=== PATIENT | female | born 1960 | race Caucasian/White ===

== ENCOUNTER 2022-09-21 10:11 | Outpatient (REF) | payer OTHER, SELFPAY ==
--- NOTE | 2022-09-21 10:19 | ECG_ITS ---
Test Reason : cp Blood Pressure : / mmHG Vent. Rate : 066 BPM Atrial Rate : 066 BPM P-R Int : 188 ms QRS Dur : 080 ms QT Int : 388 ms P-R-T Axes : 000 174 127 degrees QTc Int : 406 ms Limb leads reversal Normal sinus rhythm Left posterior fascicular block Abnormal ECG No previous ECGs available Referred By: Larisa Amato Electronically Signed By:Salvatore Martinez
[2022-09-21 10:27] LABS: MANUAL DIFF FLAG NO
[2022-09-21 10:47] LABS: Basophils Absolute Auto 0.1 X10*3/uL (0.0-0.2); Basophils Percent Auto 0.5 % (0-2); Eosinophils Absolute Auto 0.3 X10*3/uL (0.0-0.4); Eosinophils Percent Auto 2.8 % (0-4); Hematocrit 42.6 % (37.0-47.0); Hemoglobin 13.8 g/dl (12.0-16.0); Imm Gran Abs Auto 0.05 X10*3/uL (0.00-0.03); Imm Gran Pct Auto 0.4 % (0.0-0.4); Lymphocytes Absolute Auto 1.5 X10*3/uL (1.2-4.9); Lymphocytes Percent Auto 13.4 % (20-40); Mean Corpuscular HGB Conc 32.4 g/dl (31.0-35.0); Mean Corpuscular Hemoglobin 26.3 pg (27.0-33.0); Mean Corpuscular Volume 81.1 fL (80.0-98.0); Mean Platelet Volume 9.7 fL (9.4-12.3); Monocytes Absolute Auto 0.7 X10*3/uL (0.1-1.2); Monocytes Percent Auto 5.7 % (2-11); Neutrophils Absolute Auto 8.9 x10*3/uL (2.0-8.3); Neutrophils Percent Auto 77.2 % (45-73); Platelet Count 284 X10*3/uL (160-400); Red Blood Count 5.25 X10*6/uL (4.20-5.50); Red Cell Distribution Width 15.6 % (11.0-16.0); White Blood Count 11.5 X10*3/uL (4.8-10.8)
[2022-09-21 10:54] LABS: Estimated Average Glucose 123 mg/dL; Hemoglobin A1c % 5.9 %
[2022-09-21 11:35] LABS: Alanine Aminotransferase 8 U/L (0-31); Albumin Level 4.2 g/dL (3.5-5.0); Alkaline Phosphatase 71 U/L (39-117); Anion Gap 11 (12-20); Aspartate Amino Transferase 12 U/L (5-31); Bilirubin Total 0.3 mg/dL (0.0-1.0); Blood Urea Nitrogen 24 mg/dL (9-16); Carbon Dioxide 25 mmol/L (22-29); Chloride 109 mmol/L (96-108); Cholesterol 178 mg/dL; Estimated Glomerular Filt Rate 32; Glucose Fasting 108 mg/dL (60-99); HDL Cholesterol 31 mg/dL; LDL Cholesterol Calculated 108 mg/dl; Potassium 4.2 mmol/L (3.3-5.1); Sodium 141 mmol/L (135-145); Total Protein 7.4 g/dL (6.5-8.0); Triglycerides 197 mg/dL
[2022-09-21 11:50] LABS: Vitamin B12 696 pg/mL (200-900)
[2022-09-21 11:52] LABS: TSH reflex Free T4 4.36 uIU/mL (0.32-4.0); Vitamin D 25-OH Total 28.5 ng/mL (>30)
[2022-09-21 12:47] LABS: Free T4 (Free Thyroxine) 0.84 ng/dL (0.71-1.85)
[2022-09-28 14:54] LABS: Vitamin B1 8 nmol/L (8-30)
== END 2022-09-21 10:12 | disposition home or self-care (01) ==
LOC: HO.LAB 10:11
PROVIDERS: PCP Internal Medicine; Visit Provider Nurse Practitioner Family
DX: Z13.220 Encounter for screening for lipoid disorders (principal); Z13.29 Encounter for screening for other suspected endocrine disorder; Z13.21 Encounter for screening for nutritional disorder; Z13.0 Encounter for screening for diseases of the blood and blood-forming organs and certain disorders involving the immune mechanism; R07.9 Chest pain, unspecified; G62.9 Polyneuropathy, unspecified; E11.9 Type 2 diabetes mellitus without complications
CPT/HCPCS: 36415; 80053; 80061; 82306; 82607; 82746; 83036; 84425; 84439; 84443; 85025; 93005

== ENCOUNTER → 2022-09-21 10:19 | Outpatient (BNV) | payer OTHER, SELFPAY | PROVIDERS: PCP Internal Medicine; Visit Provider Internal Medicine Cardiovascular Disease | DX: I44.5 Left posterior fascicular block (principal); R94.31 Abnormal electrocardiogram [ECG] [EKG] | CPT/HCPCS: 93010 ==

== ENCOUNTER 2022-10-07 07:31 | Outpatient (AMB) | payer OTHER, SELFPAY ==
[2022-10-07 07:33] VITALS: BP 130/76; PULSE 59; O2SAT 95; BMI 35.9
--- NOTE | 2022-10-07 07:33 | A.OFFPC_ITS ---
Vital Signs 10/07/22 07:33 Height 5 ft 1.5 in Weight 193 lb BMI 35.9 BP 130/76 Blood Pressure Location Lt brachial Position Sitting Pulse 59 Pulse Source Pulse Oximeter Pulse Oximetry (%) 95 Oxygen Delivery Method Room Air Intake Visit Reasons: PE Intake Note: Patient is requesting gabapentin 300 BID. Requesting refill on insulins requesting a 90 day supply. Allergies No Known Allergies Allergy (Verified 10/07/22 07:52) Medication List - Last Reconciled 10/07/22 by VAISHNAVI Beaver aspirin 81 mg PO DAILY atorvastatin 80 mg PO BEDTIME clopidogrel 75 mg PO DAILY famotidine (Pepcid) 20 mg PO DAILY insulin glargine (Basaglar KwikPen U-100 Insulin) 20 units (0.2 mL) subcut QPM insulin lispro 12 units (0.12 mL) subcut TID metoprolol tartrate 25 mg PO BID Tobacco use date assessed: 08/05/22 Dental Screening Dental Screen Date: 10/07/22 Did you have a dental visit in the last 12 months?: Yes Did you have a dental problem in the last 6 months where you did not have access to dental care?: No Was dental information given to patient?: Patient has dentist HPI HPI Comments History of Present Illness Details [age] year female past medical history significant for type 2 diabetes mellitus, hypercholesteremia history of CVA x2, CAD and peripheral neuropathy. Records obtain by Catherine from past admission; echo showed LVEF of 60 present patient recommended to continue on aspirin, statin and metoprolol with LDL goal less than 70 for history of CAD and recommended to follow up with Cardiology outpatient for 30 day monitor. MRI showed a question of a tiny focus showing acute ischemia patient was evaluated by Neurology likely does not explain patient's syncopal episode on admission with left leg numbness per neurology patient recommended start aspirin and Plavix and follow up with Neurology as an outpatient. Patient and daughter report that she was seen by him sure Cardiology and was recommended to start back on her metoprolol 25 mg b.i.d., will request last office note. Complete lab work reviewed with patient revealed elevated BUN and creatinine, 08/03.61. Patient reports a history of CKD not currently followed by Nephrology as she just recently moved from [place]. Referral entered. TSH elevated at 4.36, follow-up lab work ordered. Patient is slightly vitamin-D deficient at 28.5 will start patient on a 1000 units vitamin- D supplements daily and follow-up in 3 months. Mammogram: Patient reports never had mammogram, order entered Eye Exam: Last eye exam completed in [place] last year June 2021, referral entered for diabetic eye exam. Pap: Reports last Pap smear 4 years ago, referral entered to board saw runner. BMD: Order entered Colonscopy: Patient reports never had colonoscopy screening completed, referral entered to gastroenterology. Immunizations: TDAP; 8 years ago Patient also reports previously on gabapentin 300 mg b.i.d. for peripheral neuropathy, however when she moves she ran out her medications and they were not continued. Will start patient on 300 mg gabapentin at bedtime. Patient agreeable to plan of care. [facility] Medical History (Updated 10/07/22 @ 08:16 by VAISHNAVI Beaver) Gout Hypertension Myocardial infarction Surgical History H/O removal of cyst History of heart artery stent Family History Mother No problems noted. Father Alzheimer disease Brother No problems noted. Daughter No problems noted. Son No problems noted. Son No problems noted. Social History Household Members: Other Housing: Apartment Alcohol intake: never Patient Tobacco Use Status: Former Tobacco user Tobacco use type: Cigarette e-Cigarette/Vaping Use: Former Use Second Hand Smoke Exposure: No Current occupational status: unemployed Cognitive needs: No Hearing needs: No Vision needs: Yes Questionnaire PHQ-9 Over the last 2 weeks, how often have you been bothered by any of the following problems? 1. Little interest or pleasure in doing things: not at all 2. Feeling down, depressed, or hopeless: not at all 3. Trouble falling or staying asleep, or sleeping too much: not at all 4. Feeling tired or having little energy: not at all 5. Poor appetite or overeating: not at all 6. Feeling bad about yourself - or that you are a failure or have let yourself or your family down: not at all 7. Trouble concentrating on things, such as reading the newspaper or watching television: not at all 8. Moving or speaking so slowly that other people could have noticed. Or the opposite - being so fidgety or restless that you have been moving around a lot more than usual: not at all 9. Thoughts that you would be better off or of hurting yourself in some way: not at all Total score: 0 Depression Screening Interpretation: Negative 24755 - PHQ-9 Billing: Yes Source: Developed by Drs. Mahesh Calvillo, Shyanne Carrillo, Patrice Lee and colleagues, with an educational efe from [employer]. Thrive Questionnaire Date Thrive assessed: 08/05/22 AUDIT C Alcohol Use Questionnaire (AUDIT-C) 1. How often do you have a drink containing alcohol?: Monthly or less 2. How many drinks containing alcohol do you have on a typical day when you are drinking?: 1 or 2 3. How often do you have six or more drinks on one occasion?: Never Total Score: 1 SKYLAR-7 AMB Questionnaire SKYLAR-7 Date SKYLAR - 7 assessed: 08/05/22 Source: Developed by Drs. Mahesh Calvillo, Shyanne Carrillo, Patrice Lee and colleagues, with an educational efe from [employer]. Review of Systems Const Denies chills, Denies fatigue, Denies fever(s) and Denies poor appetite Eyes Denies no additional complaints ENT Reports Normal hearing present Card Denies chest pain, Denies syncope, Denies rapid heart rate and Denies dyspnea Resp Denies cough and Denies dyspnea GI Denies change in stool character, Denies constipation, Denies diarrhea, Denies nausea and Denies vomiting Denies urinary frequency, Denies dysuria and Denies urinary urgency Neuro Reports Normal hearing present, Denies confusion and Denies syncope Psych Denies confusion Endo Denies fatigue Physical exam (Primary Care) Vital Signs: Last Vital Signs Pulse 59 10/07/22 07:33 BP 130/76 10/07/22 07:33 Pulse Ox 95 10/07/22 07:33 Oxygen Delivery Method Room Air 10/07/22 07:33 BMI result Body Mass Index 35.9 Tobacco/Smoking Status: Tobacco use Status Tobacco use date assessed 08/05/22 10/07/22 07:44 Patient Tobacco Use Status Former Tobacco user 10/07/22 07:44 Tobacco use type Cigarette 10/07/22 07:44 e-Cigarette/Vaping Use Former Use 10/07/22 07:44 PHQ-9: PHQ-9 Score PHQ-9: Total score 0 10/07/22 07:49 Depression Screening Interpretation: Negative Thrive Assessment: Date of Thrive Assessment Date Thrive assessed 08/05/22 10/07/22 07:44 Const General: No confusion Orientation/consciousness: No confusion HENMT Head: Yes normocephalic and Yes atraumatic Ears: external ears normal and TM's normal bilaterally General nose exam: Normal external nose present and Normal nasal mucous membranes and turbinates present Face and sinus: Yes normal facial exam and Yes sinuses nontender Mouth: moist mucous membranes Throat: Yes tonsils normal Eyes Conjunctivae: conjunctivae normal Sclerae: sclerae normal Pupils: Equal, round and reactive pupils present and Pupils normal by confrontation EOM: EOMs intact bilaterally Direct Ophthalmoscopy: normal light reflex Neck Neck: Yes no lymphadenopathy and Yes supple Thyroid: Thyroid normal Chest Chest palpation & inspection: normal inspection of the chest Resp Effort & Inspection: normal respiratory effort Auscultation: clear to auscultation bilaterally, no crackles, no rhonchi and no wheezes Cardio Rate: regular rate Rhythm: regular rhythm Peripheral pulses: radial pulses present and dorsalis pedis present GI Inspection: Yes normal to inspection Palpation (GI): Soft to palpation, nontender and No hepatosplenomegaly present Auscultation: normoactive bowel sounds Skin General skin exam: no rashes or lesions noted Neuro General: No confusion Cranial nerves: Yes Equal, round and reactive pupils present and Yes Normal hearing present Cognition (Neuro): normal cognition Gait exam (Neuro): Normal gait present Motor exam (neuro): 5/5 motor strength present throughout Deep tendon reflexes (DTR's): Right brachioradialis reflex intensity grade: 2+, Left brachioradialis reflex intensity grade: 2+, Right patellar reflex intensity grade: 2+ and Left patellar reflex intensity grade: 2+ Extrem General: No edema Assessment and Plan Assessment & Plan (1) Dyspepsia: Code(s): R10.13 - Epigastric pain Plan: Continue on famotidine. Avoid the foods that cause that, usually spicy foods, tomato products, juices, coffee, soda and foods that you're sensitive to.? After eating do not lie down, allow 3-4 hours before lying down. And keep the head of the bed above 30 degrees to avoid the acid from going up. (2) Hypercholesteremia: Code(s): E78.00 - Pure hypercholesterolemia, unspecified Plan: Continue on atorvastatin 80 mg daily. LDL goal less 70, last LDL the beginning of this month 108. Repeat fasting labs in 3 months. Avoid fried foods, chicken skin, eggs, butter,margarine, pastries and? red meat. (3) Type 2 diabetes mellitus: Comment: dx 2018 Code(s): E11.9 - Type 2 diabetes mellitus without complications Plan: Continue on insulin lispro 10 units t.i.d. and Basaglar 20 units at bedtime. Hemoglobin A1c 5.9%. Patient denies any hypoglycemic events at home. Patient and her requesting refills on insulin as they report they did never received them. Medications sent in July, August and today. Patient daughter advised to follow-up with pharmacy as why the medications are not being filled. (4) Hypertension: Code(s): I10 - Essential (primary) hypertension Plan: Metoprolol 25 mg b.i.d. re-initiated by Cardiology. Blood pressure goal less than 140/90. Follow low-salt diet and exercise. (5) CAD (coronary artery disease): Code(s): I25.10 - Atherosclerotic heart disease of [place] coronary artery without angina pectoris Plan: Continue on aspirin, Plavix and statin. Continue to follow with [facility] Cardiology. (6) CKD (chronic kidney disease): Code(s): N18.9 - Chronic kidney disease, unspecified Plan: Referral entered to establish care with Nephrology for history of CKD. (7) Physical exam, annual: Code(s): Z00.00 - Encounter for general adult medical examination without abnormal find ings Plan: Follow-up in 1 year. (8) Vitamin D deficiency: Code(s): E55.9 - Vitamin D deficiency, unspecified Plan: Patient recommended to take a 1000 units vitamin-D supplements daily and will follow-up on vitamin-D level in 3 months. (9) Peripheral neuropathy: Code(s): G62.9 - Polyneuropathy, unspecified Plan: Will reinitiate gabapentin 300 mg at bedtime for neuropathy. (10) Elevated TSH: Code(s): R79.89 - Other specified abnormal findings of blood chemistry Plan: Follow-up TSH level ordered in 3 months. Plan Follow up in 3 months Orders: Orders MM screening mammo BI Today Z12.31 - Encounter for screening mammogram for malignant neoplasm of breast XR DEXA axial skeleton Today N95.1 - Menopausal and female climacteric states Complete Blood Count Auto Diff 3 Months D72.829 - Elevated white blood cell count, unspecified Comprehensive [place]. Panel Fast 3 Months E11.9 - Type 2 diabetes mellitus without complications Lipid Panel 3 Months E78.00 - Pure hypercholesterolemia, unspecified TSH reflex Free T4 3 Months R79.89 - Other specified abnormal findings of blood chemistry Hemoglobin A1c 3 Months E11.9 - Type 2 diabetes mellitus without complications Vitamin D 25-OH Total 3 Months E55.9 - Vitamin D deficiency, unspecified Referrals Ophthalmology Referral E11.9 - Type 2 diabetes mellitus without complications, Z01.00 - Encounter for examination of eyes and vision without abnormal findings Gastroenterology Referral Z12.11 - Encounter for screening for malignant neoplasm of colon SURVEILLANCE SYSTEMS ANALYST Referral Z12.4 - Encounter for screening for malignant neoplasm of cervix Nephrology Referral N18.9 - Chronic kidney disease, unspecified Medications: New cholecalciferol (vitamin D3) 25 mcg PO DAILY 30 caps 3RF E55.9 - Vitamin D deficiency, unspecified gabapentin 300 mg PO BEDTIME 30 caps 3RF G62.9 - Polyneuropathy, unspecified Refilled insulin lispro 12 units (0.12 mL) subcut TID 15 mL 3RF insulin glargine (Basaglar KwikPen U-100 Insulin) 20 units (0.2 mL) subcut QPM 15 mL 3RF Coding Level of Care Code Est Pt Prev Care 40-64y(66123) Diagnoses Dyspepsia R10.13 Hypercholesteremia E78.00 Type 2 diabetes mellitus E11.9 Hypertension I10 CAD (coronary artery disease) I25.10 CKD (chronic kidney disease) N18.9 Physical exam, annual Z00.00 Vitamin D deficiency E55.9 Peripheral neuropathy G62.9 Elevated TSH R79.89
== END 2022-10-07 08:13 | disposition home or self-care (01) ==
PROVIDERS: PCP Internal Medicine; Visit Provider Nurse Practitioner Family
DX: Z00.00 Encounter for general adult medical examination without abnormal findings (principal); E11.22 Type 2 diabetes mellitus with diabetic chronic kidney disease; I12.9 Hypertensive chronic kidney disease with stage 1 through stage 4 chronic kidney disease, or unspecified chronic kidney disease; N18.9 Chronic kidney disease, unspecified; E78.00 Pure hypercholesterolemia, unspecified; R10.13 Epigastric pain; I25.10 Atherosclerotic heart disease of native coronary artery without angina pectoris; E55.9 Vitamin D deficiency, unspecified; G62.9 Polyneuropathy, unspecified; R79.89 Other specified abnormal findings of blood chemistry
CPT/HCPCS: 99396

== ENCOUNTER 2023-01-09 14:05 | Outpatient (AMB) | payer MEDICAID, SELFPAY ==
--- NOTE | 2023-01-09 14:10 | MHC.OFFVIS ---
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 Pt has hx of CVA x2, CAD with angioplasy with some residual chronic speech deficits. Pt reports she had a syncope episode in May,, but it was most likely related to low blood pressure. She is on aspirin 81mg daily, clopidogrel 75 mg daily and storvastin 80 mg daily. Patient also reports residual problems with her speech and swallowing since her 2nd stroke. She need to use thicker for swallowing, but she does not like it. She keep coughing and chocking when she eats. She has right sciatica pain and unsteady, uses cane. She does not sleep well, having snoring, frequent arousals, restless sleep with daytime sleepiness. 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 Sleep questionnaire: Have you ever been diagnosed with a sleep disorder? No. Have you ever had a sleep study in the past? No. Have you ever been treated for a sleep disorder? No. Do you take medications for a sleep disorder? No. Do you snore? Yes. Do you wake up gasping at night? No. Do you have episodes of apneas? No. If yes, are they witnessed? No. Do you have episodes of nocturnal chest pain or dyspnea? Yes. Do you have difficulty initiating sleep? Yes. Do you have difficulty maintaining sleep? Yes. Do you wake up tired? Yes. Do you have headaches upon awakening? No. Do you wake up with dry mouth or throat? Yes. Do you have GERD? Yes, used to. Do you have nocturia? Yes. Do you have nocturnal leg cramps? Yes. Do you have symptoms of restless legs? No. Do you act out your dreams? No. Sleep hygiene questionnaire: What is your usual sleep routine? Usual bedtime is at 3-4 am; Usual wake up time is at 10 -12 pm.. Do you take naps? No. Is your sleep environment cool, dark, and quiet? Yes. Do you exercise? No. Do you take caffeine or other stimulants? No. Do you use electronics in bed? Yes, watches TV until she gets tired What is your work schedule? N/A Hypersomnolence questionnaire: Do you have daytime tiredness or fatigue? Yes. Do you easily fall asleep when inactive? No. Have you ever had episodes of sudden weakness? No. Have you ever had episodes of sudden weakness associated with strong emotions? No. PFSH Medical History Gout Hypertension Myocardial infarction Surgical History H/O removal of cyst History of heart artery stent Family History Mother No problems noted. Father Alzheimer disease Brother No problems noted. Daughter No problems noted. Son No problems noted. Son No problems noted. Social History Household Members: Other Housing: Apartment Alcohol intake: never Patient Tobacco Use Status: Former Tobacco user Tobacco use type: Cigarette e-Cigarette/Vaping Use: Former Use Second Hand Smoke Exposure: No Current occupational status: unemployed Cognitive needs: No Hearing needs: No Vision needs: Yes Review of Systems Const All systems reviewed & are unremarkable except as noted in HPI and below ENT Reports Normal hearing present Neuro Reports Normal hearing present Physical Exam Vital Signs: Last Vital Signs Pulse 60 01/09/23 14:12 BP 128/72 01/09/23 14:12 Pulse Ox 98 01/09/23 14:12 Oxygen Delivery Method Room Air 01/09/23 14:12 BMI result Body Mass Index 33.9 Const General: cooperative Nutritional Appearance: obese Orientation/consciousness: patient oriented x3 Limitations: ambulation with cane Neck Neck: Yes full ROM and Yes supple Resp Effort & Inspection: normal respiratory effort and able to speak in complete sentences Neuro Other: left shoulder weakeness. Left side weakness. left foot dragging. General: patient oriented x3, tone normal and moves all extremities Cranial nerves: Yes Bilaterally intact EOM present, Yes Normal facial strength present, Yes Midline tongue present, Yes Normal hearing present and Yes Ability to bilaterally rotate head present Cognition (Neuro): normal cognition Gait exam (Neuro): Antalgic gait present and Staggering gait present Motor exam (neuro): 5/5 motor strength present throughout (left upper and lower extremities weakness 4/5), Pronator motor function not present and no tremor noted Deep tendon reflexes (DTR's): Right brachioradialis reflex intensity grade: 2+, Left brachioradialis reflex intensity grade: 3+, Right patellar reflex intensity grade: 2+ and Left patellar reflex intensity grade: 3+ Psych Appearance: grossly normal Mental Status: mental status grossly normal Assessment & Plan Assessment & Plan (1) Snoring: Code(s): R06.83 - Snoring (2) Daytime sleepiness: Code(s): R40.0 - Somnolence (3) History of stroke: Comment: Sep 2017,cerebral Oct 2019 Code(s): Z86.73 - Personal history of transient ischemic attack (TIA), and cerebral infarction without residual deficits (4) Difficulty swallowing: Code(s): R13.10 - Dysphagia, unspecified Plan Advised patient to undergo in lab sleep study to assess sleep apnea. Sleep hygiene education provided, having routine sleep schedule, and trying to go to bed earlier than 3am. Advised patient to limit electronic use before bedtime. Refer patient to speech therapy for swallowing evaluation. Orders: Orders RT PSG in-lab sleep study 01/09/23 E11.9 - Type 2 diabetes mellitus without complications, I25.10 - Atherosclerotic heart disease of [place] coronary artery without angina pectoris, I61.9 - Nontraumatic intracerebral hemorrhage, unspecified, N18.9 - Chronic kidney disease, unspecified, R06.83 - Snoring, R07.9 - Chest pain, unspecified, R40.0 - Somnolence, Z86.73 - Personal history of transient ischemic attack (TIA), and cerebral infarction without residual deficits Referrals Speech and Hearing Referral R13.10 - Dysphagia, unspecified, Z86.73 - Personal history of transient ischemic attack (TIA), and cerebral infarction without residual deficits Coding Level of Care Code New Pt Level 4 (79010) Diagnoses Snoring R06.83 Daytime sleepiness R40.0 History of stroke Z86.73 Difficulty swallowing R13.10
[2023-01-09 14:12] VITALS: BP 128/72; PULSE 60; O2SAT 98; BMI 33.9
== END 2023-01-09 14:47 | disposition home or self-care (01) ==
PROVIDERS: PCP Internal Medicine; Visit Provider Nurse Practitioner Family
DX: R06.83 Snoring (principal); R40.0 Somnolence; Z86.73 Personal history of transient ischemic attack (TIA), and cerebral infarction without residual deficits; R13.10 Dysphagia, unspecified
CPT/HCPCS: 99204

== ENCOUNTER → 2023-01-09 14:05 | Outpatient (BNVA) | payer MEDICAID, SELFPAY | PROVIDERS: PCP Internal Medicine; Visit Provider Nurse Practitioner Family | DX: R06.83 Snoring (principal); R40.0 Somnolence; R13.10 Dysphagia, unspecified; Z86.73 Personal history of transient ischemic attack (TIA), and cerebral infarction without residual deficits; Z95.5 Presence of coronary angioplasty implant and graft | CPT/HCPCS: 99202 ==

== ENCOUNTER 2023-01-12 13:51 | Outpatient (AMB) | payer OTHER, SELFPAY ==
[2023-01-12 14:10] VITALS: BP 98/62; PULSE 57; O2SAT 97; BMI 33.4
--- NOTE | 2023-01-12 14:10 | MHC.PC.OV ---
Vital Signs 01/12/23 14:10 Height 5 ft 3 in Weight 188 lb 6 oz BMI 33.4 BP 98/62 Blood Pressure Location Lt brachial Position Sitting Pulse 57 Pulse Source Pulse Oximeter Pulse Oximetry (%) 97 Oxygen Delivery Method Room Air Intake Visit Reasons: DM, CAD, HTN Intake Note: Pt is here for an ongoing right hip pain down the leg. shes also been experiencing right thigh pain for 2 months. 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: No Wire Wheeler: Present Accompanied by: Daughter Allergies No Known Allergies Allergy (Verified 01/12/23 14:20) Tobacco use date assessed: 08/05/22 Fall risk assessment: No Falls in past year Last assessed Fall Risk: 01/12/23 Dental Screening Dental Screen Date: 01/12/23 Did you have a dental visit in the last 12 months?: No Did you have a dental problem in the last 6 months where you did not have access to dental care?: No Was dental information given to patient?: Patient has dentist HPI HPI Comments History of Present Illness Details [age] year female past medical history significant for type 2 diabetes mellitus, hypercholesteremia history of CVA x2, CAD and peripheral neuropathy. Patient reminded to get previously ordered blood work obtained. Patient requesting prescription for glucometer strips however patient does not know the name of her glucometer patient advised to call office to provide us with what strips she needs. Patient reports having left-sided sciatica pain currently on gabapentin 300 mg at bedtime for her neuropathy pain. Patient advised to take Tylenol as needed for pain. Patient reports she is currently taking ibuprofen as needed for pain, patient reminded be previously discussed she not should not be taking NSAID medications as she is on a blood thinner to prevent complications such as GI bleeding. Patient reports that Tylenol does not work. Recommended physical therapy however patient declines. Will send Lidoderm patches for pain. [facility] Medical History Gout Hypertension Myocardial infarction Surgical History H/O removal of cyst History of heart artery stent Family History Mother No problems noted. Father Alzheimer disease Brother No problems noted. Daughter No problems noted. Son No problems noted. Son No problems noted. Social History Household Members: Other Housing: Apartment Alcohol intake: never Patient Tobacco Use Status: Former Tobacco user Tobacco use type: Cigarette e-Cigarette/Vaping Use: Former Use Second Hand Smoke Exposure: No Current occupational status: unemployed Cognitive needs: No Hearing needs: No Vision needs: Yes Questionnaire Thrive Questionnaire Date Thrive assessed: 08/05/22 SKYLAR-7 AMB Questionnaire SKYLAR-7 Date SKYLAR - 7 assessed: 08/05/22 Source: Developed by Drs. Mahesh Calvillo, Shyanne Carrillo, Patrice Lee and colleagues, with an educational efe from [employer]. Review of Systems Const Denies chills, Denies fatigue, Denies fever(s) and Denies poor appetite Eyes Denies no additional complaints ENT Reports Normal hearing present Card Denies chest pain, Denies syncope, Denies rapid heart rate and Denies dyspnea Resp Denies cough and Denies dyspnea GI Denies change in stool character, Denies constipation, Denies diarrhea, Denies nausea and Denies vomiting Denies urinary frequency, Denies dysuria and Denies urinary urgency Neuro Reports Normal hearing present, Denies confusion and Denies syncope Psych Denies confusion Endo Denies fatigue Physical exam (Primary Care) Vital Signs: Last Vital Signs Pulse 57 01/12/23 14:10 BP 98/62 01/12/23 14:10 Pulse Ox 97 01/12/23 14:10 Oxygen Delivery Method Room Air 01/12/23 14:10 BMI result Body Mass Index 33.4 Tobacco/Smoking Status: Tobacco use Status Tobacco use date assessed 08/05/22 01/12/23 14:12 Patient Tobacco Use Status Former Tobacco user 01/12/23 14:12 Tobacco use type Cigarette 01/12/23 14:12 e-Cigarette/Vaping Use Former Use 01/12/23 14:12 Thrive Assessment: Date of Thrive Assessment Date Thrive assessed 08/05/22 01/12/23 14:12 Const General: No confusion Orientation/consciousness: No confusion HENMT Head: Yes normocephalic and Yes atraumatic Eyes Conjunctivae: conjunctivae normal Chest Chest palpation & inspection: normal inspection of the chest Resp Effort & Inspection: normal respiratory effort Auscultation: clear to auscultation bilaterally, no crackles, no rhonchi and no wheezes Cardio Rate: regular rate Rhythm: regular rhythm Heart sounds: S1 normal heart sound present and S2 normal heart sound present Peripheral pulses: dorsalis pedis present GI Inspection: Yes normal to inspection General: Yes no CVA tenderness Back/Spine/Pelvis Back: no CVA tenderness Neuro General: No confusion Cranial nerves: Yes Normal hearing present Extrem General: No edema Assessment and Plan Assessment & Plan (1) Left sided sciatica: Code(s): M54.32 - Sciatica, left side Plan: Lidoderm patches sent to patient's pharmacy. Patient advise can take [id number] Tylenol as needed for pain. Patient recommended to proceed with physical therapy however she is adamant that she did cannot complete physical therapy due to the pain. (2) Hypertension: Code(s): I10 - Essential (primary) hypertension Plan: Continue on current medications. Blood pressure low in office today 98/62. Patient reports she is following up with her on site nurse today prescribes her metoprolol, patient advised to follow up if they would recommend decreasing her medications as at time she does experience low blood pressures and occasional dizziness. Patient agreeable to plan of care. (3) Type 2 diabetes mellitus: Comment: dx 2018 Code(s): E11.9 - Type 2 diabetes mellitus without complications Plan: Patient reminded to get previously ordered blood work completed to follow-up on hemoglobin A1c. Continue on insulin lispro 12 units t.i.d. and Basaglar. Patient educated to decrease the amount of carbohydrate intake such as pasta, bread, rice and potatoes are all sugar in addition to the sweet stuff. Remember that fruits are good but they also have sugar (4) Hypercholesteremia: Code(s): E78.00 - Pure hypercholesterolemia, unspecified Plan: Continue on a atorvastatin 80 mg at bedtime. Avoid fried foods, chicken skin, eggs, butter,margarine, pastries and?? red meat. (5) CKD (chronic kidney disease): Code(s): N18.9 - Chronic kidney disease, unspecified Plan: Continue to establish care with commercial finance manager. Plan Follow-up in 3 months Medications: New lidocaine 5% (Lidoderm) leave on most painful area for up to 12 hrs 1 patch topical DAILY 15 ea 0RF M54.32 - Sciatica, left side Refilled famotidine (Pepcid) 20 mg PO DAILY 30 tabs 3RF R10.13 - Epigastric pain Coding Level of Care Code Est Pt Level 4 (92467) Diagnoses Left sided sciatica M54.32 Hypertension I10 Type 2 diabetes mellitus E11.9 Hypercholesteremia E78.00 CKD (chronic kidney disease) N18.9
== END 2023-01-12 14:47 | disposition home or self-care (01) ==
PROVIDERS: PCP Internal Medicine; Visit Provider Nurse Practitioner Family
DX: I12.9 Hypertensive chronic kidney disease with stage 1 through stage 4 chronic kidney disease, or unspecified chronic kidney disease (principal); E11.22 Type 2 diabetes mellitus with diabetic chronic kidney disease; E78.00 Pure hypercholesterolemia, unspecified; N18.9 Chronic kidney disease, unspecified; M54.32 Sciatica, left side
CPT/HCPCS: 99214

== ENCOUNTER 2023-01-12 15:00 | Outpatient (REF) | payer MEDICAID, SELFPAY ==
[2023-01-12 15:18] LABS: MANUAL DIFF FLAG NO
[2023-01-12 15:32] LABS: Basophils Absolute Auto 0.1 X10*3/uL (0.0-0.2); Basophils Percent Auto 0.6 % (0-2); Eosinophils Absolute Auto 0.3 X10*3/uL (0.0-0.4); Eosinophils Percent Auto 2.8 % (0-4); Hematocrit 41.3 % (37.0-47.0); Hemoglobin 13.4 g/dl (12.0-16.0); Imm Gran Abs Auto 0.07 X10*3/uL (0.00-0.03); Imm Gran Pct Auto 0.6 % (0.0-0.4); Lymphocytes Absolute Auto 1.8 X10*3/uL (1.2-4.9); Lymphocytes Percent Auto 14.8 % (20-40); Mean Corpuscular HGB Conc 32.4 g/dl (31.0-35.0); Mean Corpuscular Hemoglobin 27.1 pg (27.0-33.0); Mean Corpuscular Volume 83.6 fL (80.0-98.0); Mean Platelet Volume 9.7 fL (9.4-12.3); Monocytes Absolute Auto 0.6 X10*3/uL (0.1-1.2); Monocytes Percent Auto 4.7 % (2-11); Neutrophils Absolute Auto 9.1 x10*3/uL (2.0-8.3); Neutrophils Percent Auto 76.5 % (45-73); Platelet Count 309 X10*3/uL (160-400); Red Blood Count 4.94 X10*6/uL (4.20-5.50); Red Cell Distribution Width 13.8 % (11.0-16.0); White Blood Count 11.9 X10*3/uL (4.8-10.8)
[2023-01-12 15:45] LABS: Estimated Average Glucose 111 mg/dL; Hemoglobin A1c % 5.5 % (<6.0)
[2023-01-12 16:32] LABS: Alanine Aminotransferase 8 U/L (0-31); Albumin Level 4.2 g/dL (3.5-5.0); Alkaline Phosphatase 77 U/L (39-117); Anion Gap 12 (12-20); Aspartate Amino Transferase 13 U/L (5-31); Bilirubin Total 0.5 mg/dL (0.0-1.0); Blood Urea Nitrogen 31 mg/dL (9-16); Calcium 9.8 mg/dL (8.4-10.2); Carbon Dioxide 30 mmol/L (22-29); Chloride 104 mmol/L (96-108); Cholesterol 150 mg/dL (<200); Estimated Glomerular Filt Rate 31; Glucose Fasting 109 mg/dL (60-99); HDL Cholesterol 28 mg/dL (>40); LDL Cholesterol Calculated 87 mg/dL (<100); Potassium 4.4 mmol/L (3.3-5.1); Sodium 142 mmol/L (135-145); Total Protein 7.4 g/dL (6.5-8.0); Triglycerides 176 mg/dL (<150)
[2023-01-12 16:38] LABS: TSH reflex Free T4 4.31 uIU/mL (0.32-4.0); Vitamin D 25-OH Total 33.5 ng/mL (>30)
[2023-01-12 19:02] LABS: Free T4 (Free Thyroxine) 1.06 ng/dL (0.71-1.85)
== END 2023-01-12 15:01 | disposition home or self-care (01) ==
LOC: HO.LAB 15:00
PROVIDERS: PCP Internal Medicine; Visit Provider Nurse Practitioner Family
DX: E11.9 Type 2 diabetes mellitus without complications (principal); E78.00 Pure hypercholesterolemia, unspecified; D72.829 Elevated white blood cell count, unspecified; E55.9 Vitamin D deficiency, unspecified; R79.89 Other specified abnormal findings of blood chemistry
CPT/HCPCS: 36415; 80053; 80061; 82306; 83036; 84439; 84443; 85025

== ENCOUNTER 2023-11-13 16:33 | Outpatient (AMB) | payer OTHER, SELFPAY ==
[2023-11-13 16:35] VITALS: BP 120/76; PULSE 68; O2SAT 95; BMI 33.5
--- NOTE | 2023-11-13 16:35 | A.OFFPC_ITS ---
Vital Signs 11/13/23 16:35 Height 5 ft 3 in Weight 189 lb 4 oz BMI 33.5 BP 120/76 Blood Pressure Location Lt brachial Position Sitting Pulse 68 Pulse Source Pulse Oximeter Pulse Oximetry (%) 95 Oxygen Delivery Method Room Air Intake Visit Reasons: Follow Up Transport Analyst Required: No Accompanied by: Self / Same As Patient Allergies No Known Allergies Allergy (Verified 11/13/23 17:02) Medication List - Last Reconciled 11/13/23 by Nicholas Dunlap MD aspirin 81 mg PO DAILY atorvastatin 80 mg PO BEDTIME cholecalciferol (vitamin D3) (Vitamin D3) 25 mcg PO DAILY clopidogrel 75 mg PO DAILY famotidine (Pepcid) 20 mg PO DAILY gabapentin 300 mg PO BEDTIME insulin glargine (Lantus Solostar U-100 Insulin) 20 units (0.2 mL) subcut QPM 90 days insulin lispro 12 units (0.12 mL) subcut TID lidocaine 5% (Lidoderm) 1 patch topical DAILY PRN metoprolol tartrate 12.5 mg PO BID Tobacco use date assessed: 11/13/23 Fall risk assessment: No Falls in past year Last assessed Fall Risk: 11/13/23 Dental Screening Dental Screen Date: 11/13/23 Did you have a dental visit in the last 12 months?: No Did you have a dental problem in the last 6 months where you did not have access to dental care?: No Was dental information given to patient?: No HPI Follow Up HPI Details Patient comes in today for her follow up visit - she used to see Larisa Vargas, who is no longer with the practice Patient states that she has been experiencing recurrent left hip pain that radiates down into her left leg for the past 2 months now Recalls that she started out with right-sided sciatica pain over her right lower back about 2 months ago Notes that the sciatica on her right lower back has decreased a lot in severity lately but she now notes (+) pain in her left hip She also reported noticing on and off pain and swelling near the base of her left big toe over the past couple of weeks - thinks that she may have gout (?) Adds that she was started on weekly Ozempic injections by her skiver sock linings in [place] previously to help her lose weight and she was down to around 177 pounds at one point She was on Ozempic for about 3 months but could not get it refilled again recently as her skiver sock linings told her she now has to get it from her PCP instead She denies any headaches or dizziness Denies any chest pains, no SOB No nausea/vomiting, no abdominal pain No change in bowel habits noted She needs a couple of her Rx refilled She has no recent labs done - her most recent labs were from back in December 2022 [facility] Medical History (Updated 11/14/23 @ 06:09 by Nicholas Dunlap MD) Chronic kidney disease, stage III (moderate) Obesity (BMI 30-39.9) GERD without esophagitis Peripheral neuropathy Vitamin D deficiency Mixed hyperlipidemia Essential hypertension Diabetes mellitus Coronary artery disease Gout Myocardial infarction Surgical History (Updated 11/14/23 @ 05:36 by Nicholas Dunlap MD) History of coronary angioplasty with insertion of stent H/O removal of cyst Family History Mother No problems noted. Father Alzheimer disease Brother No problems noted. Daughter No problems noted. Son No problems noted. Son No problems noted. Social History Household Members: Other Housing: Apartment Alcohol intake: never Patient Tobacco Use Status: Former Tobacco user Tobacco use type: Cigarette e-Cigarette/Vaping Use: Former Use Second Hand Smoke Exposure: No Current occupational status: unemployed Cognitive needs: No Hearing needs: No Vision needs: Yes Questionnaire PHQ-9 Over the last 2 weeks, how often have you been bothered by any of the following problems? 1. Little interest or pleasure in doing things: not at all 2. Feeling down, depressed, or hopeless: not at all 3. Trouble falling or staying asleep, or sleeping too much: not at all 4. Feeling tired or having little energy: not at all 5. Poor appetite or overeating: not at all 6. Feeling bad about yourself - or that you are a failure or have let yourself or your family down: not at all 7. Trouble concentrating on things, such as reading the newspaper or watching television: not at all 8. Moving or speaking so slowly that other people could have noticed. Or the opposite - being so fidgety or restless that you have been moving around a lot more than usual: not at all 9. Thoughts that you would be better off or of hurting yourself in some way: not at all Total score: 0 Depression Screening Interpretation: Negative Depression Screening Done: Yes 59594 - PHQ-9 Billing: Yes Source: Developed by Drs. Mahesh Calvillo, Shyanne Carrillo, Patrice Lee and colleagues, with an educational efe from [employer]. Thrive Questionnaire Date Thrive assessed: 11/13/23 I am a: Patient What is your living situation today?: I have a steady place to live Within the past 12 months, did the food you bought not last and you didn't have the money to get more?: Never true Within the past 12 months, did you worry whether your food would run out before you got money to buy more?: Never true Do you have trouble paying for medicines?: No Do you have trouble getting transportation to medical appointments?: No Do you have trouble paying your heating and electricity bill?: No Do you have trouble taking care of your child, family member or friend?: No Do you have trouble with day-to-day activities such as bathing, preparing meals, shopping, managing finances, etc.?: No Are you currently unemployed and looking for a job?: No Are you interested in more education?: No Please select the resources that you would like help with: None Currently or been in a relationship where the following occur: No concerns reported THRIVE Score: 0 AUDIT C Alcohol Use Questionnaire (AUDIT-C) 1. How often do you have a drink containing alcohol?: Monthly or less 2. How many drinks containing alcohol do you have on a typical day when you are drinking?: 1 or 2 3. How often do you have six or more drinks on one occasion?: Never Total Score: 1 Score Reviewed/Action Taken: Yes SKYLAR-7 AMB Questionnaire SKYLAR-7 Date SKYLAR - 7 assessed: 11/13/23 Feeling nervous, anxious, or on edge: 0 = Not at all Not being able to stop or control worryin = Not at all Worrying too much about different things: 0 = Not at all Trouble relaxin = Not at all Being so restless that it is hard to sit still: 0 = Not at all Becoming easily annoyed or irritable: 0 = Not at all Feeling afraid as if something awful might happen: 0 = Not at all Total SKYLAR-7 score (0-4 normal; 5-9 mild; 10-14 moderate; 15-21 severe): 0 Source: Developed by Drs. Mahesh Calvillo, Shyanne Carrillo, Patrice Lee and colleagues, with an educational efe from [employer]. Review of Systems Const Denies chills, Denies fatigue, Denies fever(s) and Denies headache(s) ENT Denies dysphagia, Denies dizziness, Denies otalgia, Denies headache(s), Denies neck pain, Denies odynophagia and Denies sore throat Card Denies chest pain, Denies palpitations and Denies dyspnea Resp Denies chest congestion, Denies cough and Denies dyspnea GI Denies abdominal pain, Denies constipation, Denies dysphagia, Denies heartburn, Denies diarrhea, Denies nausea, Denies odynophagia and Denies vomiting Denies difficulty voiding, Denies nocturia, Denies dysuria and Denies urinary urgency Musc Reports back pain (over the right lower back), Reports arthralgias (in the left hip ), Denies neck pain and Reports radiating pain into limb (down the left leg) Skin/Breast Denies rash Neuro Denies dizziness and Denies headache(s) Endo Denies fatigue and Denies palpitations Physical exam (Primary Care) Vital Signs: Last Vital Signs Pulse 68 11/13/23 16:35 BP 120/76 11/13/23 16:35 Pulse Ox 95 11/13/23 16:35 Oxygen Delivery Method Room Air 11/13/23 16:35 BMI result Body Mass Index 33.5 Tobacco/Smoking Status: Tobacco use Status Tobacco use date assessed 11/13/23 11/13/23 16:42 Patient Tobacco Use Status Former Tobacco user 11/13/23 16:42 Tobacco use type Cigarette 11/13/23 16:42 e-Cigarette/Vaping Use Former Use 11/13/23 16:42 PHQ-9: PHQ-9 Score PHQ-9: Total score 0 11/13/23 17:03 Depression Screening Interpretation: Negative Thrive Assessment: Date of Thrive Assessment Date Thrive assessed 11/13/23 11/13/23 16:42 Currently or been in a relationship where the following occur: No concerns reported Const General: no acute distress and alert HENMT Ears: TM's normal bilaterally and EAC's normal Throat: Yes posterior oropharynx normal and Yes tonsils normal (no TP congestion) Neck Neck: Yes no lymphadenopathy and Yes supple Thyroid: Thyroid normal Resp Auscultation: clear to auscultation bilaterally, no rales and no wheezes Cardio Rate: regular rate Rhythm: regular rhythm Heart sounds: no murmurs GI Palpation (GI): Soft to palpation and nontender Auscultation: normal bowel sounds General: Yes no CVA tenderness Back/Spine/Pelvis Back: no CVA tenderness Thoracic/Lumbar Spine: straight leg raise negative bilaterally and paraspinal muscle tenderness on the right in the mid lumbar and in the lower lumbar Skin Rashes: no rashes Extrem General: Yes no clubbing, cyanosis or edema Left lower extremity: hip/thigh Details: tenderness Location: of the hip Assessment and Plan Assessment & Plan (1) Coronary artery disease: Comment: S/P ID; had PCI to RCA and LAD in [place] in 2019 Code(s): I25.10 - Atherosclerotic heart disease of [place] coronary artery without angina pectoris Qualifiers: Coronary Disease-Associated Artery/Lesion type: [place] artery [place] vs. transplanted heart: [place] heart Associated angina: without angina Qualified Code(s): I25.10 - Atherosclerotic heart disease of [place] coronary artery without angina pectoris Plan: Patient currently has no acute cardiac symptoms Continue Aspirin 81 mg QD and Clopidogrel 75 mg QD - she needs to be on lifelong antiplatelet Tx due to her Hx of PCI Continue Metoprolol tartrate 12.5 mg BID Follow up with cardiology (in [place]) as scheduled (2) Mixed hyperlipidemia: Code(s): E78.2 - Mixed hyperlipidemia Plan: Reinforced low cholesterol diet As she has not had any follow up labs done in almost a year now, will have get go and get her labs done NICHOLE Continue Atorvastatin 80 mg QD Will have patient recheck her labs again in 4 months for follow up - she is advised to try getting these done just BEFORE she comes in for her follow up appointment next time (3) Diabetes mellitus: Code(s): E11.9 - Type 2 diabetes mellitus without complications Qualifiers: Diabetes mellitus type: type 2 Diabetes mellitus terminal system operator insulin use: with terminal system operator use Diabetes mellitus complication status: with neurologic complications Diabetes mellitus complication detail: with unspecified neuropathy Qualified Code(s): E11.40 - Type 2 diabetes mellitus with diabetic neuropathy, unspecified; Z79.4 - intermediate card tender (current) use of insulin Plan: Her HgbA1c was at 5.5% when it was last checked in December 2022; will have her get some follow up labs done and have this updated NICHOLE Reinforced diabetic diet Continue Lantus 20 units Q HS and Insulin Lispro 12 units SQ TID with meals She was also on Ozempic injections for about 3 months (previously prescribed by her skiver sock linings) but she could not get it refilled recently as she was reportedly advised that she now has to get it from her PCP Have advised her that we will at least wait and see how her labs are first before deciding on whether to start her back on Ozempic or not (4) Essential hypertension: Code(s): I10 - Essential (primary) hypertension Plan: Reinforced low sodium diet - goal is systolic BP of at least 120 to 130 mm or less Continue Metoprolol tartrate 12.5 mg BID (5) Chronic kidney disease, stage III (moderate): Code(s): N18.30 - Chronic kidney disease, stage 3 unspecified Qualifiers: Chronic kidney disease stage 3 subtype: stage 3b (GFR 30-44) Qualified Code(s): N18.32 - Chronic kidney disease, stage 3b Plan: Patient's GFR was around 32 when her labs were last done back in December 2022 Will have her recheck her labs and renal function NICHOLE for follow up Have reminded patient that the best way to keep her renal function stable is with tight control of her diabetes and blood pressure She is currently not on VILMA inhibitors or ARB for renoprotection - will consider this once we have her recent lab results for review Should also consider referring her to nephrology for follow up and further management in the near future (6) Peripheral neuropathy: Code(s): G62.9 - Polyneuropathy, unspecified Qualifiers: Peripheral neuropathy type: polyneuropathy, unspecified Qualified Code(s): G62.9 - Polyneuropathy, unspecified Plan: Continue Gabapentin 300 mg Q HS and Lidocaine 5% patches QD PRN (7) GERD without esophagitis: Code(s): K21.9 - Gastro-esophageal reflux disease without esophagitis Plan: Reinforced dietary restrictions in GERD Continue Famotidine 20 mg QD (8) Vitamin D deficiency: Code(s): E55.9 - Vitamin D deficiency, unspecified Plan: Continue Vitamin D3 1000 units QD (9) Pain in toe of right foot: Code(s): M79.674 - Pain in right toe(s) Plan: This is primarily on her left big toe, and patient is suspecting that she may have gout Will check her serum uric acid level for further evaluation when she goes for her labs (10) Right-sided low back pain with sciatica: Code(s): M54.41 - Lumbago with sciatica, right side Qualifiers: Chronicity: unspecified Sciatica laterality: sciatica of right side Qualified Code(s): M54.41 - Lumbago with sciatica, right side Plan: Will send patient for lumbar spine x-rays for further evaluation (11) Left hip pain: Code(s): M25.552 - Pain in left hip Plan: Will also send her for x-rays of the left hip for further evaluation (12) Obesity (BMI 30-39.9): Code(s): E66.9 - Obesity, unspecified Plan: Reinforced diet/exercise as tolerated/lose weight Plan Follow up in 4 months Orders: Orders Complete Blood Count Auto Diff 11/13/23 D64.9 - Anemia, unspecified Comprehensive [place]. Panel Fast 11/13/23 E78.00 - Pure hypercholesterolemia, unspecified Lipid Panel 11/13/23 E78.00 - Pure hypercholesterolemia, unspecified UA CC w/rflx Micro + Cult 11/13/23 R30.0 - Dysuria Vitamin D 25-OH Total 11/13/23 E55.9 - Vitamin D deficiency, unspecified XR lumbar spine 2-3V 11/13/23 M54.41 - Lumbago with sciatica, right side, M54.50 - Low back pain, unspecified Vitamin B12 and Folate 11/13/23 E53.8 - Deficiency of other specified B group vitamins, G62.9 - Polyneuropathy, unspecified TSH reflex Free T4 11/13/23 E78.00 - Pure hypercholesterolemia, unspecified Microalbumin, Random (w Creat) 11/13/23 E11.9 - Type 2 diabetes mellitus without complications Uric Acid 11/13/23 M10.9 - Gout, unspecified Hemoglobin A1c 11/13/23 E11.9 - Type 2 diabetes mellitus without complications Complete Blood Count Auto Diff 4 Months D64.9 - Anemia, unspecified Comprehensive [place]. Panel Fast 4 Months E78.00 - Pure hypercholesterolemia, unspecified Lipid Panel 4 Months E78.00 - Pure hypercholesterolemia, unspecified Hemoglobin A1c 4 Months E11.9 - Type 2 diabetes mellitus without complications XR hip LT min 2V 11/13/23 M25.552 - Pain in left hip C Reactive Protein 11/13/23 M25.552 - Pain in left hip, M79.674 - Pain in right toe(s) Erythrocyte Sedimentation Rate 11/13/23 M25.552 - Pain in left hip, M79.674 - Pain in right toe(s) Medications: Changed From lidocaine 5% (Lidoderm) leave on most painful area for up to 12 hrs 1 patch topical DAILY 15 ea 0RF M54.32 - Sciatica, left side To lidocaine 5% (Lidoderm) leave on most painful area for up to 12 hrs 1 patch topical DAILY PRN 90 ea 1RF pain M54.32 - Sciatica, left side From metoprolol tartrate 25 mg PO BID 60 tabs 1RF To metoprolol tartrate 12.5 mg PO BID Coding Level of Care Code Est Pt Level 4 (43756) Complex EM visit Add On G2211 Diagnoses Coronary artery disease involving [place] coronary artery of [place] heart without angina pectoris I25.10 Coronary Disease-Associated Artery/Lesion type: [place] artery [place] vs. transplanted heart: [place] heart Associated angina: without angina Mixed hyperlipidemia E78.2 Type 2 diabetes mellitus with diabetic neuropathy, with long-term current use of insulin E11.40; Z79.4 Diabetes mellitus type: type 2 Diabetes mellitus terminal system operator insulin use: with senior care use Diabetes mellitus complication status: with neurologic complications Diabetes mellitus complication detail: with unspecified neuropathy Essential hypertension I10 Stage 3b chronic kidney disease N18.32 Chronic kidney disease stage 3 subtype: stage 3b (GFR 30-44) Peripheral polyneuropathy G62.9 Peripheral neuropathy type: polyneuropathy, unspecified GERD without esophagitis K21.9 Vitamin D deficiency E55.9 Pain in toe of right foot M79.674 Right-sided low back pain with right-sided sciatica, unspecified chronicity M54.41 Chronicity: unspecified Sciatica laterality: sciatica of right side Left hip pain M25.552 Obesity (BMI 30-39.9) E66.9
== END 2023-11-13 17:17 | disposition home or self-care (01) ==
PROVIDERS: PCP Internal Medicine; Visit Provider Internal Medicine
DX: I12.9 Hypertensive chronic kidney disease with stage 1 through stage 4 chronic kidney disease, or unspecified chronic kidney disease (principal); E11.40 Type 2 diabetes mellitus with diabetic neuropathy, unspecified; Z79.4 Long term (current) use of insulin; N18.32 Chronic kidney disease, stage 3b; I25.10 Atherosclerotic heart disease of native coronary artery without angina pectoris; E78.2 Mixed hyperlipidemia; G62.9 Polyneuropathy, unspecified; K21.9 Gastro-esophageal reflux disease without esophagitis; E55.9 Vitamin D deficiency, unspecified; M79.674 Pain in right toe(s); M54.41 Lumbago with sciatica, right side; M25.552 Pain in left hip

== ENCOUNTER → 2023-11-13 16:33 | Outpatient (BNVA) | payer OTHER, SELFPAY | PROVIDERS: PCP Internal Medicine; Visit Provider Internal Medicine | DX: I25.10 Atherosclerotic heart disease of native coronary artery without angina pectoris (principal); E78.2 Mixed hyperlipidemia; E11.40 Type 2 diabetes mellitus with diabetic neuropathy, unspecified; I12.9 Hypertensive chronic kidney disease with stage 1 through stage 4 chronic kidney disease, or unspecified chronic kidney disease; E11.22 Type 2 diabetes mellitus with diabetic chronic kidney disease; N18.32 Chronic kidney disease, stage 3b; G62.9 Polyneuropathy, unspecified; K21.9 Gastro-esophageal reflux disease without esophagitis; E55.9 Vitamin D deficiency, unspecified; M79.674 Pain in right toe(s); M54.41 Lumbago with sciatica, right side; M25.552 Pain in left hip; E66.9 Obesity, unspecified; Z79.4 Long term (current) use of insulin | CPT/HCPCS: 96127; 99212 ==

== ENCOUNTER 2024-03-05 12:32 | Outpatient (REF) | payer MEDICAID, SELFPAY ==
--- NOTE | ~2024-03-05 | XR_ITS ---
CLINICAL HISTORY: M25.552 - Pain in left hip 2 view, left hip Comparison: None Findings: No acute fracture or dislocation. Mild arthritic change. The soft tissues are unremarkable. IMPRESSION: No acute findings. This document has been electronically signed by: Angely Quiñones MD on 03/06/2024 14:18:33
--- NOTE | ~2024-03-05 | XR_ITS ---
CLINICAL HISTORY: M54.50 - Low back pain, unspecified 3 views lumbar spine Comparison: None Findings: Normal alignment. No acute fractures or dislocation. No significant loss of intervertebral disc height. Facet osteoarthritis is present at L4-L5 and L5-S1. IMPRESSION: No acute findings. This document has been electronically signed by: Angely Quiñones MD on 03/06/2024 14:19:14
[2024-03-05 13:01] LABS: MANUAL DIFF FLAG NO
[2024-03-05 13:16] LABS: Basophils Absolute Auto 0.1 X10*3/uL (0.0-0.2); Basophils Percent Auto 0.7 % (0-2); Eosinophils Absolute Auto 0.4 X10*3/uL (0.0-0.4); Eosinophils Percent Auto 3.8 % (0-4); Hematocrit 40.1 % (37.0-47.0); Imm Gran Abs Auto 0.05 X10*3/uL (0.00-0.03); Imm Gran Pct Auto 0.5 % (0.0-0.4); Lymphocytes Absolute Auto 1.5 X10*3/uL (1.2-4.9); Lymphocytes Percent Auto 14.8 % (20-40); Mean Corpuscular HGB Conc 32.4 g/dl (31.0-35.0); Mean Corpuscular Hemoglobin 27.3 pg (27.0-33.0); Mean Corpuscular Volume 84.2 fL (80.0-98.0); Mean Platelet Volume 10.1 fL (9.4-12.3); Monocytes Absolute Auto 0.8 X10*3/uL (0.1-1.2); Monocytes Percent Auto 7.3 % (2-11); Neutrophils Absolute Auto 7.6 x10*3/uL (2.0-8.3); Neutrophils Percent Auto 72.9 % (45-73); Platelet Count 263 X10*3/uL (160-400); Red Blood Count 4.76 X10*6/uL (4.20-5.50); Red Cell Distribution Width 14.4 % (11.0-16.0); White Blood Count 10.4 X10*3/uL (4.8-10.8)
[2024-03-05 13:25] LABS: Estimated Average Glucose 160 mg/dL; Hemoglobin A1C 187.1256 umol/L; Hemoglobin A1c % 7.2 % (<6.0); Total Hemoglobin (HGBA1C) 3368.8007 umol/L
[2024-03-05 13:57] LABS: Erythrocyte Sedimentation Rate 23 MM/HR (0-20)
[2024-03-05 14:17] LABS: Alanine Aminotransferase 14 U/L (0-31); Albumin Level 4.4 g/dL (3.5-5.0); Alkaline Phosphatase 106 U/L (39-117); Anion Gap 13 (12-20); Aspartate Amino Transferase 17 U/L (5-31); Bilirubin Total 0.6 mg/dL (0.0-1.0); Blood Urea Nitrogen 32 mg/dL (9-16); C Reactive Protein 3.38 mg/dL (< or = 0.50); Calcium 9.1 mg/dL (8.4-10.2); Carbon Dioxide 26 mmol/L (22-29); Chloride 108 mmol/L (96-108); Cholesterol 198 mg/dL (<200); Estimated Glomerular Filt Rate 34; Glucose Fasting 138 mg/dL (60-99); HDL Cholesterol 39 mg/dL (>40); LDL Cholesterol Calculated 128 mg/dL (<100); Potassium 4.7 mmol/L (3.3-5.1); Sodium 142 mmol/L (135-145); Triglycerides 157 mg/dL (<150); Uric Acid 9.1 mg/dL (2.4-5.7)
[2024-03-05 14:17] LABS: Appearance Urine Clear; Color Urine Yellow; Glucose Urine UA Negative (Negative); Leukocyte Esterase Urine Moderate (2+) (Negative); Nitrite Urine Negative (Negative); PH 5.5 (5.0-9.0); Specific Gravity - Urine 1.015 (1.005-1.025); UMIC TRIGGER UACC YES; Urine Blood Negative (Negative); Urine Ketones Negative (Negative); Urine Protein 30 (1+) mg/dL (Neg-Trace)
[2024-03-05 14:21] LABS: Vitamin D 25-OH Total 28.2 ng/mL (>30)
[2024-03-05 14:26] LABS: Folate 9.9 ng/mL (> or = 4.0); Vitamin B12 706 pg/mL (200-900)
[2024-03-05 14:41] LABS: Bacteria Urine 3+ (None Seen); Hyaline Casts Urine 0-2 /LPF (0-2); RBC Urine 0-2 /HPF (0-2); UACC Culture Trigger YES; WBC Urine 21-50 /HPF (0-5)
[2024-03-05 15:06] LABS: Creatinine Urine 96.52 mg/dL
[2024-03-05 15:11] LABS: Free T4 (Free Thyroxine) 1.13 ng/dL (0.71-1.85)
== END 2024-03-05 12:33 | disposition home or self-care (01) ==
LOC: HO.XRAY 12:32
PROVIDERS: PCP Internal Medicine; Visit Provider Internal Medicine
DX: M25.552 Pain in left hip (principal)
CPT/HCPCS: 36415; 72100; 73502; 80053; 80061; 81001; 82043; 82306; 82570; 82607; 82746; 83036; 84439; 84443; 84550; 85025; 85652; 86140; 87086

== ENCOUNTER → 2024-03-05 12:56 | Outpatient (BNV) | payer MEDICAID, SELFPAY | PROVIDERS: PCP Internal Medicine; Visit Provider Radiology Diagnostic Radiology | DX: M25.552 Pain in left hip (principal); M54.50 Low back pain, unspecified | CPT/HCPCS: 72100; 73502 ==

== ENCOUNTER 2024-03-13 16:26 | Outpatient (AMB) | payer MEDICARE, MEDICAID, SELFPAY ==
[2024-03-13 16:28] VITALS: BP 106/70; PULSE 63; O2SAT 96; BMI 37.2
--- NOTE | 2024-03-13 16:28 | MHC.PC.OV ---
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 Required: No Accompanied by: Self / Same As Patient Allergies No Known Allergies Allergy (Verified 03/13/24 17:09) Medication List - Last Reconciled 03/13/24 by Nicholas Dunlap MD aspirin 81 mg PO DAILY atorvastatin 80 mg PO BEDTIME cholecalciferol (vitamin D3) (Vitamin D3) 25 mcg PO DAILY clopidogrel 75 mg PO DAILY famotidine (Pepcid) 20 mg PO DAILY gabapentin 300 mg PO BEDTIME insulin glargine (Lantus Solostar U-100 Insulin) 20 units (0.2 mL) subcut QPM 90 days insulin lispro 12 units (0.12 mL) subcut TID lidocaine 5% (Lidoderm) 1 patch topical DAILY PRN metoprolol tartrate 12.5 mg PO BID Tobacco use date assessed: 03/13/24 Fall risk assessment: No Falls in past year Last assessed Fall Risk: 03/13/24 Dental Screening Dental Screen Date: 03/13/24 Did you have a dental visit in the last 12 months?: No Did you have a dental problem in the last 6 months where you did not have access to dental care?: No Was dental information given to patient?: No HPI 4 MONTH HPI Details Patient comes in today for her follow-up visit States that she feels okay She denies any headaches or dizziness Denies any chest pains, no shortness of breath No nausea/vomiting, no abdominal pain No change in bowel habits noted States that she is experiencing recurrent pain in her right big toe and over her right ankle Notes that her right big toe sometimes feel swollen as well when it gets very painful States that she also needs a prescription for a new glucometer as her old unit that she has had for 6 years recently broke down She had her follow-up labs done last week - to discuss her results [facility] Medical History (Updated 03/14/24 @ 05:05 by Nicholas Dunlap MD) Primary osteoarthritis of left hip Chronic kidney disease, stage III (moderate) Obesity (BMI 30-39.9) GERD without esophagitis Peripheral neuropathy Vitamin D deficiency Mixed hyperlipidemia Essential hypertension Diabetes mellitus Coronary artery disease Gout Myocardial infarction Surgical History History of coronary angioplasty with insertion of stent H/O removal of cyst Family History Mother No problems noted. Father Alzheimer disease Brother No problems noted. Daughter No problems noted. Son No problems noted. Son No problems noted. Social History Household Members: Other Housing: Apartment Alcohol intake: never Patient Tobacco Use Status: Former Tobacco user Tobacco use type: Cigarette e-Cigarette/Vaping Use: Former Use Second Hand Smoke Exposure: No Current occupational status: unemployed Cognitive needs: No Hearing needs: No Vision needs: Yes Questionnaire PHQ-9 Over the last 2 weeks, how often have you been bothered by any of the following problems? 1. Little interest or pleasure in doing things: not at all 2. Feeling down, depressed, or hopeless: not at all 3. Trouble falling or staying asleep, or sleeping too much: not at all 4. Feeling tired or having little energy: not at all 5. Poor appetite or overeating: not at all 6. Feeling bad about yourself - or that you are a failure or have let yourself or your family down: not at all 7. Trouble concentrating on things, such as reading the newspaper or watching television: not at all 8. Moving or speaking so slowly that other people could have noticed. Or the opposite - being so fidgety or restless that you have been moving around a lot more than usual: not at all 9. Thoughts that you would be better off or of hurting yourself in some way: not at all Total score: 0 Depression Screening Interpretation: Negative Depression Screening Done: Yes 43101 - PHQ-9 Billing: Yes Source: Developed by Drs. Mahesh Calvillo, Shyanne Carrillo, Patrice Lee and colleagues, with an educational efe from [employer]. Thrive Questionnaire Date Thrive assessed: 03/13/24 I am a: Patient What is your living situation today?: I have a steady place to live Within the past 12 months, did the food you bought not last and you didn't have the money to get more?: Never true Within the past 12 months, did you worry whether your food would run out before you got money to buy more?: Never true Do you have trouble paying for medicines?: No Do you have trouble getting transportation to medical appointments?: No Do you have trouble paying your heating and electricity bill?: No Do you have trouble taking care of your child, family member or friend?: No Do you have trouble with day-to-day activities such as bathing, preparing meals, shopping, managing finances, etc.?: No Are you currently unemployed and looking for a job?: No Are you interested in more education?: No Please select the resources that you would like help with: None Currently or been in a relationship where the following occur: No concerns reported THRIVE Score: 0 AUDIT C Alcohol Use Questionnaire (AUDIT-C) 1. How often do you have a drink containing alcohol?: Monthly or less 2. How many drinks containing alcohol do you have on a typical day when you are drinking?: 1 or 2 3. How often do you have six or more drinks on one occasion?: Never Total Score: 1 Score Reviewed/Action Taken: Yes SKYLAR-7 AMB Questionnaire SKYLAR-7 Date SKYLAR - 7 assessed: 03/13/24 Feeling nervous, anxious, or on edge: 0 = Not at all Not being able to stop or control worryin = Not at all Worrying too much about different things: 0 = Not at all Trouble relaxin = Not at all Being so restless that it is hard to sit still: 0 = Not at all Becoming easily annoyed or irritable: 0 = Not at all Feeling afraid as if something awful might happen: 0 = Not at all Total SKYLAR-7 score (0-4 normal; 5-9 mild; 10-14 moderate; 15-21 severe): 0 Source: Developed by Drs. Mahesh Calvillo, Shyanne Carrillo, Patrice Lee and colleagues, with an educational efe from [employer]. Review of Systems Const Denies chills, Denies fatigue, Denies fever(s), Denies headache(s) and Reports weight gain ENT Denies dysphagia, Denies dizziness, Denies otalgia, Denies headache(s), Denies neck pain, Denies odynophagia and Denies sore throat Card Denies chest pain, Denies palpitations and Denies dyspnea Resp Denies chest congestion, Denies cough and Denies dyspnea GI Denies abdominal pain, Denies constipation, Denies dysphagia, Denies heartburn, Denies diarrhea, Denies nausea, Denies odynophagia and Denies vomiting Denies difficulty voiding, Denies nocturia, Denies dysuria and Denies urinary urgency Musc Reports back pain (over the right lower back), Reports arthralgias (in the left hip; increased pain in R big toe and R ankle lately), Denies neck pain and Reports radiating pain into limb (down the left leg) Skin/Breast Denies rash Neuro Denies dizziness and Denies headache(s) Endo Denies fatigue and Denies palpitations Physical exam (Primary Care) Vital Signs: Last Vital Signs Pulse 63 03/13/24 16:28 BP 106/70 03/13/24 16:28 Pulse Ox 96 03/13/24 16:28 Oxygen Delivery Method Room Air 03/13/24 16:28 BMI result Body Mass Index 37.2 Tobacco/Smoking Status: Tobacco use Status Tobacco use date assessed 03/13/24 03/13/24 16:35 Patient Tobacco Use Status Former Tobacco user 03/13/24 16:35 Tobacco use type Cigarette 03/13/24 16:35 e-Cigarette/Vaping Use Former Use 03/13/24 16:35 PHQ-9: PHQ-9 Score PHQ-9: Total score 0 03/13/24 17:25 Depression Screening Interpretation: Negative Thrive Assessment: Date of Thrive Assessment Date Thrive assessed 03/13/24 03/13/24 16:35 Currently or been in a relationship where the following occur: No concerns reported Const General: no acute distress and alert HENMT Ears: TM's normal bilaterally and EAC's normal Throat: Yes posterior oropharynx normal and Yes tonsils normal (no TP congestion) Neck Neck: Yes supple and No lymphadenopathy Thyroid: Thyroid normal Resp Auscultation: clear to auscultation bilaterally, no rales and no wheezes Cardio Rate: regular rate Rhythm: regular rhythm Heart sounds: no murmurs GI Palpation (GI): Soft to palpation and nontender Auscultation: normal bowel sounds General: Yes no CVA tenderness Back/Spine/Pelvis Back: no CVA tenderness Thoracic/Lumbar Spine: straight leg raise negative bilaterally and paraspinal muscle tenderness on the right in the mid lumbar and in the lower lumbar Skin Rashes: no rashes Extrem General: Yes no clubbing, cyanosis or edema Right lower extremity: ankle Details: tenderness; no swelling and foot Details: tenderness Location: of the great toe Location: along the entire digit and no edema Left lower extremity: hip/thigh Details: tenderness Location: of the hip Results Reviewed Results Reviewed: Laboratory Tests 03/05/24 03/05/24 12:59 13:20 WBC 10.4 Hgb 13.0 Hct 40.1 Plt Count 263 ESR 23 H Sodium 142 Potassium 4.7 Creatinine 1.55 H Estimated GFR 34 Fasting Glucose 138 H Hemoglobin A1c % 7.2 H Uric Acid 9.1 H Calcium 9.1 D AST 17 ALT 14 C-Reactive Protein 3.38 H Triglycerides 157 H Cholesterol 198 LDL Cholesterol, Calc 128 H HDL Cholesterol 39 L Vitamin B12 706 25-OH Vitamin D Total 28.2 L TSH 4.80 H Free T4 1.13 Ur Specific [place] 1.015 Urine Protein 30 (1+) H Urine Glucose (UA) Negative Urine Blood Negative Urine Nitrite Negative Ur Leukocyte Esterase Moderate (2+) H Microalb/Creat Ratio 202.0 H Coding Level of Care Code Est Pt Level 4 (31622) Complex EM visit Add On G2211 Diagnoses Coronary artery disease involving [place] coronary artery of [place] heart without angina pectoris I25.10 Coronary Disease-Associated Artery/Lesion type: [place] artery [place] vs. transplanted heart: [place] heart Associated angina: without angina Mixed hyperlipidemia E78.2 Type 2 diabetes mellitus with diabetic neuropathy, with long-term current use of insulin E11.40; Z79.4 Diabetes mellitus type: type 2 Diabetes mellitus senior living insulin use: with senior living use Diabetes mellitus complication status: with neurologic complications Diabetes mellitus complication detail: with unspecified neuropathy Essential hypertension I10 Stage 3b chronic kidney disease N18.32 Chronic kidney disease stage 3 subtype: stage 3b (GFR 30-44) Peripheral polyneuropathy G62.9 Peripheral neuropathy type: polyneuropathy, unspecified Chronic gout without tophus, unspecified cause, unspecified site [id number] Gout site: unspecified site Gout etiology: unspecified cause 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 GERD without esophagitis K21.9 Vitamin D deficiency E55.9 Right-sided low back pain with right-sided sciatica, unspecified chronicity M54.41 Chronicity: unspecified Sciatica laterality: sciatica of right side Primary osteoarthritis of left hip M16.12 Obesity (BMI 30-39.9) E66.9 Additional Codes PHQ-9 - 00789 - PHQ-9 Billing: Yes ([id number]) Assessment & Plan Assessment & Plan (1) Coronary artery disease: Comment: S/P [place]; had PCI to RCA and LAD in [place] in 2019 Code(s): I25.10 - Atherosclerotic heart disease of [place] coronary artery without angina pectoris Category: Medical Qualifiers: Coronary Disease-Associated Artery/Lesion type: [place] artery [place] vs. transplanted heart: [place] heart Associated angina: without angina Qualified Code(s): I25.10 - Atherosclerotic heart disease of [place] coronary artery without angina pectoris Plan: Patient again currently has no acute cardiac symptoms Continue Aspirin 81 mg QD and Clopidogrel 75 mg QD - she needs to be on lifelong antiplatelet Tx due to her Hx of PCI Continue Metoprolol tartrate 12.5 mg BID Follow up with cardiology (in [place]) as scheduled (2) Mixed hyperlipidemia: Code(s): E78.2 - Mixed hyperlipidemia Category: Medical Plan: Results of her labs done last week reviewed and discussed with patient - she is advised and cautioned that her cholesterol levels have increased significantly from her previous number in 2022 She did not get her labs done 3 months ago as instructed so she has had no follow-up labs done between December of 2022 and last week Reinforced low-cholesterol diet - patient admits to poor compliance with her diet and eating habits over the past few months, including the holidays Will continue her on Atorvastatin 80 mg QD for now Will have her recheck her labs and fasting lipids in 3 months for follow-up (3) Diabetes mellitus: Code(s): E11.9 - Type 2 diabetes mellitus without complications Category: Medical Qualifiers: Diabetes mellitus type: type 2 Diabetes mellitus senior living insulin use: with lobsterman use Diabetes mellitus complication status: with neurologic complications Diabetes mellitus complication detail: with unspecified neuropathy Qualified Code(s): E11.40 - Type 2 diabetes mellitus with diabetic neuropathy, unspecified; Z79.4 - roasterman (current) use of insulin Plan: Her HgbA1c was at 7.2% on her recent labs (she was at 5.5% when her HgbA1c was previously checked in December 2022 as she did not go and get her labs done about 3 months ago as instructed) - goal is at least <7.0% but ideally <6.5% Reinforced diabetic diet - patient admits to poor compliance with her diet and eating habits over the past several months Will continue her on Lantus 20 units Q HS She was also on Humalog 12 units TID with meals but as she is going to be started on Ozempic, will have her LOWER her Humalog slightly to 10 units TID to lessen her risks for hypoglycemia Will start her as well again on Ozempic 0.25 mg SQ once a week - she was on Ozempic injections for about 3 months last year (previously prescribed by her industrial tech instructor) but she could not get it refilled a few months ago as she was reportedly advised by her industrial tech instructor that she now has to get it from her PCP Rx for a new glucometer unit and test strips were sent into her pharmacy as well, per request (4) Essential hypertension: Code(s): I10 - Essential (primary) hypertension Category: Medical Plan: Reinforced low sodium diet - goal is systolic BP of at least 120 to 130 mm or less Continue Metoprolol tartrate 12.5 mg BID (5) Chronic kidney disease, stage III (moderate): Code(s): N18.30 - Chronic kidney disease, stage 3 unspecified Category: Medical Qualifiers: Chronic kidney disease stage 3 subtype: stage 3b (GFR 30-44) Qualified Code(s): N18.32 - Chronic kidney disease, stage 3b Plan: Patient's GFR was around 32 when her labs were last done back in December 2022 She was supposed to have this rechecked last October 2023 but she did not do so Her current renal function appear to be stable and is mostly unchanged from previous Have reminded patient again that the best way to keep her renal function stable is with tight control of her diabetes and blood pressure She is currently not on an VILMA inhibitor or ARB for renoprotection - will consider this at her next appointment We are also considering referring her to nephrology for follow up and further management of her CKD in the near future (6) Peripheral neuropathy: Code(s): G62.9 - Polyneuropathy, unspecified Category: Medical Qualifiers: Peripheral neuropathy type: polyneuropathy, unspecified Qualified Code(s): G62.9 - Polyneuropathy, unspecified Plan: Continue Gabapentin 300 mg Q HS and Lidocaine 5% patches QD PRN (7) Gout: Code(s): M10.9 - Gout, unspecified Category: Medical Qualifiers: Gout site: unspecified site Gout etiology: unspecified cause 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 Qualified Code(s): M1A.9XX0 - Chronic gout, unspecified, without tophus (tophi) Plan: Patient is advised that her serum uric acid level is elevated at 9.1 mg/dl Her CRP and sed rate were also both elevated and have advised patient that her recent recurrent right big toe pain and ankle pain are likely due to gout Discussed low purine diet Will start patient on Allopurinol 100 mg QD Will recheck her serum uric acid level in a few months for follow up (8) GERD without esophagitis: Code(s): K21.9 - Gastro-esophageal reflux disease without esophagitis Category: Medical Plan: Reinforced dietary restrictions in GERD Continue Famotidine 20 mg QD (9) Vitamin D deficiency: Code(s): E55.9 - Vitamin D deficiency, unspecified Category: Medical Plan: Continue Vitamin D3 1000 units QD (10) Right-sided low back pain with sciatica: Code(s): M54.41 - Lumbago with sciatica, right side Category: Medical Qualifiers: Chronicity: unspecified Sciatica laterality: sciatica of right side Qualified Code(s): M54.41 - Lumbago with sciatica, right side Plan: X-rays of the lumbar spine done last week revealed (+) facet osteoarthritis at L4-L5 and L5-S1 Reinforced activity and weight-lifting restrictions Have advised patient that we can refer her to physical therapy if her low back pain continues to bother her a lot - patient states that she will call for referral to PT when needed (11) Primary osteoarthritis of left hip: Code(s): M16.12 - Unilateral primary osteoarthritis, left hip Category: Medical Plan: Left hip x-rays done last week also revealed (+) mild OA changes in the left hip (12) Obesity (BMI 30-39.9): Code(s): E66.9 - Obesity, unspecified Category: Medical Plan: Reinforced diet/exercise as tolerated/lose weight - patient has gained over 20 pounds in the last 3 months She admits to poor compliance with her diet and eating habits since her last visit despite our advice She is hoping to get back on Ozempic as she reportedly lost a lot of weight while on it for about 3 months sometime last year when her industrial tech instructor started her on it but she was unable to get it refilled Will now start her back on Ozempic 0.25 mg SQ once a week - this is started primarily for her diabetes but it can also help her lose weight Plan Follow-up in 3 months Orders: Orders Comprehensive [place]. Panel Fast 3 Months E78.00 - Pure hypercholesterolemia, unspecified Lipid Panel 3 Months E78.00 - Pure hypercholesterolemia, unspecified TSH reflex Free T4 3 Months E78.00 - Pure hypercholesterolemia, unspecified UA CC w/rflx Micro + Cult 3 Months R30.0 - Dysuria Hemoglobin A1c 3 Months E11.9 - Type 2 diabetes mellitus without complications Vitamin D 25-OH Total 3 Months E55.9 - Vitamin D deficiency, unspecified Vitamin B12 and Folate 3 Months E53.8 - Deficiency of other specified B group vitamins Uric Acid 3 Months M10.9 - Gout, unspecified Complete Blood Count Auto Diff 3 Months D64.9 - Anemia, unspecified Microalbumin, Random (w Creat) 3 Months E11.9 - Type 2 diabetes mellitus without complications Medications: New semaglutide (Ozempic) 0.25 mg (0.368 mL) subcut QWEEK 3 mL 2RF E11.40 - Type 2 diabetes mellitus with diabetic neuropathy, unspecified, Z79.4 - roasterman (current) use of insulin blood-glucose meter (Glucocard Expression) As directed 1 ea 0RF E11.40 - Type 2 diabetes mellitus with diabetic neuropathy, unspecified, Z79.4 - roasterman (current) use of insulin blood glucose control, normal (Glucocard Expression solution) As directed 4 times a day - is on insulin 1 ea 12RF E11.40 - Type 2 diabetes mellitus with diabetic neuropathy, unspecified, Z79.4 - halfway (current) use of insulin allopurinol 100 mg PO DAILY 30 days 30 tabs 3RF blood sugar diagnostic (Glucocard Expression strips) As directed 4 times a day - is on insulin injections 100 ea 12RF E11.40 - Type 2 diabetes mellitus with diabetic neuropathy, unspecified, Z79.4 - halfway (current) use of insulin Changed From insulin lispro 12 units (0.12 mL) subcut TID 15 mL 3RF To insulin lispro (Humalog KwikPen (U-100) Insulin) 10 units (0.1 mL) subcut TID 15 mL 3RF
== END 2024-03-13 17:26 | disposition home or self-care (01) ==
PROVIDERS: PCP Internal Medicine; Visit Provider Internal Medicine
DX: E11.40 Type 2 diabetes mellitus with diabetic neuropathy, unspecified (principal); Z79.4 Long term (current) use of insulin; I12.9 Hypertensive chronic kidney disease with stage 1 through stage 4 chronic kidney disease, or unspecified chronic kidney disease; N18.32 Chronic kidney disease, stage 3b; I25.10 Atherosclerotic heart disease of native coronary artery without angina pectoris; E78.2 Mixed hyperlipidemia; G62.9 Polyneuropathy, unspecified; M1A.9XX0 Chronic gout, unspecified, without tophus (tophi); K21.9 Gastro-esophageal reflux disease without esophagitis; E55.9 Vitamin D deficiency, unspecified; M54.41 Lumbago with sciatica, right side; M16.12 Unilateral primary osteoarthritis, left hip

== ENCOUNTER → 2024-03-13 16:26 | Outpatient (BNVA) | payer MEDICARE, MEDICAID, SELFPAY | PROVIDERS: PCP Internal Medicine; Visit Provider Internal Medicine | DX: I25.10 Atherosclerotic heart disease of native coronary artery without angina pectoris (principal); E78.2 Mixed hyperlipidemia; E11.40 Type 2 diabetes mellitus with diabetic neuropathy, unspecified; I12.9 Hypertensive chronic kidney disease with stage 1 through stage 4 chronic kidney disease, or unspecified chronic kidney disease; E11.22 Type 2 diabetes mellitus with diabetic chronic kidney disease; N18.32 Chronic kidney disease, stage 3b; G62.9 Polyneuropathy, unspecified; M1A.9XX0 Chronic gout, unspecified, without tophus (tophi); Z79.4 Long term (current) use of insulin | CPT/HCPCS: 96127; 99212 ==

== ENCOUNTER 2024-06-07 15:03 | Outpatient (REF) | payer MEDICARE, MEDICAID, SELFPAY ==
[2024-06-07 15:23] LABS: MANUAL DIFF FLAG NO
[2024-06-07 15:31] LABS: Basophils Absolute Auto 0.1 X10*3/uL (0.0-0.2); Basophils Percent Auto 0.7 % (0-2); Eosinophils Absolute Auto 0.5 X10*3/uL (0.0-0.4); Eosinophils Percent Auto 4.7 % (0-4); Hematocrit 40.2 % (37.0-47.0); Hemoglobin 12.8 g/dl (12.0-16.0); Imm Gran Abs Auto 0.15 X10*3/uL (0.00-0.03); Imm Gran Pct Auto 1.5 % (0.0-0.4); Lymphocytes Absolute Auto 1.3 X10*3/uL (1.2-4.9); Lymphocytes Percent Auto 13.8 % (20-40); Mean Corpuscular HGB Conc 31.8 g/dl (31.0-35.0); Mean Corpuscular Hemoglobin 26.2 pg (27.0-33.0); Mean Corpuscular Volume 82.2 fL (80.0-98.0); Mean Platelet Volume 9.7 fL (9.4-12.3); Monocytes Absolute Auto 0.6 X10*3/uL (0.1-1.2); Monocytes Percent Auto 6.1 % (2-11); Neutrophils Absolute Auto 7.1 x10*3/uL (2.0-8.3); Neutrophils Percent Auto 73.2 % (45-73); Platelet Count 316 X10*3/uL (160-400); Red Blood Count 4.89 X10*6/uL (4.20-5.50); White Blood Count 9.7 X10*3/uL (4.8-10.8)
[2024-06-07 15:39] LABS: Estimated Average Glucose 151 mg/dL; Hemoglobin A1C 181.6044 umol/L; Hemoglobin A1c % 6.9 % (<6.0); Total Hemoglobin (HGBA1C) 3478.3505 umol/L
--- OUTSIDE RECORDS SUMMARY | 2024-06-07 15:44 | XMS_ITS | Clinical Summary ---
Author Organization [employer] Address [address] [place] [address] Care Team Providers Care Helper Electrical Name Role Phone Unavailable Primary Care Provider Unavailabl e Social History Tobacco Use Types Packs/Day Years Used Date Smoking Tobacco: Never Assessed Comments Unknown Sex and Gender Information Value Date Recorded Sex Assigned at Not on file Legal Sex Female 11:16 AM EDT Gender Identity Not on file Sexual Orientation Not on file Plan of Treatment Health Maintenance Due Date Last Done Comments CT Colonography 1958 Colonoscopy 1958 Colorectal Cancer Screening 1958 Depression Screening 1958 FIT DNA/Cologuard 1958 FIT 1958 FOBT 1958 SDOH Screening 1958 Sigmoidoscopy 1958 Alcohol/Substance Use Screening 1970 Tobacco Screening 1970 Hepatitis C Screening 1976 DTaP/Tdap/Td Vaccines (1 - Tdap) 1977 Pap Smear 11/19/1979 Cervical Cancer Screening 1988 HPV/Cotest 1988 Mammogram 1998 Pneumococcal Vaccine: 50+ Ye ars (1 of 1 - PCV) 2008 Zoster Vaccines (1 of 2) 2008 COVID-19 Vaccine (2023-2 5 season) 2023 Influenza Vaccine (#1) 2023 RSV Patients and Pa tients Aged 60 years or older (1 - 1-dose 75+ series) 2033 HIB Vaccines Aged Out No longer eligi ble based on patient's age to complete this topic HPV Vaccines Aged Out No longer eligi ble based on patient's age to complete this topic Hepatitis A Vaccines Aged Out No long er eligible based on patient's age to complete this topic Hepatitis B Vaccines Aged Out No long er eligible based on patient's age to complete this topic IPV Vaccines Aged Out No longer eligi ble based on patient's age to complete this topic Meningococcal Vaccine Aged Out No ander esperanza eligible based on patient's age to complete this topic RSV under 20 months Aged Out No longe r eligible based on patient's age to complete this topic Rotavirus Vaccines Aged Out No longer eligible based on patient's age to complete this topic Insurance [facility] HS FULL
--- OUTSIDE RECORDS SUMMARY | 2024-06-07 15:44 | XMS_ITS | Encounter Summary ---
Author Organization [facility] Address [address] [place] [address] Care Team Providers Care Videotape Recording Engineer Name Role Phone Unavailable Primary Care Provider Unavailabl e Reason for Visit * Reason Onset Date Comments New Patient 11/01/2022 Encounter Details Date Type Department Care Team (Late st Contact Info) Description 11/01/2022 Telephone [facility] MEDIC[facility] [address] [place], [place] [phone] Lenny Armendariz MD [address] [place], [place] [phone] New Patient Social History Tobacco Use Types Packs/Day Years Used Date Smoking Tobacco: Never Assessed Comments Unknown Sex and Gender Information Value Date Recorded Sex Assigned at Not on file Legal Sex Female 11:16 AM EDT Gender Identity Not on file Sexual Orientation Not on file documented as of this encounter Miscellaneous Notes * Telephone Encounter - [place] - 11/01/2022 1:15 PM EDT Tc to pt, to Offer LABORER DRIVER appt, appears to be invalid. Call does not go through . documented in this encounter Plan of Treatment Not on file documented as of this encounter Visit Diagnoses Not on filedocumented in this encounter
[2024-06-07 16:02] LABS: Alanine Aminotransferase 11 U/L (0-31); Anion Gap 13 (12-20); Aspartate Amino Transferase 16 U/L (5-31); Bilirubin Total 0.6 mg/dL (0.0-1.0); Blood Urea Nitrogen 30 mg/dL (9-16); Calcium 9.5 mg/dL (8.4-10.2); Carbon Dioxide 24 mmol/L (22-29); Chloride 106 mmol/L (96-108); Cholesterol 169 mg/dL (<200); Estimated Glomerular Filt Rate 27; Glucose Fasting 134 mg/dL (60-99); HDL Cholesterol 34 mg/dL (>40); LDL Cholesterol Calculated 93 mg/dL (<100); Potassium 5.2 mmol/L (3.3-5.1); Sodium 138 mmol/L (135-145); Total Protein 7.1 g/dL (6.5-8.0); Triglycerides 214 mg/dL (<150); Uric Acid 8.6 mg/dL (2.4-5.7)
[2024-06-07 16:18] LABS: Alkaline Phosphatase 127 U/L (39-117); Vitamin D 25-OH Total 28.1 ng/mL (>30)
[2024-06-07 16:30] LABS: Folate 9.7 ng/mL (> or = 4.0); Vitamin B12 596 pg/mL (200-900)
== END 2024-06-07 15:04 | disposition home or self-care (01) ==
LOC: HO.LAB 15:03
PROVIDERS: PCP Internal Medicine; Visit Provider Internal Medicine
DX: E78.00 Pure hypercholesterolemia, unspecified (principal); E11.9 Type 2 diabetes mellitus without complications; E55.9 Vitamin D deficiency, unspecified; E53.8 Deficiency of other specified B group vitamins; M10.9 Gout, unspecified; D64.9 Anemia, unspecified
CPT/HCPCS: 36415; 80053; 80061; 82306; 82607; 82746; 83036; 84443; 84550; 85025

== ENCOUNTER 2024-06-11 17:08 | Outpatient (AMB) | payer MEDICARE, MEDICAID, SELFPAY ==
[2024-06-11 17:12] VITALS: BP 130/70; PULSE 66; TEMP 36.1; O2SAT 95; BMI 37.8
--- NOTE | 2024-06-11 17:12 | MHC.PC.OV ---
Vital Signs 06/11/24 17:12 Height 5 ft 3 in Weight 213 lb 6 oz BMI 37.8 BP 130/70 Blood Pressure Location Lt brachial Position Sitting Pulse 66 Pulse Source Pulse Oximeter Temp 96.9 F Temp Source Temporal Artery Scan Pulse Oximetry (%) 95 Oxygen Delivery Method Room Air Intake Visit Reasons: DM, gout, hyperlipidemia Shaker Screen Operator Required: No Accompanied by: Daughter Allergies No Known Allergies Allergy (Verified 06/11/24 17:14) Medication List - Last Reconciled 06/11/24 by Nicholas Dunlap MD allopurinol 100 mg PO DAILY 30 days aspirin 81 mg PO DAILY atorvastatin 80 mg PO BEDTIME blood sugar diagnostic (FreeStyle Test strips) Test 4X per day blood-glucose meter (FreeStyle [place] kit) As directed cholecalciferol (vitamin D3) (Vitamin D3) 25 mcg PO DAILY clopidogrel 75 mg PO DAILY famotidine (Pepcid) 20 mg PO DAILY gabapentin 300 mg PO BEDTIME insulin glargine (Lantus Solostar U-100 Insulin) 20 units (0.2 mL) subcut QPM insulin lispro (Humalog KwikPen (U-100) Insulin) 10 units (0.1 mL) subcut TID lancets (FreeStyle Lancets) As directed- four times a day Lantus Solostar U-100 Insulin (insulin glargine) 20 units (0.2 mL) subcut QAM NS lidocaine 5% (Lidoderm) 1 patch topical DAILY PRN metoprolol tartrate 12.5 mg PO BID semaglutide (Ozempic) 0.25 mg (0.368 mL) subcut QWEEK Tobacco use date assessed: 03/13/24 Fall risk assessment: No Falls in past year Last assessed Fall Risk: 06/11/24 Dental Screening Dental Screen Date: 03/13/24 HPI DM, gout, hyperlipidemia HPI Details Patient comes in today for her follow-up visit for her DM, hyperlipidemia, HTN, CKD, gout States that she feels okay She denies any headaches or dizziness Denies any chest pains, no shortness of breath No nausea/vomiting, no abdominal pain No change in bowel habits noted Needs a couple of her Rx refilled She had her follow-up labs done last week - to discuss her results [facility] Medical History Primary osteoarthritis of left hip Chronic kidney disease, stage III (moderate) Obesity (BMI 30-39.9) GERD without esophagitis Peripheral neuropathy Vitamin D deficiency Mixed hyperlipidemia Essential hypertension Diabetes mellitus Coronary artery disease Gout Myocardial infarction Surgical History History of coronary angioplasty with insertion of stent H/O removal of cyst Family History Mother No problems noted. Father Alzheimer disease Brother No problems noted. Daughter No problems noted. Son No problems noted. Son No problems noted. Social History Household Members: Other Housing: Apartment Alcohol intake: never Patient Tobacco Use Status: Former Tobacco user Tobacco use type: Cigarette e-Cigarette/Vaping Use: Former Use Second Hand Smoke Exposure: No Current occupational status: unemployed Cognitive needs: No Hearing needs: No Vision needs: Yes Questionnaire PHQ-9 Over the last 2 weeks, how often have you been bothered by any of the following problems? 1. Little interest or pleasure in doing things: not at all 2. Feeling down, depressed, or hopeless: not at all 3. Trouble falling or staying asleep, or sleeping too much: more than half the days 4. Feeling tired or having little energy: several days 5. Poor appetite or overeating: not at all 6. Feeling bad about yourself - or that you are a failure or have let yourself or your family down: not at all 7. Trouble concentrating on things, such as reading the newspaper or watching television: not at all 8. Moving or speaking so slowly that other people could have noticed. Or the opposite - being so fidgety or restless that you have been moving around a lot more than usual: not at all 9. Thoughts that you would be better off or of hurting yourself in some way: not at all Total score: 3 Depression Screening Interpretation: Negative Depression Screening Done: Yes 59886 - PHQ-9 Billing: Yes Source: Developed by Drs. Mahesh Calvillo, Shyanne Carrillo, Patrice Lee and colleagues, with an educational eef from [employer]. Thrive Questionnaire Date Thrive assessed: 06/11/24 I am a: Patient What is your living situation today?: I have a steady place to live Within the past 12 months, did the food you bought not last and you didn't have the money to get more?: Never true Within the past 12 months, did you worry whether your food would run out before you got money to buy more?: Never true Do you have trouble paying for medicines?: No Do you have trouble getting transportation to medical appointments?: No Do you have trouble paying your heating and electricity bill?: No Do you have trouble taking care of your child, family member or friend?: No Do you have trouble with day-to-day activities such as bathing, preparing meals, shopping, managing finances, etc.?: No Are you currently unemployed and looking for a job?: No Are you interested in more education?: No Please select the resources that you would like help with: None Currently or been in a relationship where the following occur: No concerns reported THRIVE Score: 0 AUDIT C Alcohol Use Questionnaire (AUDIT-C) 1. How often do you have a drink containing alcohol?: Never 3. How often do you have six or more drinks on one occasion?: Never Total Score: 0 Score Reviewed/Action Taken: Yes SKYLAR-7 AMB Questionnaire SKYLAR-7 Date SKYLAR - 7 assessed: 06/11/24 Feeling nervous, anxious, or on edge: 0 = Not at all Not being able to stop or control worryin = Not at all Worrying too much about different things: 0 = Not at all Trouble relaxin = Not at all Being so restless that it is hard to sit still: 0 = Not at all Becoming easily annoyed or irritable: 0 = Not at all Feeling afraid as if something awful might happen: 0 = Not at all Total SKYLAR-7 score (0-4 normal; 5-9 mild; 10-14 moderate; 15-21 severe): 0 Source: Developed by Drs. Mahesh Calvillo, Shyanne Carrillo, Patrice Lee and colleagues, with an educational efe from [employer]. SKYLAR-7 Assessment Billing SKYLAR-7 Assessment Tool: SKYLAR-7 Assessment 28329 Review of Systems Const Denies chills, Denies fatigue, Denies fever(s) and Denies headache(s) ENT Denies dysphagia, Denies dizziness, Denies otalgia, Denies headache(s), Denies neck pain, Denies odynophagia and Denies sore throat Card Denies chest pain, Denies palpitations and Denies dyspnea Resp Denies chest congestion, Denies cough and Denies dyspnea GI Denies abdominal pain, Denies constipation, Denies dysphagia, Denies heartburn, Denies diarrhea, Denies nausea, Denies odynophagia and Denies vomiting Denies difficulty voiding, Denies nocturia, Denies dysuria and Denies urinary urgency Musc Reports back pain (over the right lower back, on and off), Reports arthralgias (in the left hip) and Denies neck pain Skin/Breast Denies rash Neuro Denies dizziness and Denies headache(s) Endo Denies fatigue and Denies palpitations Physical exam (Primary Care) Vital Signs: Last Vital Signs Temp 96.9 F 06/11/24 17:12 Pulse 66 06/11/24 17:12 BP 130/70 06/11/24 17:12 Pulse Ox 95 06/11/24 17:12 Oxygen Delivery Method Room Air 06/11/24 17:12 BMI result Body Mass Index 37.8 Tobacco/Smoking Status: Tobacco use Status Tobacco use date assessed 03/13/24 06/11/24 17:13 Patient Tobacco Use Status Former Tobacco user 06/11/24 17:13 Tobacco use type Cigarette 06/11/24 17:13 e-Cigarette/Vaping Use Former Use 06/11/24 17:13 PHQ-9: PHQ-9 Score PHQ-9: Total score 3 06/11/24 17:19 Depression Screening Interpretation: Negative Thrive Assessment: Date of Thrive Assessment Date Thrive assessed 06/11/24 06/11/24 17:13 Currently or been in a relationship where the following occur: No concerns reported Const General: no acute distress and alert HENMT Ears: TM's normal bilaterally and EAC's normal Throat: Yes posterior oropharynx normal and Yes tonsils normal (no TP congestion) Neck Neck: Yes supple and No lymphadenopathy Thyroid: Thyroid normal Resp Auscultation: clear to auscultation bilaterally, no rales and no wheezes Cardio Rate: regular rate Rhythm: regular rhythm Heart sounds: no murmurs GI Palpation (GI): Soft to palpation and nontender Auscultation: normal bowel sounds General: Yes no CVA tenderness Back/Spine/Pelvis Back: no CVA tenderness Thoracic/Lumbar Spine: paraspinal muscle tenderness on the right in the mid lumbar and in the lower lumbar Skin Rashes: no rashes Extrem General: Yes no clubbing, cyanosis or edema Right lower extremity: ankle Details: tenderness; no swelling and foot Details: tenderness Location: of the great toe Location: along the entire digit and no edema Left lower extremity: hip/thigh Details: tenderness Location: of the hip Results Reviewed Results Reviewed: Laboratory Tests 06/07/24 15:21 WBC 9.7 Hgb 12.8 Hct 40.2 Plt Count 316 Sodium 138 Potassium 5.2 H Creatinine 1.88 H Estimated GFR 27 Fasting Glucose 134 H Hemoglobin A1c % 6.9 H Uric Acid 8.6 H Calcium 9.5 AST 16 ALT 11 Triglycerides 214 H Cholesterol 169 LDL Cholesterol, Calc 93 HDL Cholesterol 34 L Vitamin B12 596 25-OH Vitamin D Total 28.1 L TSH 3.90 Coding Level of Care Code Est Pt Level 4 (69274) Complex EM visit Add On G2211 Diagnoses Coronary artery disease involving [place] coronary artery of [place] heart without angina pectoris I25.10 Associated angina: without angina Coronary Disease-Associated Artery/Lesion type: [place] artery [place] vs. transplanted heart: [place] heart Mixed hyperlipidemia E78.2 Type 2 diabetes mellitus with diabetic neuropathy, with long-term current use of insulin E11.40; Z79.4 Diabetes mellitus complication detail: with unspecified neuropathy Diabetes mellitus complication status: with neurologic complications Diabetes mellitus intermediate frame tender insulin use: with halfway use Diabetes mellitus type: type 2 Essential hypertension I10 Stage 3b chronic kidney disease N18.32 Chronic kidney disease stage 3 subtype: stage 3b (GFR 30-44) Peripheral polyneuropathy G62.9 Peripheral neuropathy type: polyneuropathy, unspecified Chronic gout without tophus, unspecified cause, unspecified site [id number] Chronicity: chronic Gout etiology: unspecified cause Gout site: unspecified site Presence of tophus: without tophus GERD without esophagitis K21.9 Vitamin D deficiency E55.9 Right-sided low back pain with right-sided sciatica, unspecified chronicity M54.41 Chronicity: unspecified Sciatica laterality: sciatica of right side Primary osteoarthritis of left hip M16.12 Obesity (BMI 30-39.9) E66.9 Additional Codes SKYLAR-7 Assessment Billing - SKYLAR-7 Assessment Tool: SKYLAR-7 Assessment 94703 ([id number]) PHQ-9 - 09194 - PHQ-9 Billing: Yes ([id number]) Assessment & Plan Assessment & Plan (1) Coronary artery disease: Comment: [facility]; had PCI to RCA and LAD in [place] in 2019 Code(s): I25.10 - Atherosclerotic heart disease of [place] coronary artery without angina pectoris Category: Medical Qualifiers: Associated angina: without angina Coronary Disease-Associated Artery/Lesion type: [place] artery [place] vs. transplanted heart: [place] heart Qualified Code(s): I25.10 - Atherosclerotic heart disease of [place] coronary artery without angina pectoris Plan: Patient currently has no acute cardiac symptoms Continue Aspirin 81 mg QD and Clopidogrel 75 mg QD - she needs to be on lifelong antiplatelet Tx due to her Hx of PCI Continue Metoprolol tartrate 12.5 mg BID Follow up with cardiology (in [place]) as scheduled (2) Mixed hyperlipidemia: Code(s): E78.2 - Mixed hyperlipidemia Category: Medical Plan: Results of her labs done a few days ago reviewed and discussed with patient - her cholesterol levels have improved from previous on her recent labs Reinforced low-cholesterol diet Continue Atorvastatin 80 mg QD Will have her recheck her labs and fasting lipids in 3 months for follow-up (3) Diabetes mellitus: Code(s): E11.9 - Type 2 diabetes mellitus without complications Category: Medical Qualifiers: Diabetes mellitus complication detail: with unspecified neuropathy Diabetes mellitus complication status: with neurologic complications Diabetes mellitus intermediate frame tender insulin use: with intermediate frame tender use Diabetes mellitus type: type 2 Qualified Code(s): E11.40 - Type 2 diabetes mellitus with diabetic neuropathy, unspecified; Z79.4 - shelter (current) use of insulin Plan: Her HgbA1c was at 6.9% on her labs done a few days ago (was previously at 7.2% a few months ago) - goal is at least <7.0% but ideally <6.5% Reinforced diabetic diet Continue Lantus 20 units Q HS, Humalog 10 units TID with meals and Ozempic 0.25 mg SQ once a week Will recheck her HgbA1c and FBS in a few months for follow up (4) Essential hypertension: Code(s): I10 - Essential (primary) hypertension Category: Medical Plan: Reinforced low sodium diet - goal is systolic BP of at least 120 to 130 mm or less Continue Metoprolol tartrate 12.5 mg BID (5) Chronic kidney disease, stage III (moderate): Code(s): N18.30 - Chronic kidney disease, stage 3 unspecified Category: Medical Qualifiers: Chronic kidney disease stage 3 subtype: stage 3b (GFR 30-44) Qualified Code(s): N18.32 - Chronic kidney disease, stage 3b Plan: Patient's GFR and serum creatinine appears to have declined slightly on her recent labs and she is now categorically into early stage 4 CKD Have encouraged patient to make sure to stay hydrated (by increasing her oral fluid intake) and she is reminded again that the best way to keep her renal function stable is with tight control of her diabetes and blood pressure She is currently not on an VILMA inhibitor or ARB for renoprotection - will hold off on starting her on one of these for now and see how her renal function is over the next few months We will also go ahead and refer her to nephrology for follow up and further management of her CKD Will have patient recheck her labs in 3 months for follow up (6) Peripheral neuropathy: Code(s): G62.9 - Polyneuropathy, unspecified Category: Medical Qualifiers: Peripheral neuropathy type: polyneuropathy, unspecified Qualified Code(s): G62.9 - Polyneuropathy, unspecified Plan: Continue Gabapentin 300 mg Q HS and Lidocaine 5% patches QD PRN (7) Gout: Code(s): M10.9 - Gout, unspecified Category: Medical Qualifiers: Chronicity: chronic Gout etiology: unspecified cause Gout site: unspecified site Presence of tophus: without tophus Qualified Code(s): M1A.9XX0 - Chronic gout, unspecified, without tophus (tophi) Plan: Her serum uric acid level is still elevated at 8.6 mg/dl (was at 9.1 mg/dl a few months ago) Reinforced low purine diet Continue Allopurinol 100 mg QD for now - prefer not to raise dose especially if her renal function continues to decline May need to switch her to Febuxostat later on if her renal function continues to get worse Will recheck her serum uric acid level in a few months for follow up (8) GERD without esophagitis: Code(s): K21.9 - Gastro-esophageal reflux disease without esophagitis Category: Medical Plan: Reinforced dietary restrictions in GERD Continue Famotidine 20 mg QD (9) Vitamin D deficiency: Code(s): E55.9 - Vitamin D deficiency, unspecified Category: Medical Plan: Continue Vitamin D3 1000 units QD (10) Right-sided low back pain with sciatica: Code(s): M54.41 - Lumbago with sciatica, right side Category: Medical Qualifiers: Chronicity: unspecified Sciatica laterality: sciatica of right side Qualified Code(s): M54.41 - Lumbago with sciatica, right side Plan: X-rays of the lumbar spine done a few months ago revealed (+) facet osteoarthritis at L4-L5 and L5-S1 Reinforced activity and weight-lifting restrictions Have advised patient that we can refer her to physical therapy if her low back pain continues to bother her a lot - patient states that she will call for referral to PT when needed (11) Primary osteoarthritis of left hip: Code(s): M16.12 - Unilateral primary osteoarthritis, left hip Category: Medical Plan: Left hip x-rays done a few months ago also revealed (+) mild OA changes in the left hip We can consider referring her to orthopedics if her hip pain gets worse (12) Obesity (BMI 30-39.9): Code(s): E66.9 - Obesity, unspecified Category: Medical Plan: Reinforced diet/exercise as tolerated/lose weight We started her back on Ozempic 0.25 mg SQ once a week at her last visit but it does not look like it has helped with her weight at all Plan Follow-up in 3 months Orders: Orders Comprehensive [place]. Panel Fast 3 Months E78.00 - Pure hypercholesterolemia, unspecified Microalbumin, Random (w Creat) 3 Months E11.9 - Type 2 diabetes mellitus without complications TSH reflex Free T4 3 Months E78.00 - Pure hypercholesterolemia, unspecified UA CC w/rflx Micro + Cult 3 Months R30.0 - Dysuria Vitamin D 25-OH Total 3 Months E55.9 - Vitamin D deficiency, unspecified Complete Blood Count Auto Diff 3 Months D64.9 - Anemia, unspecified Lipid Panel 3 Months E78.00 - Pure hypercholesterolemia, unspecified Hemoglobin A1c 3 Months E11.9 - Type 2 diabetes mellitus without complications Referrals Nephrology Referral N18.32 - Chronic kidney disease, stage 3b Medications: Refilled blood sugar diagnostic (FreeStyle Test strips) Test 4X per day 100 ea 2RF E11.40 - Type 2 diabetes mellitus with diabetic neuropathy, unspecified, Z79.4 - shelter (current) use of insulin semaglutide (Ozempic) 0.25 mg (0.368 mL) subcut QWEEK 3 mL 2RF E11.40 - Type 2 diabetes mellitus with diabetic neuropathy, unspecified, Z79.4 - shelter (current) use of insulin
--- OUTSIDE RECORDS SUMMARY | 2024-06-11 18:41 | XMS_ITS | Encounter Summary ---
Author Organization [employer] Address [address] [place] [address] Care Team Providers Care Power And Recovery Shift Engineer Name Role Phone Unavailable Primary Care Provider Unavailabl e Reason for Visit * Reason Onset Date Comments New Patient 11/01/2022 Encounter Details Date Type Department Care Team (Late st Contact Info) Description 11/01/2022 Telephone [facility] MEDICINE [address], [place] [phone] Lenny Armendariz MD [address] [place], [place] [phone] New Patient Social History Tobacco Use Types [...] PM EDT Tc to pt, to Offer DOOR CLOSER appt, appears to be invalid. Call does not go through . documented in this encounter Plan of Treatment Not on file documented as of this encounter Visit Diagnoses Not on filedocumented in this encounter
--- OUTSIDE RECORDS SUMMARY | 2024-06-11 18:41 | XMS_ITS | Clinical Summary ---
Author Organization [email or web address] Address [address] [place] [address] Care Team Providers Care Customer Service Representative Name Role Phone Unavailable Primary Care Provider [...] patient's age to complete this topic Insurance [facility] HS FULL
== END 2024-06-11 17:29 | disposition home or self-care (01) ==
PROVIDERS: PCP Internal Medicine; Visit Provider Internal Medicine
DX: E11.40 Type 2 diabetes mellitus with diabetic neuropathy, unspecified (principal); Z79.4 Long term (current) use of insulin; N18.32 Chronic kidney disease, stage 3b; I25.10 Atherosclerotic heart disease of native coronary artery without angina pectoris; E78.2 Mixed hyperlipidemia; I10 Essential (primary) hypertension; G62.9 Polyneuropathy, unspecified; M1A.9XX0 Chronic gout, unspecified, without tophus (tophi); K21.9 Gastro-esophageal reflux disease without esophagitis; E55.9 Vitamin D deficiency, unspecified; M54.41 Lumbago with sciatica, right side; M16.12 Unilateral primary osteoarthritis, left hip

== ENCOUNTER → 2024-06-11 17:08 | Outpatient (BNVA) | payer MEDICARE, MEDICAID, SELFPAY | PROVIDERS: PCP Internal Medicine; Visit Provider Internal Medicine | DX: I25.10 Atherosclerotic heart disease of native coronary artery without angina pectoris (principal); E78.2 Mixed hyperlipidemia; E11.40 Type 2 diabetes mellitus with diabetic neuropathy, unspecified; I12.9 Hypertensive chronic kidney disease with stage 1 through stage 4 chronic kidney disease, or unspecified chronic kidney disease; E11.22 Type 2 diabetes mellitus with diabetic chronic kidney disease; N18.32 Chronic kidney disease, stage 3b; G62.9 Polyneuropathy, unspecified; M1A.9XX0 Chronic gout, unspecified, without tophus (tophi); K21.9 Gastro-esophageal reflux disease without esophagitis; E55.9 Vitamin D deficiency, unspecified; M54.41 Lumbago with sciatica, right side; Z79.4 Long term (current) use of insulin | CPT/HCPCS: 96127; 99212 ==

== ENCOUNTER 2024-07-04 14:12 | Outpatient (AMB) | payer MEDICARE, MEDICAID, SELFPAY ==
--- NOTE | 2024-07-04 14:13 | HO.NEPHOV_ITS ---
Vital Signs 07/04/24 14:14 Height 5 ft 3 in Weight 213 lb 2 oz BMI 37.7 BP 120/70 Blood Pressure Location Lt brachial Position Sitting Pulse 70 Pulse Source Pulse Oximeter Pulse Oximetry (%) 92 Oxygen Delivery Method Room Air Intake Visit Reasons: INP: CKD-Conf w/daughter Drafter [employer] Required: No Accompanied by: Self / Same As Patient Allergies No Known Allergies Allergy (Verified 07/04/24 14:18) Do you need a note to return to daycare/school/sports/work: No HPI Comments Details: 63-year-old lady with past medical history of CKD stage 3, hypertension, diabetes, hyperlipidemia, CAD, gout is here to establish care. DM- since 5 years, A1c 6.9; insulin lantus 20U, 10 U prior to each meal occasionally misses HTN- since 5 years, has BP machine at home. CAD: /sp PCI 4 years ago, on aspirin and atorvastatin gout- on allopurinol; stopped ibuprofen 2 weeks PFSH Medical History Primary osteoarthritis of left hip Chronic kidney disease, stage III (moderate) Obesity (BMI 30-39.9) GERD without esophagitis Peripheral neuropathy Vitamin D deficiency Mixed hyperlipidemia Essential hypertension Diabetes mellitus Coronary artery disease Gout Myocardial infarction Surgical History History of coronary angioplasty with insertion of stent H/O removal of cyst Family History Mother No problems noted. Father Alzheimer disease Brother No problems noted. Daughter No problems noted. Son No problems noted. Son No problems noted. Social History Household Members: Other Housing: Apartment Alcohol intake: never Patient Tobacco Use Status: Former Tobacco user Tobacco use type: Cigarette e-Cigarette/Vaping Use: Former Use Second Hand Smoke Exposure: No Current occupational status: unemployed Cognitive needs: No Hearing needs: No Vision needs: Yes Review of Systems Const Details: Const Denies body aches, Denies chills, Denies excessive sweating and Denies fatigue Eyes Denies blurry vision and Denies change in vision ENT Denies bleeding gums and Denies change in voice Card Denies chest pain and Denies leg ulcers Resp Denies cough and Denies excessive phlegm production GI Denies abdominal pain and Denies bloating Denies hematuria, Denies urinary frequency and Denies difficulty voiding Musc Denies abnormal gait Neuro Denies Neuro-related abnormal movements, Denies abnormal gait and Denies behavioral changes Psych Denies behavioral changes and Denies change in appetite Endo Denies change in body appearance, Denies cold intolerance, Denies excessive sweating and Denies fatigue Physical Exam Vital Signs: BMI result Body Mass Index 37.7 General: Not in any acute distress, comfortable, sitting on the chair Nutritional Appearance: well nourished and overweight Eyes: appearance normal, both eyes and all related structures; Alignment and Position: alignment normal and position normal Neck: No lymphadenopathy, no thyromegaly Resp: bilateral air entry equal, no added sounds present Cardio: Regular rate, regular rhythm; Heart sounds: S1 normal heart sound present and S2 normal heart sound present, no edema GI: soft, nontender, no guarding, no hepatosplenomegaly : bladder normal to inspection, bladder normal to palpation, no renal angle tenderness Skin: no rashes or lesions noted and elasticity normal Neuro: oriented to person, oriented to place, oriented to time and moves all extremities Results Reviewed Nephrology Results: Hgb 12.8 g/dl (12.0-16.0) 06/07/24 WBC 9.7 X10*3/uL (4.8-10.8) 06/07/24 Plt Count 316 X10*3/uL (160-400) 06/07/24 Sodium 138 mmol/L (135-145) 06/07/24 Potassium 5.2 mmol/L (3.3-5.1) H 06/07/24 Chloride 106 mmol/L (96-108) 06/07/24 Carbon Dioxide 24 mmol/L (22-29) 06/07/24 BUN 30 mg/dL (9-16) H 06/07/24 Creatinine 1.88 mg/dL (0.5-1.4) H 06/07/24 Calcium 9.5 mg/dL (8.4-10.2) 06/07/24 Urine Protein 30 (1+) mg/dL (Neg-Trace) H 03/05/24 Urine Creatinine 96.52 mg/dL 03/05/24 Assessment & Plan Assessment & Plan (1) CKD (chronic kidney disease): Code(s): N18.9 - Chronic kidney disease, unspecified Category: Medical (2) Chronic kidney disease, stage III (moderate): Code(s): N18.30 - Chronic kidney disease, stage 3 unspecified Category: Medical Qualifiers: Chronic kidney disease stage 3 subtype: stage 3b (GFR 30-44) Qualified Code(s): N18.32 - Chronic kidney disease, stage 3b Plan Chronic kidney disease stage III/IV: - creatinine 1.83, 1.61 in 2022, 1.55 in 2024; GFR 27; possibly due to diabetic kidney disease and partly contributed due to NSAID that she took for over a year. - urine protein creatinine ratio: 202 mcg/mg in Feb 2024- will repeat - Urinalysis shows 0-2 RBC in 02/2024 possibly had a UTI then; - we will repeat - we will get ultrasound of the kidneys to look for the kidney sizes - avoid nephrotoxic medications not limited to NSAIDs, contrast etc. - Manjauro ordered by PCP started this Monday - importance of diet, weight loss, adequate blood pressure control, diet we will explained to patient - will start on Jardiance given her history of DM for renal protection; additionally loosing weight might help Electrolyte disorder: - we will get BMP Hypertension: - blood pressures are well controlled - target blood pressures less than 130 systolic - continue metorpolol; will hold off on VILMA/ARB due to hyperkalemia Anemia of chronic kidney disease: - we will get iron, TIBC, ferritin levels Mineral bone disease: - we will get calcium, phos, vitamin-D and PTH levels Orders: Orders Basic Metabolic Panel Today E55.9 - Vitamin D deficiency, unspecified, N18.9 - Chronic kidney disease, unspecified IRON PROFILE Today E55.9 - Vitamin D deficiency, unspecified, N18.9 - Chronic kidney disease, unspecified Phosphorus Today N18.32 - Chronic kidney disease, stage 3b, N18.9 - Chronic kidney disease, unspecified Total Protein Urine Random Today N18.32 - Chronic kidney disease, stage 3b, N18.9 - Chronic kidney disease, unspecified Creatinine Urine Today N18.32 - Chronic kidney disease, stage 3b, N18.9 - Chronic kidney disease, unspecified Microalbumin, Random (w Creat) Today N18.32 - Chronic kidney disease, stage 3b, N18.9 - Chronic kidney disease, unspecified US abdomen limited Today N18.32 - Chronic kidney disease, stage 3b, N18.9 - Chronic kidney disease, unspecified Vitamin D 25-OH Total Today E55.9 - Vitamin D deficiency, unspecified, N18.9 - Chronic kidney disease, unspecified Parathyroid Hormone Intact Today E55.9 - Vitamin D deficiency, unspecified, N18.9 - Chronic kidney disease, unspecified Calcium Today N18.32 - Chronic kidney disease, stage 3b, N18.9 - Chronic kidney disease, unspecified Hepatitis B,C Profile Today N18.9 - Chronic kidney disease, unspecified Medications: New empagliflozin 25 mg PO DAILY 30 tabs 2RF Coding Level of Care Code New Pt Level 4 (12700) Diagnoses CKD (chronic kidney disease) N18.9 Stage 3b chronic kidney disease N18.32 Chronic kidney disease stage 3 subtype: stage 3b (GFR 30-44)
[2024-07-04 14:14] VITALS: BP 120/70; PULSE 70; O2SAT 92; BMI 37.7
--- OUTSIDE RECORDS SUMMARY | 2024-07-04 14:20 | XMS_ITS | Clinical Summary ---
Author Organization [employer] Address [address] [place] [address] Care Team Providers Care Superintendent House Name Role Phone Unavailable Primary Care Provider [...] patient's age to complete this topic Meningococcal B Vaccine Aged Out No l onger eligible based on patient's age to complete this topic Meningococcal Vaccine Aged Out No ander esperanza eligible based on patient's age to complete this topic RSV under 20 months Aged Out No longe r eligible based on patient's age to complete this topic Rotavirus Vaccines Aged Out No longer eligible based on patient's age to complete this topic Insurance [facility] F[facility]
== END 2024-07-04 14:59 | disposition home or self-care (01) ==
LOC: HO.HKA 14:14
PROVIDERS: PCP Internal Medicine; Visit Provider Internal Medicine Critical Care Medicine
DX: N18.9 Chronic kidney disease, unspecified (principal); N18.32 Chronic kidney disease, stage 3b
CPT/HCPCS: 99204

== ENCOUNTER → 2024-07-04 14:12 | Outpatient (BNVA) | payer MEDICARE, MEDICAID, SELFPAY | PROVIDERS: PCP Internal Medicine; Visit Provider Internal Medicine Critical Care Medicine | DX: E11.22 Type 2 diabetes mellitus with diabetic chronic kidney disease (principal); N18.32 Chronic kidney disease, stage 3b; Z79.85 Long-term (current) use of injectable non-insulin antidiabetic drugs | CPT/HCPCS: 99202 ==

== ENCOUNTER 2024-08-21 13:45 | Outpatient (REF) | payer MEDICARE, MEDICAID, SELFPAY ==
--- NOTE | ~2024-08-21 | US_ITS ---
EXAMINATION: US KIDNEY BILATERAL HISTORY: N18.9 - Chronic kidney disease, unspecified TECHNIQUE: Real-time grayscale ultrasound imaging of the kidneys was performed and images were reviewed. COMPARISON: There are no prior studies available for comparison. FINDINGS: Right kidney: The right kidney measures 10.2 x 3.6 x 4.9 cm. Renal parenchymal echotexture and thickness are normal. There are no masses. There is no hydronephrosis or renal calculi. Left Kidney: The left kidney measures 9.4 x 3.6 x 4.9 cm. Renal parenchymal echotexture and thickness are normal. There are no masses. There is no hydronephrosis or renal calculi. US/US renal BI IMPRESSION: Unremarkable renal ultrasound. Electronically signed by: Mahesh Jiang MD 08/21/2024 02:34 PM EDT
--- OUTSIDE RECORDS SUMMARY | 2024-08-21 14:34 | XMS_ITS | Clinical Summary ---
Author Organization [employer] Address [address] [place] [address] Care Team Providers Care General Car Supervisor Yard Name Role Phone Unavailable Primary Care Provider [...] Vaccines (1 of 2) 2008 COVID-19 Vaccine ( - 2023-2 5 season) 2023 Influenza Vaccine (#1) 2024 RSV Patients and Pa tients Aged 60 [...] to complete this topic Insurance [facility] F[facility]
[2024-08-21 14:46] LABS: Parathyroid Hormone Intact 146.8 pg/mL (8.7-77.1)
[2024-08-21 14:51] LABS: Anion Gap 13 (12-20); Blood Urea Nitrogen 25 mg/dL (9-16); Calcium 9.5 mg/dL (8.4-10.2); Carbon Dioxide 23 mmol/L (22-29); Chloride 110 mmol/L (96-108); Estimated Glomerular Filt Rate 24; Iron 45 mcg/dL (30-160); Percent Iron Saturation 17 % (15-50); Potassium 4.2 mmol/L (3.3-5.1); Sodium 142 mmol/L (135-145); Total Iron Binding Capacity 269 mcg/dL (228-428); Unsaturated Iron Binding 224 ug/dL
[2024-08-21 15:29] LABS: Calcium 9.7 mg/dL (8.4-10.2)
[2024-08-21 17:35] LABS: Microalbum/Creatinine Ratio Ur 74.4 ug/mg cr (<30); Total Protein Urine Random 20 mg/dL (<12)
[2024-08-22 06:56] LABS: HBS Num1 0.36 mIU/mL (0-7.99); HBc Num1 0.04 S/CO (0.00-0.79); HBsAGNum1 0.34 S/CO (0.00-0.99); Hepatitis B Surface Antigen Negative (Negative); ~HepC Num1 0.12 S/CO (0.00-0.79); ~Hepatitis B Surface Antibody NONREACTIVE (Nonreactive); ~Hepatitis C Antibody Nonreactive (Nonreactive)
== END 2024-08-21 13:46 | disposition home or self-care (01) ==
LOC: HO.US 13:45
PROVIDERS: PCP Internal Medicine; Visit Provider Internal Medicine Critical Care Medicine
DX: N18.32 Chronic kidney disease, stage 3b (principal); E55.9 Vitamin D deficiency, unspecified; Z11.59 Encounter for screening for other viral diseases; Z72.89 Other problems related to lifestyle
CPT/HCPCS: 36415; 76775; 80048; 82043; 82306; 82310; 82570; 83540; 83970; 84100; 84156; 86704; 86706; 86803; 87340

== ENCOUNTER → 2024-08-21 14:07 | Outpatient (BNV) | payer MEDICARE, MEDICAID, SELFPAY | PROVIDERS: PCP Internal Medicine; Visit Provider Radiology Diagnostic Radiology | DX: N18.9 Chronic kidney disease, unspecified (principal) | CPT/HCPCS: 76775 ==

== ENCOUNTER 2024-09-16 08:47 | Outpatient (AMB) | payer MEDICARE, MEDICAID, SELFPAY ==
--- OUTSIDE RECORDS SUMMARY | 2024-09-16 09:06 | XMS_ITS | Clinical Summary ---
Author Organization [facility] Address [address] [place] [address] Phone Care Team Providers Care Safety Teacher Name Role Phone Nicholas Dunlap MD Primary Care Provider [phone] Allergies No known active allergies Medications aspirin 81 MG EC tablet Take 81 mg by mouth daily. Active insulin glargine (LANTUS) 100 unit/mL injection vial Inject 20 Units under the skin nightly at bedtime. Active insulin lispro (ADMELOG, HUMALOG) 100 unit/mL injection vial Inject 0-11 Units under the skin 3 (three) times a day before meals. Active acetaminophen (TYLENOL) 325 mg tablet Take 2 tablets (650 mg total) by mouth every 6 (six) hours as needed. 0 05/28/19 23 Active atorvastatin (LIPITOR) 80 MG tablet Take 1 tablet (80 mg total) by mouth nightly at bedtime. 90 tablet 05/28/19 23 Active clopidogrel (PLAVIX) 75 mg tablet Take 1 tablet (75 mg total) by mouth daily. 90 tablet 05/29/19 23 Active insulin aspart U-100 (NOVOLOG FLEXPEN U-100 INSULIN) 100 unit/mL (3 mL) injection pen INJECT 12 UNITS UNDER THE SKIN 3 TIMES A DAY BEFORE MEALS. 02/21/19 23 Active nitroglycerin (NITROSTAT) 0.4 MG SL tabletIndication s:Coronary artery disease involving [place] coronary artery of [place] heart without angina pectoris Place 1 tablet (0.4 mg total) under the tongue every 5 (five) minutes as needed for chest pain. 25 tablet 3 10/28/19 23 Active VITAMIN D3 25 mcg (1,000 unit) capsule Take by mouth daily. 10/08/19 23 Active famotidine (PEPCID) 20 MG tablet 01/13/20 23 Active gabapentin (NEURONTIN) 300 MG capsule take 1 capsule by mouth daily at bedtime 12/16/19 23 Active lidocaine (LIDODERM) 5 % 01/13/20 23 Active metoprolol tartrate (LOPRESSOR) 25 MG tabletIndication s:Hypertensive disorder TAKE 1 TABLET BY MOUTH TWICE A DAY 180 tablet 3 04/30/19 25 Active ranolazine (RANEXA) 500 MG 12 hr tablet Take 1 tablet (500 mg total) by mouth 2 (two) times a day. 180 tablet 3 05/22/19 25 026 Active MOUNJARO 2.5 mg/0.5 mL PnIj subcutaneous pen INJECT 2.5 MG (0.5 ML) SUBCUTANEOUSLY WEEKLY FOR 4 WEEKS 06/29/19 Active JARDIANCE 25 mg tablet Take 1 tablet by mouth every morning. 07/05/19 25 Active Active Problems Problem Noted Date Diagnosed Date Coronary artery disease invo lving emmonak coronary artery of [place] heart without angina pectoris 12/01/2022 Syncope 05/26/2022 Assessment & Plan (07/19/2024 1:22 PM EDT): Denies any further syncopal episodes. Assessment & Plan (05/26/2022 7:01 PM EDT): Will be monitored with cardiac telemetry. I will request a cardiac consult with her history of CAD and multiple prior stents. No ectopy reported by the ED. EKG shows a sinus bradycardia 58 bpm, nonspecific T wave inversion/flattening in the anterior leads, no other acute ST-T changes. Troponin elevated but flat . -Echocardiogram requested -Cardiology consult requested -Continue EKG monitoring -Orthostatic vital signs -Needs to be established with a local [employer] and PCP to resume her medications Cerebrovascular accident (CVA) 05/26/2022 Coronary artery disease 05/26/2022 Assessment & Plan (07/19/2024 1:21 PM EDT): She has a PCI to her LAD and RCA that was performed in 2019. She continues to be asymptomatic from a cardiovascular standpoint and is doing well. Will continue to optimize her cardiac risk factors. She is on aspirin 81 mg daily, clopidogrel 75 mg daily, Ranexa 500 mg twice daily, metoprolol 25 mg twice daily,Atorvastatin 80 mg daily. She will continue these without change. Her hemoglobin A1c has worsened a little bit from 6.1 now up to 7. She was recently started on Jardiance 10 mg daily. She does continue on her insulin and has started Mounjaro with some weight loss. She is encouraged follow heart healthy diet, low-sodium and to continue exercising and work on weight loss. Repeat lipid panel has been put in for next visit. LDL goal less than 55 mg/dL. SBP goal less than 130/80. Assessment & Plan (01/22/2024 3:05 PM EST): She had a PCI to LAD and RCA in 2019. She continued to have chest discomfort and underwent a stress test. After this she underwent another cardiac catheterization which showed minimal left main disease, stent was patent to the LAD otherwise mild disease. RCA with mild diffuse disease in the patent stent to the RCA. Circumflex artery was occluded, mid vessel in the AV groove after a large OM1. There were right to left collaterals and left to left collaterals filling the distal circumflex artery. She has been on Ranexa 500 mg twice daily and her metoprolol is now 25 mg twice daily. She has had to use nitroglycerin 1 time the week of since her last visit. Lipid panel has been ordered. SBP goal less than 130/80. LDL goal less than 70 mg/dL. She continues to have additional chest discomfort I will speak with Dr. Liu about how we should move forward with possible treating her chest discomfort. Her hemoglobin A1c appears to be elevated with her glucoses ranging 300 mg/dL. She is on insulin and has been taking her insulin right before she eats. Have asked her to move this insulin injection 15 minutes prior to her eating her first bite of food. Additionally she does report that she is not checking her blood pressures at home and they are quite elevated here in office and she has been consuming potato chips. She has also gained 20 pounds. She is strongly encouraged follow heart healthy diet including low-sodium and to start exercising. It is very important for her to start to lose weight. Assessment & Plan (05/29/2023 2:37 PM EDT): She has a history of PCI to LAD and RCA in 2019. She continued to have chest pain where she underwent a stress test. She then underwent another cardiac catheterization due to her abnormal stress test which showed minimal left main disease, patent stent to LAD otherwise mild disease, RCA with mild diffuse disease in the patient stent to the RCA. Circumflex artery was occluded mid vessel in the AV groove after a large OM1. There were right to left collaterals and left to left collaterals filling the distal circumflex artery. He was recommended to continue medical therapy with isosorbide however she was unable to tolerate this. Her medications was then changed to Ranexa 500 mg twice daily, isosorbide was discontinued and metoprolol was cut in half to 12.5 mg twice daily. Blood pressure is well-controlled today at 118/82. She reports she has had very few episodes of chest discomfort since starting her She has been doing well from a cardiovascular standpoint. Will continue to optimize her cardiac risk factors. She is on aspirin 81 mg daily, clopidogrel 75 mg daily, metoprolol 25 mg grams twice daily, Ranexa 500 mg twice daily Assessment & Plan (10/27/2022 12:24 PM EDT): She has a history of PCI to LAD and RCA in 2019. Prior to this, she was experiencing a lot of heartburn. She's been feeling this, but more mild, lately. Because of these symptoms, I ordered a nuclear stress test which showed There is a small in size but moderate intensity reversible defect at the inferolateral basal and mid segment. This may be consistent with ischemia in an obtuse marginal branch . Reviewed with Dr Liu. Will schedule for diagnostic cath at [facility]. I sent a prescription for nitroglycerin to be used PRN for her symptoms in the meantime. She knows to seek emergent medical attention should her symptoms acutely worsen before her cath. Assessment & Plan (09/27/2022 4:05 PM EDT): She has a history of PCI to LAD and RCA in 2019. Prior to this, she was experiencing a lot of heartburn. She's been feeling this, but more mild, lately. Will order a pharmacological nuclear stress test (she cannot walk on the treadmill) and see her in follow up thereafter. She will continue her medications at current doses otherwise. She had a normal echocardiogram during her hospitalization in May. She also had an unremarkable event monitor after the admission. Assessment & Plan (05/26/2022 7:04 PM EDT): As above, prior NV x2, last 4 years ago at which time she had multiple stents placed. Prior [employer] in [place]. No recent episodes of chest pain or exertional symptoms. Diabetes mellitus 05/26/2022 Assessment & Plan (01/22/2024 3:05 PM EST): I have asked her to follow-up with her PCP for further management of her diabetes. I did order hemoglobin A1c for monitoring. Assessment & Plan (05/26/2022 7:05 PM EDT): Chronic insulin use. At home uses Lantus 20 units at bedtime, Humalog 11 units with meals if sugars are high prior to meals. -Dosed conservatively here with Lantus 10 units nightly -Insulin sliding scale with meals and nightly with [id number] glucose monitoring 4 times daily -Constant carbohydrate diet Gout 05/26/2022 Assessment & Plan (05/26/2022 7:05 PM EDT): Tylenol available for mild pain. No NSAIDs with additional antiplatelet agents. Hyperlipidemia 05/26/2022 Assessment & Plan (07/19/2024 1:22 PM EDT): Continue atorvastatin 80 mg daily. Assessment & Plan (05/29/2023 2:38 PM EDT): Continue atorvastatin 80 mg daily. Lipid panels been ordered prior to her next visit. Most recent lipid panel that was drawn On 05/26/2023 shows triglycerides 179, LDL 75, HDL 37, cholesterol 148. Assessment & Plan (05/26/2022 7:05 PM EDT): Atorvastatin restarted. Lipid panel pending for the morning. Hypertensive disorder 05/26/2022 Assessment & Plan (07/19/2024 1:20 PM EDT): Blood pressure is well-controlled today 110/64. She is on metoprolol 25 mg twice daily which she will continue without change. Assessment & Plan (01/22/2024 3:05 PM EST): Father has a very elevated today at 160/80. I have asked her to cut out the salt in her diet and continue monitoring blood pressures at home with an SBP goal less than 130/80. If blood pressures continue to be elevated have asked her to reach out to the portal or to call us and let us know that blood pressures continue to be elevated we will adjust her medications as necessary. Assessment & Plan (05/29/2023 2:37 PM EDT): Blood pressure is well-controlled today 118/82 she will continue current medication regimen without any change. Assessment & Plan (09/27/2022 4:05 PM EDT): Her BP in office today is 130/76. She will continue metoprolol. Assessment & Plan (05/26/2022 7:06 PM EDT): Permissive hypertension recommended during her stroke evaluation. Metoprolol held tonight. Await further cardiology and neurology recommendations. CVA (cerebral vascular accident) 05/26/2022 Assessment & Plan (05/26/2022 7:03 PM EDT): Of prior CVA x2, last in 10/2020. Chronic speech deficits. She was on aspirin, Plavix and atorvastatin until 2 months ago when she ran out of medications and did not have a PCP to refill them. Presented after syncopal episode with persistent left leg numbness after resuming consciousness. Difficulty walking. Symptoms fully resolved by the time of admission. Cristina haider called in the emergency department. CT/CTA of the head showed her chronic deficits as described below and neurology consult. Case discussed with [facility] acute stroke team. Note reviewed with recommendations as follows: Asked the ED to have the patient walk to ensure the left leg drift giving her NIHSS =1 is not a disabling deficit. The patient was able to walk independently without assistance or issues. Therefore, would not recommend IV TPA for a NIHSS of 1 -No LVO on my review including in the ACAs, f/u final rads read of CTA -CTH shows chronic R cerebellar infarct, chronic R internal capsule infarcts -Orthostatic vitals, BP, basic labs for etiology of syncope -ASA 81 + Plavix 300 mg now, followed by ASA 81 and Plavix 75 daily x 21 days, then drop to ASA 81 daily -Unless you confirm she was supposed to be on anticoagulation (pt was not sure, though says no h/o afib) in which case resuming anticoagulation and no need for antiplatelets -Atorvastatin 80mg, check LDL, ,A1c, CRP, ESR -MRI brain if confirms infarct would do stroke workup -TTE, telemetry, 30 day heart monitor at [place] and neuro follow up Encounters Date Type Department Care Team Description 07/19/2024 3:30 PM EDT Office Visit [facility] [address], [address] [place] [address] Radha Hay DNP Hyperlipidemia, unspecified hyperlipidemia type (Primary Dx) 07/16/2024 3:01 PM EDT - 07/16/2024 11:59 PM EDT Hospital Encounter [facility] [address] [place] [address] Radha Hay DNP Discharge Disposition: Home or Self Care from Last 3 Months Immunizations Immunization Administration Dates Next Due Influenza Quadrivalent Preservative Free IM 05/14 Family History Medical History Relation Comments Heart disease Father Diabetes Mother Relation Status Comments Father Mother Social History Tobacco Use Types Packs/Day Years Used Date Smoking Tobacco: Former Cigarettes Smokeless Tobacco: Current Tobacco Cessation:Ready to Q uit: Not Asked; Counseling Given: Not Answered Comments:Daily vaping Alcohol Use Standard Drinks/Week Comments Not Currently 0 (1 standard drink = 0.6 oz pur e alcohol) Education Answer Date Recorded Are you interested in more education? Not on sj e 06/11/2022 Are you concerned about learning? Not on file 06/11/2022 No 06/11/2022 No 06/11/2022 Digital Access Answer Date Recorded No 07/08/2022 No 07/08/2022 Reliable internet access at home? Not on file 07/08/2022 Device with a working camera? Not on file Intimate Partner Violence Answer Date R ecorded Are you denied basic needs s uch as food, clothing, or medical care? No 12/01/2022 In the past 12 months have y ou been in a relationship with a person who hurts, threatens, or tries to control you? No 12/01/2022 Are you denied basic needs s uch as food, clothing, or medical care? No 12/01/2022 In the past 12 months have y ou been in a relationship with a person who hurts, threatens, or tries to control you? No 12/01/2022 Comments No Sex and Gender Information Value Date Recorded Sex Assigned at Not on file Legal Sex Female 1:39 PM EDT Gender Identity Not on file Sexual Orientation Not on file Occupation Industry Job Start Date Job End Date Used to work in a [employer], now retired Not on file Not on file Not on file Last Filed Vital Signs Vital Sign Reading Time Taken Comments Blood Pressure 110/64 07/19/2024 12:50 PM EDT Pulse 70 07/19/2024 12:50 PM EDT Temperature 36.4 C (97.5 F) 12/01/2022 12:30 PM EDT Respiratory Rate 10 12/01/2022 1:45 PM EDT Oxygen Saturation 97% 07/19/2024 12:50 PM EDT Inhaled Oxygen Concentration - - Weight 94.8 kg (209 lb) 07/19/2024 12:50 PM EDT Height 157.5 cm (5' 2.01 ) 07/19/2024 12:50 PM E DT Body Mass Index 38.22 07/19/2024 12:50 PM EDT Plan of Treatment Upcoming Encounters Date Type Department Care Team (Late st Contact Info) Description 01/17/2025 3:30 PM EST Office Visit [facility] [address], [address] [place] [address] Radha Hay, [facility] [address], [address] [place] [id number] [email or web address] Health Maintenance Due Date Last Done Comments DEPRESSION SCREENING 1970 SMOKING Hx and SMOKELESS TOBACCO SCREENING 11/19/1971 HEPATITIS C SCREENING 1976 HIV ONE-TIME SCREENING (18-65 YEARS) 1976 PNEUMOCOCCAL VACCINES (50+ years) (1 of 2 - PCV) 1977 MAMMOGRAM 1998 COLOGUARD 11/19/2003 COLONOSCOPY 11/19/2003 COLORECTAL CANCER SCREENING 11/19/2003 FIT TEST 11/19/2003 FOBT 11/19/2003 SIGMOIDOSCOPY 11/19/2003 VIRTUAL COLONOSCOPY 11/19/2003 ZOSTER VACCINES (1 of 2) 2008 RSV VACCINE (1 - Risk 60-74 years 1-dose series) 2018 DIABETIC EYE EXAM 05/26/2022 URINE MICROALBUMIN/CREATININE RATIO 05/26/2022 04/14/2021 COVID-19 VACCINE ( - season) 2023 OSTEOPOROSIS SCREENING INITIAL (ONE-TIME) 11/19/2023 HEMOGLOBIN A1C 01/15/2025 07/16/2024, 11, 05/27/2022, Additional history exists BLOOD PRESSURE 01/18/2025 07/19/2024 Adult Td,Tdap Booster 03/11/2031 03/11/2021 HEPATITIS A VACCINES Aged Out No long er eligible based on patient's age to complete this topic HIB VACCINES Aged Out No longer eligi ble based on patient's age to complete this topic MENINGOCOCCAL VACCINES (ACWY) Aged Out No longer eligible based on patient's age to complete this topic MENINGOCOCCAL VACCINES (B) Aged Out N o longer eligible based on patient's age to complete this topic Medical Devices Not on file Procedures Procedure Name Priority Date/Time Associated Diagnosis Comments LIPID PANEL Routine 07/16/2024 3:16 PM EDT Hyperlipidemia, unspecified hyperlipidemia type HEMOGLOBIN A1C Routine 07/16/2024 3:16 PM EDT Type 2 diabetes mellitus with hyperglycemia, with long-term current use of insulin from Last 3 Months Results * (ABNORMAL) Hemoglobin A1c (07/16/2024 3:16 PM EDT) HEMOGLOBIN A1C 7.0(H) 4.3 - 5.8 % [facility] Blood 07/16/2024 3:16 PM EDT 07/16/2024 3:20 PM EDT Radha Hay [facility] BLOOD ORDERABLES Final Result Performing Organization Address [facility]/ZIP Co de Phone Number [address] [address] * (ABNORMAL) Lipid panel (07/16/2024 3:16 PM EDT) HDL 40 mg/dL [facility] Comment: Interpretation <40 mg/dL: Low HDL cholesterol (major risk factor for CHD) Greater than or equal to 60 mg/dL: High HDL cholesterol ( negative risk factor for CHD) HDL - cholesterol is affected by a number of factors, e.g. smoking, excerise, hormones, sex and age. CHOLESTEROL 164 0 - 240 mg/dL [facility] TRIGLYCERIDES 211(H) 30 - 160 mg/dL [facility] LDL 82 50 - 129 mg/dL [facility] Comment: LDL levels in terms of risk for coronary heart disease: <100 mg/dL: Optimal 100-129 mg/dL: Near or above optimal 130-159 mg/dL: Borderline high 160-189 mg/dL: High >190 mg/dL: Very High CARDIAC RISK RATIO 4.1 3.3 - 4.4 C [facility] Blood 07/16/2024 3:16 PM EDT 07/16/2024 3:20 PM EDT Radha Hay [facility] BLOOD ORDERABLES Final Result Performing Organization Address City/[facility]/ZIP Co de Phone Number [address] [phone] from Last 3 Months Insurance [facility] & B [facility] PART A & B B MEDICARE [facility] A & B B MEDICARE [facility] A & B [facility] PART A & B [facility] PART A & B Advance Directives For more information, please contact: [phone] (9AM - 5PM [facility], Monday-Monday) * Full Code (Latest Code Status on File) Date Activated Date Inactivated Comments 05/26/2022 6:57 PM Question Answer Comments Code Status Confirmed With: Patient Care Teams Safety Teacher Relationship Specialty Start Date End Date Nicholas Dunlap MD [address] [place] [address] [place] [address] PCP - General Internal Medicine 11/22/23 Additional Source Comments The information contained in this document represents components of the legal health record. It is not the complete legal health record.[facility]
--- OUTSIDE RECORDS SUMMARY | 2024-09-16 09:06 | XMS_ITS | Clinical Summary ---
Author Organization [employer] Address [address] [place] [address] Care Team Providers Care Plywood Patcher Name Role Phone Unavailable Primary Care Provider [...] to complete this topic Insurance [facility]
--- NOTE | 2024-09-16 09:27 | HO.NEPHOV ---
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 DM- since 5 years, A1c 6.9; insulin lantus 20U, 10 U prior to each meal occasionally misses HTN- since 5 years, has BP machine at home. CAD: /sp PCI 4 years ago, on aspirin and atorvastatin gout- on allopurinol; stopped ibuprofen 2 weeks [facility] Medical History Primary osteoarthritis of left hip Chronic kidney disease, stage III (moderate) Obesity (BMI 30-39.9) GERD without esophagitis Peripheral neuropathy Vitamin D deficiency Mixed hyperlipidemia Essential hypertension Diabetes mellitus Coronary artery disease Gout Myocardial infarction Surgical History History of coronary angioplasty with insertion of stent H/O removal of cyst Family History Mother No problems noted. Father Alzheimer disease Brother No problems noted. Daughter No problems noted. Son No problems noted. Son No problems noted. Social History Household Members: Other Housing: Apartment Alcohol intake: never Patient Tobacco Use Status: Former Tobacco user Tobacco use type: Cigarette e-Cigarette/Vaping Use: Former Use Second Hand Smoke Exposure: No Current occupational status: unemployed Cognitive needs: No Hearing needs: No Vision needs: Yes Physical Exam Vital Signs: Last Vital Signs Pulse 75 09/16/24 09:28 BP 130/80 09/16/24 09:28 Pulse Ox 95 09/16/24 09:28 Oxygen Delivery Method Room Air 09/16/24 09:28 BMI result Body Mass Index 36.4 Results Reviewed Nephrology Results: Hgb, (12.0-16.0) 12.8 g/dl 06/07/24 WBC, (4.8-10.8) 9.7 X10*3/uL 06/07/24 Plt Count, (160-400) 316 X10*3/uL 06/07/24 Sodium, (135-145) 142 mmol/L 08/21/24 Potassium, (3.3-5.1) 4.2 mmol/L 08/21/24 Chloride, (96-108) 110 mmol/L H 08/21/24 Carbon Dioxide, (22-29) 23 mmol/L 08/21/24 BUN, (9-16) 25 mg/dL H 08/21/24 Creatinine, (0.5-1.4) 2.06 mg/dL H 08/21/24 Calcium, (8.4-10.2) 9.7 mg/dL 08/21/24 Phosphorus, (2.7-4.5) 2.8 mg/dL 08/21/24 PTH Intact, (8.7-77.1) 146.8 pg/mL H 08/21/24 Urine Protein, (Neg-Trace) 30 (1+) mg/dL H 03/05/24 Urine Creatinine 143.65 mg/dL 08/21/24 Renal US 08/21/24 Assessment & Plan Assessment & Plan (1) Type 2 diabetes mellitus: Comment: dx 2018 Code(s): E11.9 - Type 2 diabetes mellitus without complications Category: Medical (2) Right-sided low back pain with sciatica: Code(s): M54.41 - Lumbago with sciatica, right side Category: Medical Qualifiers: Chronicity: unspecified Sciatica laterality: sciatica of right side Qualified Code(s): M54.41 - Lumbago with sciatica, right side (3) Chronic kidney disease, stage III (moderate): Code(s): N18.30 - Chronic kidney disease, stage 3 unspecified Category: Medical Qualifiers: Chronic kidney disease stage 3 subtype: stage 3b (GFR 30-44) Qualified Code(s): N18.32 - Chronic kidney disease, stage 3b Plan Chronic kidney disease stage III/IV: - creatinine 1.83, 1.61 in 2022, 1.55 in 2024; GFR 27; creatinine increased to 2.06 GFR 24 in August. - possibly due to diabetic kidney disease and partly contributed due to NSAID that she took for over a year. Since the creatinine increased while proteinuria decreased during the last visit we will repeat labs and do more workup. If the next creatinine further increases will do a renal biopsy. Explained this plan to the patient and she agrees. - urine protein creatinine ratio: 202 mcg/mg in Feb 2024- decreased to 74.4 - Urinalysis shows 0-2 RBC in 02/2024 possibly had a UTI then; - we will repeat - ultrasound of the kidneys showed normal kidneys 10.2 cms right, 9.4 cms left kidney - avoid nephrotoxic medications not limited to NSAIDs, contrast etc. - Manjauro for weight loss - importance of diet, weight loss, adequate blood pressure control, diet we will explained to patient - continue Jardiance given her history of DM for renal protection; additionally loosing weight might help Hypertension: - blood pressures are well controlled - target blood pressures less than 130 systolic - continue metorpolol; will hold off on VILMA/ARB due to hyperkalemia and worsening renal function. Anemia of chronic kidney disease: - normal iron, TIBC, ferritin levels Mineral bone disease: - normal calcium, low vitamin-D and high PTH levels - asked the patient to double vitamin D supplement back pain: - patient has low back pain and numbness, pain in lower extremity with difficulty in walking - will increase dose of gabapentin and refer her to pain management. Orders: Orders HIV Ab/Ag Today E11.9 - Type 2 diabetes mellitus without complications, M54.41 - Lumbago with sciatica, right side, N18.32 - Chronic kidney disease, stage 3b ANCA Vasculitides Today E11.9 - Type 2 diabetes mellitus without complications, M54.41 - Lumbago with sciatica, right side, N18.32 - Chronic kidney disease, stage 3b Complement C4 Today E11.9 - Type 2 diabetes mellitus without complications, M54.41 - Lumbago with sciatica, right side, N18.32 - Chronic kidney disease, stage 3b Complement C3 Today E11.9 - Type 2 diabetes mellitus without complications, M54.41 - Lumbago with sciatica, right side, N18.32 - Chronic kidney disease, stage 3b Protein Electrophoresis, Serum Today E11.9 - Type 2 diabetes mellitus without complications, M54.41 - Lumbago with sciatica, right side, N18.32 - Chronic kidney disease, stage 3b Microalbumin, Random (w Creat) Today E11.9 - Type 2 diabetes mellitus without complications, M54.41 - Lumbago with sciatica, right side, N18.32 - Chronic kidney disease, stage 3b UA and rflx microscopic Today E11.9 - Type 2 diabetes mellitus without complications, M54.41 - Lumbago with sciatica, right side, N18.32 - Chronic kidney disease, stage 3b Uric Acid Today N18.32 - Chronic kidney disease, stage 3b SUKUMAR Reflex Titer and Pattern Today E11.9 - Type 2 diabetes mellitus without complications, M54.41 - Lumbago with sciatica, right side, N18.32 - Chronic kidney disease, stage 3b [employer] Serum Today E11.9 - Type 2 diabetes mellitus without complications, M54.41 - Lumbago with sciatica, right side, N18.32 - Chronic kidney disease, stage 3b Basic Metabolic Panel Today E11.9 - Type 2 diabetes mellitus without complications, M54.41 - Lumbago with sciatica, right side, N18.32 - Chronic kidney disease, stage 3b Total Protein Urine Random Today E11.9 - Type 2 diabetes mellitus without complications, M54.41 - Lumbago with sciatica, right side, N18.32 - Chronic kidney disease, stage 3b Referrals Pain Management Referral M54.9 - Dorsalgia, unspecified Coding Level of Care Code Est Pt Level 4 (38356) Diagnoses Type 2 diabetes mellitus E11.9 Right-sided low back pain with right-sided sciatica, unspecified chronicity M54.41 Chronicity: unspecified Sciatica laterality: sciatica of right side Stage 3b chronic kidney disease N18.32 Chronic kidney disease stage 3 subtype: stage 3b (GFR 30-44)
[2024-09-16 09:28] VITALS: BP 130/80; PULSE 75; O2SAT 95; BMI 36.4
== END 2024-09-16 10:07 | disposition home or self-care (01) ==
LOC: HO.HKAS 08:47
PROVIDERS: PCP Internal Medicine; Visit Provider Internal Medicine Critical Care Medicine
DX: E11.9 Type 2 diabetes mellitus without complications (principal); M54.41 Lumbago with sciatica, right side; N18.32 Chronic kidney disease, stage 3b
CPT/HCPCS: 99214

== ENCOUNTER 2024-09-16 08:47 | Outpatient (REF) | payer MEDICARE, MEDICAID, SELFPAY ==
[2024-09-16 13:02] LABS: Appearance Urine Clear; Glucose Urine UA >=1000 mg/dL (Negative); PH 5.5 (5.0-9.0); Specific Gravity - Urine 1.020 (1.005-1.025); UMIC TRIGGER UA YES
[2024-09-16 13:56] LABS: Anion Gap 15 (12-20); Blood Urea Nitrogen 27 mg/dL (9-16); Calcium 10.2 mg/dL (8.4-10.2); Carbon Dioxide 25 mmol/L (22-29); Chloride 109 mmol/L (96-108); Estimated Glomerular Filt Rate 29; Iron 36 mcg/dL (30-160); Percent Iron Saturation 14 % (15-50); Potassium 4.5 mmol/L (3.3-5.1); Sodium 144 mmol/L (135-145); Total Iron Binding Capacity 252 mcg/dL (228-428); Unsaturated Iron Binding 216 ug/dL; Uric Acid 7.1 mg/dL (2.4-5.7)
[2024-09-16 14:40] LABS: Microalbum/Creatinine Ratio Ur 76.5 ug/mg cr (<30); Total Protein Urine Random 16 mg/dL (<12)
[2024-09-17 08:19] LABS: HIV Num 1 0.07 S/CO (0.00-0.99)
[2024-09-17 21:58] LABS: Prot Elec - Albumin 4.2 g/dL (3.8-4.8); Prot Elec - Alpha1 0.4 g/dL (0.2-0.3); Prot Elec - Alpha2 0.8 g/dL (0.5-0.9); Prot Elec - Beta 1 0.5 g/dL (0.4-0.6); Prot Elec - Beta 2 0.5 g/dL (0.2-0.5); Prot Elec - Gamma 0.9 g/dL (0.8-1.7); Prot Elec - Total Protein 7.3 g/dL (6.1-8.1)
[2024-09-17 23:38] LABS: Proteinase 3 PR3 Antibodies <1.0 AI
[2024-09-20 00:24] LABS: Kappa, Serum 242 mg/dL (176-443); Kappa/Lambda Ratio, Serum 1.85 (1.29-2.55); Lambda, Serum 131 mg/dL (91-240)
[2024-09-23 11:18] LABS: Anti Nuclear Antibody Pattern Nuclear, Homogeneous; Anti Nuclear Antibody Screen POSITIVE (NEGATIVE); Anti Nuclear Antibody Titer 1:320 titer
== END 2024-09-16 08:48 | disposition home or self-care (01) ==
LOC: HO.HKASLDS 08:47
PROVIDERS: PCP Internal Medicine; Visit Provider Internal Medicine Critical Care Medicine
DX: Z11.4 Encounter for screening for human immunodeficiency virus [HIV] (principal); E11.22 Type 2 diabetes mellitus with diabetic chronic kidney disease; N18.32 Chronic kidney disease, stage 3b; D63.1 Anemia in chronic kidney disease; I12.9 Hypertensive chronic kidney disease with stage 1 through stage 4 chronic kidney disease, or unspecified chronic kidney disease; M54.41 Lumbago with sciatica, right side; I25.10 Atherosclerotic heart disease of native coronary artery without angina pectoris; E83.9 Disorder of mineral metabolism, unspecified; M85.9 Disorder of bone density and structure, unspecified; Z79.4 Long term (current) use of insulin; Z79.82 Long term (current) use of aspirin; Z79.899 Other long term (current) drug therapy; Z87.891 Personal history of nicotine dependence; Z95.5 Presence of coronary angioplasty implant and graft; Z01.84 Encounter for antibody response examination
CPT/HCPCS: 36415; 80048; 81001; 81003; 82043; 82306; 82570; 83540; 83883; 84100; 84156; 84165; 84550; 86021; 86038; 86039; 86160; 87389; 99212

== ENCOUNTER 2024-09-30 16:05 | Outpatient (AMB) | payer MEDICARE, MEDICAID, SELFPAY ==
--- NOTE | 2024-09-30 16:07 | AM.OFFVISMDC ---
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 Required: No Accompanied by: Self / Same As Patient Allergies No Known Allergies Allergy (Verified 09/30/24 16:45) Medication List - Last Reconciled 09/30/24 by Nicholas Dunlap MD allopurinol 100 mg PO DAILY 30 days aspirin 81 mg PO DAILY atorvastatin 80 mg PO BEDTIME blood sugar diagnostic (FreeStyle Test strips) Test 3X per day blood-glucose meter (FreeStyle Matthews kit) As directed cholecalciferol (vitamin D3) (Vitamin D3) 25 mcg PO DAILY clopidogrel 75 mg PO DAILY empagliflozin (Jardiance) 25 mg PO DAILY famotidine (Pepcid) 20 mg PO DAILY gabapentin 300 mg PO TID 30 days insulin glargine (Lantus Solostar U-100 Insulin) 20 units (0.2 mL) subcut QPM insulin lispro (Humalog KwikPen (U-100) Insulin) 10 units (0.1 mL) subcut TID lancets (FreeStyle Lancets) As directed- four times a day Lantus Solostar U-100 Insulin (insulin glargine) 20 units (0.2 mL) subcut QAM NS lidocaine 5% (Lidoderm) 1 patch topical DAILY PRN metoprolol tartrate 12.5 mg PO BID pregabalin 150 mg PO BEDTIME tirzepatide (Mounjaro) 2.5 mg (0.5 mL) subcut QWEEK 4 weeks Do you need a note to return to daycare/school/sports/work: No HPI AWV HPI Details Patient comes in today for her annual Medicare wellness exam and follow-up visit States that she currently feels okay She denies any headaches or dizziness Denies any chest pains, no increased shortness of breath No nausea/vomiting, no abdominal pain No change in bowel habits noted She had some follow-up labs done a couple of weeks ago but these for nonfasting so they did not include a fasting lipid profile She is also scheduled for kidney biopsy in a couple of weeks - recent workups done revealed an elevated myeloperoxidase antibody level that raises suspicion for ANCA related vasculitis that is affecting her renal function Patient is also requesting for a referral to see Cardiology here at [facility] for follow-up States that she used to see Cardiology at [facility] but would like to switch over so all of her records can be in one place Patient states that it has been years now since she last had her gynecology exam and Pap smear States that she has never had a mammogram or screening colonoscopy done by choice and also has never had a bone density test done in the past Kashia of care was reviewed and updated today Patient does not have a healthcare proxy on file; they were provided with both an HCP and a MOLST form and instructed to complete these as soon as possible IPPE/AWV: c/o of Annual Wellness Visit, initial visit. Medical / Social History Reviewed Past Medical History Yes . Kashia of Care / Care Team list updated Yes . Surgical/Hospitalization History Yes . Current Medications (including OTC and supplements) Yes . Family History Yes . Tobacco Control form Yes . AUDIT-C (Alcohol use) form Yes . Illicit drug use in Social History Yes . Current diagnosis of depression? No Appropriate PHQ2/PHQ9 completed Yes . Data entered by Nutrition Aides Teacher and reviewed by provider Home Safety Throw rugs? No Grab bars? No Raised toilet seats? No Working smoke detectors? Yes Working carbon monoxide detectors? Yes Data entered by Nutrition Aides Teacher and reviewed by provider Activities of Daily Living (ADLs) Difficulty bathing or showering? Yes Difficulty dressing? No Difficulty using the toilet? No Difficulty getting in and out of bed? No Difficulty walking? No Receives help from another person with any of the above tasks? Yes Instrumental Activities of Daily Living (IADLs) Uses the telephone without help Gets to places out of walking distance with help Goes shopping for groceries with help Prepares own meals with help Does own minor home maintenance with help Does own laundry with help Does own housework with help Manages own money with help Currently takes medications? Yes Takes medication with help End-of-Life Planning Discussed advance directive Yes Advance directive not on file Discussed wishes expressed in advance directive agreed to following patient's wishes Fall Risk: Fall History Have you had any falls with injury in the past year? Yes . Have you had two or more falls in the past year? No . Fall Risk Assessment: 1 fall in the past year . HRA filled out by the patient, reviewed by Provider and scanned. [facility] Medical History Primary osteoarthritis of left hip Chronic kidney disease, stage III (moderate) Obesity (BMI 30-39.9) GERD without esophagitis Peripheral neuropathy Vitamin D deficiency Mixed hyperlipidemia Essential hypertension Diabetes mellitus Coronary artery disease Gout Myocardial infarction Surgical History History of coronary angioplasty with insertion of stent H/O removal of cyst Family History Mother No problems noted. Father Alzheimer disease Brother No problems noted. Daughter No problems noted. Son No problems noted. Son No problems noted. Social History Household Members: Other Housing: Apartment Alcohol intake: never Patient Tobacco Use Status: Former Tobacco user Tobacco use type: Cigarette e-Cigarette/Vaping Use: Former Use Second Hand Smoke Exposure: No Current occupational status: unemployed Cognitive needs: No Hearing needs: No Vision needs: Yes Questionnaire Medicare Wellness Checkup [age] What gender do you identify with?: female During the past 4 weeks, how much have you been bothered by emotional problems such as feeling anxious, depressed, irritable, sad or downhearted, and blue?: not at all During the past 4 weeks, has your physical & emotional health limited your social activities with family, friends, neighbors, or groups?: not at all During the past 4 weeks, how much bodily pain have you generally had?: severe pain During the past 4 weeks, was someone available to help you if you needed & wanted help?: yes, as much as I wanted During the past 4 weeks, what was the hardest physical activity you could do for at least 2 minutes?: light Can you get to places out of walking distance without help? (For eg., can you travel alone on buses, taxis or drive your car?): No Can you go shopping for groceries or clothes without someone's help?: No Can you prepare your own meals?: No Can you do your housework without help?: No Because of any health problems, do you need the help of another person with your personal care needs such as eating, bathing, dressing or getting around the house?: Yes Can you handle your own money without help?: No During the past 4 weeks, how would you rate your health in general?: poor During the past 4 weeks how have things been going for you?: pretty bad Are you having difficulties driving your car?: not applicable, I don't use a car Do you always fasten your seat belt when you are in a car?: yes, usually During past 4 weeks, have you been bothered by the following: never: Sexual problems?, Teeth or denture problems? and Problems using the telephone?, sometimes: Falling or dizzy when standing up and Trouble eating well? and always: Tiredness or fatigue? Have you fallen 2 or more times in the past year?: Yes Are you afraid of falling?: Yes Are you a smoker?: no During the past 4 weeks, how many drinks of wine, beer, or other alcoholic beverages did you have?: no alcohol at all Do you exercise for about 20 minutes 3 or more times a week?: yes, some of the time Have you been given information to help with the following?: yes: Hazards in your house that might hurt you? and yes: Keeping track of your medications? How often do you have trouble taking medicines the way you have been told to take them?: I always take medicine as prescribed How confident are you that you can control & manage most of your health problems?: somewhat confident What is your race?: or origin or descent Mini Mental State Exam (MMSE) Orientation What is the (year) (season) (date) (day) (month)?: year, season, date, day and month Where are we (state) (county) (town or city) (hospital) (floor)?: state, county, town or city, hospital/clinic and floor Score Score: 10 Activity of Daily Living Bathing - sponge bath, tub bath or shower: receives help in bathing only one body part (such as back or leg) Dressing - getting clothes from closets & drawers, including inner/outer garments & fasteners.: gets clothes & gets completely dressed without help Toileting - going to the 'toilet room' for urine/bowel elimination & cleaning self/arranging clothes: goes to toilet room, cleans self, arranges clothes without help Transfer: moves in & out of bed and chair without help (may use support object) Continence: has occasional 'accidents' Feeding: feeds self without help Total Score: 0 Information obtained from: patient Using telephone: independent Traveling: dependent Shopping: dependent Preparing meals: dependent Housework: dependent Taking medicine: needs assistance Managing money: needs assistance PHQ-9 Over the last 2 weeks, how often have you been bothered by any of the following problems? 1. Little interest or pleasure in doing things: not at all 2. Feeling down, depressed, or hopeless: not at all 3. Trouble falling or staying asleep, or sleeping too much: more than half the days 4. Feeling tired or having little energy: several days 5. Poor appetite or overeating: not at all 6. Feeling bad about yourself - or that you are a failure or have let yourself or your family down: not at all 7. Trouble concentrating on things, such as reading the newspaper or watching television: not at all 8. Moving or speaking so slowly that other people could have noticed. Or the opposite - being so fidgety or restless that you have been moving around a lot more than usual: not at all 9. Thoughts that you would be better off or of hurting yourself in some way: not at all Total score: 3 Depression Screening Interpretation: Negative Depression Screening Done: Yes 40123 - PHQ-9 Billing: Yes Source: Developed by Drs. Mahesh Calvillo, Shyanne Carrillo, Patrice Lee and colleagues, with an educational efe from [employer]. Review of Systems Const Denies chills, Reports fatigue, Denies fever(s) and Denies headache(s) ENT Denies dysphagia, Denies dizziness, Denies otalgia, Denies headache(s), Denies neck pain, Denies odynophagia and Denies sore throat Card Denies chest pain, Denies palpitations and Denies dyspnea Resp Denies chest congestion, Denies cough and Denies dyspnea GI Denies abdominal pain, Denies constipation, Denies dysphagia, Denies heartburn, Denies diarrhea, Denies nausea, Denies odynophagia and Denies vomiting Denies difficulty voiding, Denies nocturia, Denies dysuria and Denies urinary urgency Musc Reports back pain (over the right lower back, on and off), Reports arthralgias (in the left hip) and Denies neck pain Skin/Breast Denies rash Neuro Denies dizziness and Denies headache(s) Endo Reports fatigue and Denies palpitations Physical Exam Exam Exam: IPPE/AWV: Balance Romberg Yes . Tandem walk Yes . Walk and Turn Yes . Rise from sit to stand Yes . Vision Corrective lens No Vision screen pass Hearing Whisper test pass . Urinary incont. no. EKG Not clinically necessary. Vital Signs: Last Vital Signs Pulse 68 09/30/24 16:08 BP 118/78 09/30/24 16:08 Pulse Ox 97 09/30/24 16:08 Oxygen Delivery Method Room Air 09/30/24 16:08 BMI result Body Mass Index 35.7 Const General: no acute distress and alert Orientation/consciousness: patient oriented x3 HEENT Ears: TM's normal bilaterally and EAC's normal Throat: Yes posterior oropharynx normal and Yes tonsils normal (no TP congestion) Neck Neck: Yes supple and No lymphadenopathy Thyroid: Thyroid normal Resp Auscultation: clear to auscultation bilaterally, no rales and no wheezes Cardio Rate: regular rate Rhythm: regular rhythm Heart sounds: no murmurs GI Palpation (GI): Soft to palpation and nontender Auscultation: normal bowel sounds General: Yes no CVA tenderness Back/Spine/Pelvis Back: no CVA tenderness Cervical Spine: No Cervical spine tenderness Thoracic/Lumbar Spine: paraspinal muscle tenderness on the right in the mid lumbar and in the lower lumbar and No lumbar spinal tenderness Skin Rashes: no rashes Neuro General: patient oriented x3, moves all extremities and no focal motor deficits Gait exam (Neuro): Normal gait present Extrem General: Yes no clubbing, cyanosis or edema Left lower extremity: hip/thigh Details: tenderness Location: of the hip Psych Thought process: Normal thought process present Results Reviewed Results Reviewed: Laboratory Tests 09/16/24 10:27 Sodium 144 Potassium 4.5 Creatinine 1.78 H Estimated GFR 29 Random Glucose 154 H Uric Acid 7.1 H Calcium 10.2 Phosphorus 3.0 Iron 36 TIBC 252 % Saturation 14 L Total Protein (PEP) 7.3 Albumin (PEP) 4.2 25-OH Vitamin D Total 36.2 Ur Specific [place] 1.020 Urine Protein Trace Urine Glucose (UA) >=1000 H Urine Blood Negative Urine Nitrite Negative Ur Leukocyte Esterase Small (1+) H Assessment & Plan Assessment & Plan (1) Medicare annual wellness visit, initial: Code(s): Z00.00 - Encounter for general adult medical examination without abnormal findings Plan: ARY updated HRA form discussed and completed with patient; will be scanned into patient's chart (2) Coronary artery disease: Comment: S/P NH; had PCI to RCA and LAD in [place] in 2019 Code(s): I25.10 - Atherosclerotic heart disease of [place] coronary artery without angina pectoris Qualifiers: Associated angina: without angina Coronary Disease-Associated Artery/Lesion type: [place] artery [place] vs. transplanted heart: [place] heart Qualified Code(s): I25.10 - Atherosclerotic heart disease of [place] coronary artery without angina pectoris Plan: Patient currently has no acute cardiac or anginal symptoms Continue Aspirin 81 mg QD and Clopidogrel 75 mg QD - she needs to be on lifelong antiplatelet Tx due to her Hx of PCI in 2019 Continue Metoprolol tartrate 12.5 mg BID She used to follow-up with cardiology in [place] but is now requesting to transfer over to [facility] cardiology - referral placed (3) Mixed hyperlipidemia: Code(s): E78.2 - Mixed hyperlipidemia Plan: Results of her labs done a couple of weeks ago reviewed and discussed with patient but these were nonfasting labs and did not include her lipid profile Reinforced low-cholesterol diet Continue Atorvastatin 80 mg QD Will have her recheck her labs and fasting lipids in 3 months for follow-up (4) Diabetes mellitus: Code(s): E11.9 - Type 2 diabetes mellitus without complications Qualifiers: Diabetes mellitus complication detail: with unspecified neuropathy Diabetes mellitus complication status: with neurologic complications Diabetes mellitus prison 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 Diabetes mellitus type: type 2 Qualified Code(s): E11.40 - Type 2 diabetes mellitus with diabetic neuropathy, unspecified; 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 Plan: Her HgbA1c was at 6.9% when it was last checked in May 2024 (was previously at 7.2% earlier this year) - goal is at least <7.0% but ideally <6.5% Reinforced diabetic diet Continue Lantus 20 units Q HS, Humalog 10 units TID with meals and Mounjaro 2.5 mg SQ once a week Will recheck her HgbA1c and FBS in 3 months for follow up (5) Essential hypertension: Code(s): I10 - Essential (primary) hypertension Plan: Reinforced low sodium diet - goal is systolic BP of at least 120 to 130 mm or less Continue Metoprolol tartrate 12.5 mg BID (6) Chronic kidney disease, stage III (moderate): Code(s): N18.30 - Chronic kidney disease, stage 3 unspecified Qualifiers: Chronic kidney disease stage 3 subtype: stage 3b (GFR 30-44) Qualified Code(s): N18.32 - Chronic kidney disease, stage 3b Plan: Patient's GFR and serum creatinine appears to have improved slightly on her recent labs She is currently not on an VILMA inhibitor or ARB for renoprotection - will hold off on starting her on one of these for now and see how her renal function is over the next few months She is now being seen by Nephrology is currently scheduled for a renal biopsy in a couple of weeks as her recent workups/labs 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 Will have patient recheck her labs in 3 months for follow up (7) Peripheral neuropathy: Code(s): G62.9 - Polyneuropathy, unspecified Qualifiers: Peripheral neuropathy type: polyneuropathy, unspecified Qualified Code(s): G62.9 - Polyneuropathy, unspecified Plan: Continue Gabapentin 300 mg Q HS and Lidocaine 5% patches QD PRN (8) Gout: Code(s): M10.9 - Gout, unspecified Qualifiers: Chronicity: chronic Gout etiology: unspecified cause Gout site: unspecified site Presence of tophus: without tophus Qualified Code(s): M1A.9XX0 - Chronic gout, unspecified, without tophus (tophi) Plan: Her serum uric acid level has improved to 7.1 mg/dL on her recent labs done a couple of weeks ago (was previously at 8.6 mg/dl a few months ago) Reinforced low purine diet Continue Allopurinol 100 mg QD for now - prefer not to raise dose due to her renal function May need to switch her to Febuxostat later on if her renal function continues to get worse Will recheck her serum uric acid level in a few months for follow up (9) GERD without esophagitis: Code(s): K21.9 - Gastro-esophageal reflux disease without esophagitis Plan: Reinforced dietary restrictions in GERD Continue Famotidine 20 mg QD (10) Vitamin D deficiency: Code(s): E55.9 - Vitamin D deficiency, unspecified Plan: Continue Vitamin D3 1000 units QD (11) Right-sided low back pain with sciatica: Code(s): M54.41 - Lumbago with sciatica, right side Qualifiers: Chronicity: unspecified Sciatica laterality: sciatica of right side Qualified Code(s): M54.41 - Lumbago with sciatica, right side Plan: X-rays of the lumbar spine done a few months ago revealed (+) facet osteoarthritis at L4-L5 and L5-S1 Reinforced activity and weight-lifting restrictions Have advised patient that we can refer her to physical therapy if her low back pain continues to bother her a lot - patient states that she will call for referral to PT when needed (12) Primary osteoarthritis of left hip: Code(s): M16.12 - Unilateral primary osteoarthritis, left hip Plan: Left hip x-rays done a few months ago also revealed (+) mild OA changes in the left hip We can consider referring her to orthopedics if her hip pain gets worse (13) Obesity (BMI 30-39.9): Code(s): E66.9 - Obesity, unspecified Plan: Reinforced diet/exercise as tolerated/lose weight (14) Breast cancer screening by mammogram: Code(s): Z12.31 - Encounter for screening mammogram for malignant neoplasm of breast Plan: Patient states that she has never had a mammogram done in the past, by choice, but is now agreeable to start getting her annual mammogram - screening mammogram ordered (15) Colon cancer screening: Code(s): Z12.11 - Encounter for screening for malignant neoplasm of colon Plan: Patient states that she has never had a screening colonoscopy done, by choice, and she still does not want to have a colonoscopy but is agreeable to Cologuard testing instead Will order Cologuard and patient is advised to try to get this done as soon as she gets the test kit in the mail (16) Osteoporosis screening: Code(s): Z13.820 - Encounter for screening for osteoporosis Plan: Patient has also never had a bone density scan done in the past Will send her for BMD to start osteoporosis screening (17) Cervical cancer screening declined: Code(s): Z53.20 - Procedure and treatment not carried out because of patient's decision for unspecified reasons Plan: Patient has not had her yearly gynecology exam and Pap smear done in a few years now and states that at her age, she does not wish to keep up with this any longer Plan Follow-up in 3 months Orders: Orders MM tomosynthesis screening BI 09/30/24 Z12.31 - Encounter for screening mammogram for malignant neoplasm of breast XR DEXA axial skeleton 09/30/24 Z78.0 - Asymptomatic menopausal state Complete Blood Count Auto Diff 3 Months D64.9 - Anemia, unspecified Comprehensive [place]. Panel Fast 3 Months E78.00 - Pure hypercholesterolemia, unspecified Lipid Panel 3 Months E78.00 - Pure hypercholesterolemia, unspecified TSH reflex Free T4 3 Months E78.00 - Pure hypercholesterolemia, unspecified UA CC w/rflx Micro + Cult 3 Months R30.0 - Dysuria Referrals Cologuard Test Z12.11 - Encounter for screening for malignant neoplasm of colon Cardiology Referral I25.10 - Atherosclerotic heart disease of [place] coronary artery without angina pectoris Quality Reporting (2019) Depression/Bipolar (159/160/161/177) PHQ-9: Total score: 3 Coding Level of Care Code Medicare First (G0438) Est Pt Level 4 (27757) Diagnoses Medicare annual wellness visit, initial Z00.00 Coronary artery disease involving [place] coronary artery of [place] heart without angina pectoris I25.10 Associated angina: without angina Coronary Disease-Associated Artery/Lesion type: [place] artery [place] vs. 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 Diabetes mellitus type: type 2 Essential hypertension I10 Stage 3b chronic kidney disease N18.32 Chronic kidney disease stage 3 subtype: stage 3b (GFR 30-44) Peripheral polyneuropathy G62.9 Peripheral neuropathy type: polyneuropathy, unspecified Chronic gout without tophus, unspecified cause, unspecified site M1A.9XX0 Chronicity: chronic Gout etiology: unspecified cause Gout site: unspecified site Presence of tophus: without tophus GERD without esophagitis K21.9 Vitamin D deficiency E55.9 Right-sided low back pain with right-sided sciatica, unspecified chronicity M54.41 Chronicity: unspecified Sciatica laterality: sciatica of right side Primary osteoarthritis of left hip M16.12 Obesity (BMI 30-39.9) E66.9 Breast cancer screening by mammogram Z12.31 Colon cancer screening Z12.11 Osteoporosis screening Z13.820 Cervical cancer screening declined Z53.20 CPT Codes Advance Care Planning - Time spent: 1-15 minutes, not on file ([id number]) Additional Codes PHQ-9 - 46336 - PHQ-9 Billing: Yes ([id number]) Advance Care Planning Date of discussion: 09/30/24 Who was present: patient, daughter, PCP Time spent: 1-15 minutes, not on file
[2024-09-30 16:08] VITALS: BP 118/78; PULSE 68; O2SAT 97; BMI 35.7
--- OUTSIDE RECORDS SUMMARY | 2024-09-30 16:18 | XMS_ITS | Clinical Summary ---
Author Organization [employer] Address [address] [place] [address] Care Team Providers Care Manager Supply Chain Name Role Phone Unavailable Primary Care Provider [...] patient's age to complete this topic Insurance [facility] FULL
--- OUTSIDE RECORDS SUMMARY | 2024-09-30 16:18 | XMS_ITS | Clinical Summary ---
Author Organization [facility] Address [address] [place] [address] Phone Care Team Providers Care Pneudraulic Systems Mechanic Name Role Phone Nicholas Dunlap MD Primary Care Provider [phone] Allergies No known active allergies Medications aspirin [...] MG SL tabletIndication s:Coronary artery disease involving [place] coronary artery of resighini heart without angina pectoris Place 1 tablet [...] Diagnosed Date Coronary artery disease invo lving [place] coronary artery of [place] heart without angina pectoris 12/01/2022 Syncope 05/26/2022 [...] -Needs to be established with a local medical doctor nuclear medicine and PCP to resume her medications Cerebrovascular [...] Liu. Will schedule for diagnostic cath at [facility]. I sent a prescription for nitroglycerin to [...] (05/26/2022 7:04 PM EDT): As above, prior [place] x2, last 4 years ago at which time she had multiple stents placed. Prior medical doctor nuclear medicine in [place]. No recent episodes of chest pain or [...] sliding scale with meals and nightly with [id number]-[id number] glucose monitoring 4 times daily -Constant carbohydrate [...] below and neurology consult. Case discussed with [facility] [place] team. Note reviewed with [...] -TTE, telemetry, 30 day heart monitor at [place] and neuro follow up Encounters Date Type Department Care Team Description 07/19/2024 3:30 PM EDT Office Visit [facility] [address], [address] [place] [address] Radha Hay DNP Hyperlipidemia, unspecified hyperlipidemia type (Primary Dx) 07/16/2024 3:01 PM EDT - 07/16/2024 11:59 PM EDT Hospital Encounter [facility] [address] [place] [address] Radha Hay DNP Discharge Disposition: Home or [...] End Date Used to work in a [employer], now retired Not on file Not on [...] Description 01/17/2025 3:30 PM EST Office Visit [facility] [address], [address] [place] [address] Radha Hay, [facility] [address], [address] [place] [address] Health Maintenance Due Date Last Done Comments [...] HEMOGLOBIN A1C 7.0(H) 4.3 - 5.8 % [facility] Blood 07/16/2024 3:16 PM EDT 07/16/2024 3:20 PM EDT Radha Hay [facility] LAB BLOOD ORDERABLES Final Result Performing Organization Address [facility]/ZIP Co de Phone Number [address] [address] * (ABNORMAL) Lipid panel (07/16/2024 3:16 PM EDT) HDL 40 mg/dL [facility] Comment: Interpretation <40 mg/dL: Low HDL cholesterol (major risk factor for CHD) Greater than or equal to 60 mg/dL: High HDL cholesterol ( negative risk factor for CHD) HDL - cholesterol is affected by a number of factors, e.g. smoking, excerise, hormones, sex and age. CHOLESTEROL 164 0 - 240 mg/dL [facility] TRIGLYCERIDES 211(H) 30 - 160 mg/dL [facility] LDL 82 50 - 129 mg/dL [facility] Comment: LDL levels in terms of risk for coronary heart disease: <100 mg/dL: Optimal 100-129 mg/dL: Near or above optimal 130-159 mg/dL: Borderline high 160-189 mg/dL: High >190 mg/dL: Very High CARDIAC RISK RATIO 4.1 3.3 - 4.4 C [facility] Blood 07/16/2024 3:16 PM EDT 07/16/2024 3:20 PM EDT Radha Hay [facility] LAB BLOOD ORDERABLES Final Result Performing Organization Address City/[facility]/ZIP Co de Phone Number [address] [address] from Last 3 Months Insurance [facility] & B [facility] PART [facility] & B B MEDICARE PART A & B B MEDICARE PART A & B [facility] MED[facility] PART A & B [facility] MED[facility] PART A & B Advance Directives For more information, please contact: [phone] (9AM - 5PM [facility], Monday-Monday) * Full Code (Latest Code Status on File) Date Activated Date Inactivated Comments 05/26/2022 6:57 PM Question Answer Comments Code Status Confirmed With: Patient Care Teams Pneudraulic Systems Mechanic Relationship Specialty Start Date End Date Nicholas Dunlap MD [address] [place] [address] [place] [address] PCP - General Internal Medicine 11/22/23 Additional Source Comments The information contained in this document represents components of the legal health record. It is not the complete legal health record.[facility]
== END 2024-09-30 17:19 | disposition home or self-care (01) ==
LOC: HO.HMCH 16:06
PROVIDERS: PCP Internal Medicine; Visit Provider Internal Medicine
DX: Z00.00 Encounter for general adult medical examination without abnormal findings (principal); I12.9 Hypertensive chronic kidney disease with stage 1 through stage 4 chronic kidney disease, or unspecified chronic kidney disease; E11.40 Type 2 diabetes mellitus with diabetic neuropathy, unspecified; Z79.4 Long term (current) use of insulin; N18.32 Chronic kidney disease, stage 3b; I25.10 Atherosclerotic heart disease of native coronary artery without angina pectoris; E78.2 Mixed hyperlipidemia; G62.9 Polyneuropathy, unspecified; M1A.9XX0 Chronic gout, unspecified, without tophus (tophi); K21.9 Gastro-esophageal reflux disease without esophagitis; E55.9 Vitamin D deficiency, unspecified; M54.41 Lumbago with sciatica, right side

== ENCOUNTER → 2024-09-30 16:05 | Outpatient (BNVA) | payer MEDICARE, MEDICAID, SELFPAY | PROVIDERS: PCP Internal Medicine; Visit Provider Internal Medicine | DX: Z00.00 Encounter for general adult medical examination without abnormal findings (principal); E66.9 Obesity, unspecified; Z68.35 Body mass index [BMI] 35.0-35.9, adult; I25.10 Atherosclerotic heart disease of native coronary artery without angina pectoris; E78.2 Mixed hyperlipidemia; E11.40 Type 2 diabetes mellitus with diabetic neuropathy, unspecified; I12.9 Hypertensive chronic kidney disease with stage 1 through stage 4 chronic kidney disease, or unspecified chronic kidney disease; E11.22 Type 2 diabetes mellitus with diabetic chronic kidney disease; N18.32 Chronic kidney disease, stage 3b; M1A.9XX0 Chronic gout, unspecified, without tophus (tophi); K21.9 Gastro-esophageal reflux disease without esophagitis; E55.9 Vitamin D deficiency, unspecified; M54.41 Lumbago with sciatica, right side; M16.12 Unilateral primary osteoarthritis, left hip; Z71.3 Dietary counseling and surveillance | CPT/HCPCS: 96127; 99212 ==

== ENCOUNTER 2024-10-10 08:59 | Day surgery (SDC) | payer MEDICARE, MEDICAID, SELFPAY ==
--- OUTSIDE RECORDS SUMMARY | 2024-09-26 09:51 | XMS_ITS | Clinical Summary ---
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
--- NOTE | 2024-10-02 16:58 | PC.NURSE ---
Holding meds prior to procedure. Spoke to pt about holding meds Asa/Plavix Hold for 5 days LD: sat 10/04, Jardiance hold x 3days LD: 10/06 and noemiunlaurie--Do not take injection on sat 10/05 and insulin 1/2 dose the night before. Pt understand and reback the instructions.
--- NOTE | 2024-10-09 10:15 | PC.NURSE ---
Pre-procedure instructions spoke with pt about arrival time at 900 Am within [facility], pt stated she know where that is. Also went over the holding of her meds, which the pt was called last week about (ASA/Plavix x 5 days, Jardiance x3days, Mounjaro x 7 days and insulin only instructed to take 1/2 of dose at [facility] tonight. Npo after midnight with only sips of water with meds in am and holding the meds that were listed from above. Needs a ride to and from hospital--daughter will be bringing her here. Importances about someone staying with her overnight--pt stated I live with my daughter . No other questions/concerns about instructions. Pt understood instructions.
[2024-10-10] VITALS (15 sets, daily range): BP systolic 117–196; BP diastolic 53–74; PULSE 56–64; RESP 11–16; TEMP 36–36.8; O2SAT 93–100; BMI 35.5
--- NOTE | ~2024-10-10 | CT_ITS ---
PROCEDURE: CT GUIDED BIOPSY, KIDNEY CLINICAL INFORMATION: Neutrophilic cytoplasmic antibody vasculitis. Chronic renal insufficiency/failure COMPARISON: Ultrasound kidney 08/21/2024 TECHNIQUE: Following explaining CT fluoroscopy guided renal biopsy procedure, benefits and risk, a written consent was obtained. Patient was placed prone on fluoroscopy table and preliminary CT imaging was obtained through the abdomen with attention to both kidneys. Lower pole left kidney was selected due to slower position. Repeat imaging was obtained with lead markers through a selected axial plane. And optimal lead marker was selected and marked on the skin. The marked site was cleaned and draped with 2% chlorhexidine solution. 1% lidocaine was injected puncture site. Through a small skin incision an 18-gauge guide needle was advanced from this skin into the lower pole left kidney cortex. 2 coaxial biopsies were performed. Gelfoam was inserted postbiopsy to the guide needle. The guide needle was withdrawn and complete hemostasis achieved at puncture site. Patient tolerated procedure extremely well. Simple Band-Aid applied postprocedure. This CT examination was performed using dose optimization techniques as appropriate, variously including the following: *Automated exposure control *Adjustment of mA and/or kV according to patient size (this includes techniques or standardized protocols for targeted exams where dose is matched to indication/reason for exam; i.e. extremities or head)*Use of iterative reconstruction technique. Conscious sedation was administered during exam and patient monitored by IR nurse and radiologist during exam. DLP: 5 41 mGy/cm. FINDINGS: On preliminary CT imaging visualized liver, spleen, gallbladder, adrenal glands and kidneys unremarkable. Noted from mass or lymphadenopathy seen. CT fluoroscopy guided left renal lower pole core biopsy performed x 2. Postprocedure CT revealed trace perinephric blood. CT/CT biopsy renal LT IMPRESSION: Successful CT fluoroscopy guided left renal lower pole core biopsy performed. Electronically signed by: Duane Matthews MD 10/11/2024 07:57 AM EDT
[2024-10-10 09:37] LABS: Glucose, Whole Blood 141 mg/dL (60-115)
[2024-10-10 09:41] LABS: MANUAL DIFF FLAG NO
[2024-10-10 09:43] LABS: Hematocrit 42.5 % (37.0-47.0); Hemoglobin 13.8 g/dl (12.0-16.0); Imm Gran Abs Auto 0.06 X10*3/uL (0.00-0.03); Imm Gran Pct Auto 0.5 % (0.0-0.4); Lymphocytes Absolute Auto 1.6 X10*3/uL (1.2-4.9); Mean Corpuscular HGB Conc 32.5 g/dl (31.0-35.0); Mean Corpuscular Hemoglobin 27.1 pg (27.0-33.0); Mean Corpuscular Volume 83.5 fL (80.0-98.0); NRBC Abs Auto 0.000 X10*3/uL (0.0-0.012); NRBC Pct Auto 0.0 /100WBC (0.0-0.2); Platelet Count 257 X10*3/uL (160-400); Red Blood Count 5.09 X10*6/uL (4.20-5.50); White Blood Count 11.4 X10*3/uL (4.8-10.8)
[2024-10-10 09:52] LABS: INTERNATIONAL NORM RATIO 1.0 (0.9-1.1); Prothrombin Time 12.0 SEC (10.9-12.4)
[2024-10-10 10:02] LABS: Anion Gap 11 (12-20); Blood Urea Nitrogen 32 mg/dL (9-16); Calcium 9.6 mg/dL (8.4-10.2); Carbon Dioxide 26 mmol/L (22-29); Chloride 109 mmol/L (96-108); Creatinine Clr Calc Pharmacy 34.5; Estimated Glomerular Filt Rate 29; Potassium 4.0 mmol/L (3.3-5.1); Sodium 142 mmol/L (135-145)
== END 2024-10-10 13:30 | disposition home or self-care (01) ==
LOC: HO.SSS 09:00
PROVIDERS: Radiology Diagnostic Radiology; PCP Internal Medicine; Visit Provider Internal Medicine Critical Care Medicine
DX: I77.82 Antineutrophilic cytoplasmic antibody [ANCA] vasculitis (principal); I12.9 Hypertensive chronic kidney disease with stage 1 through stage 4 chronic kidney disease, or unspecified chronic kidney disease; E11.22 Type 2 diabetes mellitus with diabetic chronic kidney disease; N18.32 Chronic kidney disease, stage 3b; E78.5 Hyperlipidemia, unspecified; I25.10 Atherosclerotic heart disease of native coronary artery without angina pectoris; Z95.5 Presence of coronary angioplasty implant and graft; M10.9 Gout, unspecified; M54.41 Lumbago with sciatica, right side; Z79.4 Long term (current) use of insulin; Z79.82 Long term (current) use of aspirin; Z79.899 Other long term (current) drug therapy; Z87.891 Personal history of nicotine dependence
CPT/HCPCS: 36415; 50200; 77012; 80048; 82947; 85025; 85610; 86850; 86900; 86901; 88300; 88305; 88313; 88346; 88348; 88350; 99152; J2003; J2250; J3010

== ENCOUNTER → 2024-10-10 10:58 | Outpatient (BNV) | payer MEDICARE, MEDICAID, SELFPAY | PROVIDERS: PCP Internal Medicine; Visit Provider Radiology Diagnostic Radiology | DX: I77.82 Antineutrophilic cytoplasmic antibody [ANCA] vasculitis (principal); N18.9 Chronic kidney disease, unspecified | CPT/HCPCS: 50200; 77012 ==

== ENCOUNTER 2024-10-15 15:19 | Outpatient (AMB) | payer MEDICARE, MEDICAID, SELFPAY ==
--- NOTE | 2024-10-15 15:30 | A.OFFVIS_ITS ---
Vital Signs 10/15/24 15:37 Height 5 ft 3 in Weight 200 lb BMI 35.4 BP 138/60 Blood Pressure Location Rt brachial Position Sitting Pulse 64 Pulse Source Pulse Oximeter Pulse Oximetry (%) 96 Oxygen Delivery Method Room Air Intake Visit Reasons: Dorsalgia, unspecified Intake Note: Pain today 09/22 Water Resources Project Manager Required: No Accompanied by: Self / Same As Patient Allergies No Known Allergies Allergy (Verified 10/15/24 15:34) HPI Comments Details: The patient is a 63-year-old female presenting with chronic lower back pain radiating to both legs. The pain has been persistent for over five years, significantly affecting her daily activities, including sleeping, self-care, and mobility, necessitating the use of a cane and walker. The pain is described as aching, stabbing, burning, with pins and needles sensation, and is exacerbated by movement and weather changes. Back pain primarily radiates today right lower extremity posteriorly and into the heel is chronic neuropathy in both feet. She also reports occasional radiation of pain into right [place] with intermittent weakness and left knee and lower leg pain with tenderness. Denies recent trauma, injury, or falls. Her x-ray this year revealed facet arthritis primarily at L4-L5 and L5-S1. Despite the chronicity of her symptoms, she has not engaged in physical therapy, citing time constraints and significant pain, although she does ride a stationary bicycle at home. Denies previous spine surgery or injections. The patient has a significant medical history including CVA, CAD s/p cardiac stents x2 on Plavix, chronic kidney disease stage 3, obesity, peripheral neuropathy, diabetes mellitus, gout, myocardial infarction, and a history of smoking. She is currently on gabapentin for neuropathy, which has been ineffective for her back pain, and she avoids NSAIDs due to her kidney condition. Her diabetes is managed with daily blood sugar monitoring, reporting readings of 120-130 mg/dL. - Onset: Chronic pain for over 5 years, worsening for past 2 years - Quality: Aching, stabbing, burning, pins and needles, numbness - Location: Lower back radiating to both legs, worse in the right leg - Exacerbating factors: Movement, weather changes, standing, cooking, washing dishes - Relieving factors: Partial relief with oral medications, heat application - Interference: Affects daily activities, sleep, self-care, requires cane and walker for mobility - Affect: Pain significantly impacts daily activities and quality of life - Analgesia: Current use of gabapentin, ineffective for back pain; pain level 10/10 with movement, 8/10 at rest - Adverse Effects: No specific adverse effects reported from current medications - Activities of Daily Living: Pain interferes with mobility, self-care, and household tasks - Aberrant Drug Related Behaviors: No aberrant behaviors reported [facility] Medical History (Updated 10/16/24 @ 07:47 by VAISHNAVI Linton) Former smoker CVA (cerebral vascular accident) Primary osteoarthritis of left hip Chronic kidney disease, stage III (moderate) Obesity (BMI 30-39.9) GERD without esophagitis Peripheral neuropathy Vitamin D deficiency Mixed hyperlipidemia Essential hypertension Diabetes mellitus Coronary artery disease Gout Myocardial infarction Surgical History Hx of section History of coronary angioplasty with insertion of stent H/O removal of cyst Family History Mother No problems noted. Father Alzheimer disease Brother No problems noted. Daughter No problems noted. Son No problems noted. Son No problems noted. Social History Household Members: Other Housing: Apartment Alcohol intake: never Patient Tobacco Use Status: Former Tobacco user Tobacco use type: Cigarette e-Cigarette/Vaping Use: Former Use Second Hand Smoke Exposure: No Current occupational status: unemployed Cognitive needs: No Hearing needs: No Vision needs: Yes Review of Systems Const Details: - Musculoskeletal: Reports chronic lower back pain radiating to legs, worse in the right leg - Neurological: Reports numbness and tingling in both legs, reports intermittent right leg weakness with pain, denies bladder or bowel dysfunction or saddle anesthesia All systems reviewed & are unremarkable except as noted in HPI and below Physical Exam Vital Signs: Last Vital Signs Pulse 64 10/15/24 15:37 BP 138/60 10/15/24 15:37 Pulse Ox 96 10/15/24 15:37 Oxygen Delivery Method Room Air 10/15/24 15:37 BMI result Body Mass Index 35.4 General: Appears afebrile. Alert and oriented. Mood and affect appropriate. Follows and participates in conversation appropriately. Respiratory effort is unlabored. No cough. Able to transition from sit to stand unassisted. Ambulates with cane. Ambulates with bilaterally normal heel strike and toe off on the left, increased back pain with standing on the toes on the right. General: Yes no CVA tenderness Back/Spine/Pelvis Other: Limited lumbar ROM due to pain. Antalgic gait with mild limping. No midline tenderness in cervical, thoracic or lumbar spine. Lumbar extension reproduces [id number] pain, lumbar flexion and bending forward reproduces [id number] pain. Demonstrates 5/5 left and 4/5 right strength of quadriceps bilaterally as well as flexion/dorsiflexion of bilateral feet against resistance. 2+ pedal pulses bilaterally. Straight leg rise with dorsiflexion positive on the right. +1 patellar and diminished achilles reflexes bilaterally. Facet loading test positive bilaterally. Kimmy sign, Bharat?s, Pelvic compression and Stinchfield tests are positive bilaterally. Mild to moderate groin pain with I/E hip rotations bilaterally. Difficulty lifting left leg due to hip and knee pain. Valsalva maneuver negative. Back: no CVA tenderness Cervical Spine: cervical ROM normal, cervical muscular tenderness, No Cervical spine scars present and No Cervical spine tenderness Thoracic/Lumbar Spine: thoracic and lumbar spine normal to inspection, No Thoracic/lumbar spine scar(s), Lasegue's sign positive on the right, pain with thoraco-lumbar ROM, paraspinal muscle tenderness on the right greater than left, thoraco-lumbar ROM limited, No thoracic spinal tenderness and lumbar spinal tenderness (L4-S1) Pelvis: buttock tenderness on the right Sacroiliac joints: bilaterally tender to palpation Extrem General: Yes capillary refill normal, Yes no clubbing, cyanosis or edema and Yes no calf tenderness Left lower extremity: knee Details: tenderness Location: of the patella, of the distal upper leg and of the proximal tibia, normal ROM and crepitus; no swelling, no abrasions, no lacerations, no ecchymosis, no deformity and no unusual warmth Results Reviewed Results Reviewed: XR lumbar spine 2-3V 03/06/24 CLINICAL HISTORY: M54.50 - Low back pain, unspecified Findings: Normal alignment. No acute fractures or dislocation. No significant loss of intervertebral disc height. Facet osteoarthritis is present at L4-L5 and L5-S1. IMPRESSION: No acute findings. XR hip LT min 2V 03/06/24 CLINICAL HISTORY: M25.552 - Pain in left hip Findings: No acute fracture or dislocation. Mild arthritic change. The soft tissues are unremarkable. IMPRESSION: No acute findings. Assessment & Plan Assessment & Plan (1) Left knee pain: Code(s): M25.562 - Pain in left knee Category: Medical (2) Left leg pain: Code(s): M79.605 - Pain in left leg Category: Medical (3) Left hip pain: Code(s): M25.552 - Pain in left hip Category: Medical (4) Primary osteoarthritis of left hip: Code(s): M16.12 - Unilateral primary osteoarthritis, left hip Category: Medical (5) Chronic low back pain with sciatica: Code(s): M54.40 - Lumbago with sciatica, unspecified side; G89.29 - Other chronic pain Category: Medical (6) Lumbosacral spondylosis: Code(s): M47.817 - Spondylosis without myelopathy or radiculopathy, lumbosacral region Category: Medical Plan The plan includes scheduling bilateral diagnostic L3-L4-DR L5 medial branch blocks with local and fluoroscopy to confirm predominantly axial low back pain and determine the efficacy of potential nerve ablation or peripheral nerve stimulation therapies. Expectations, risks and benefits were reviewed. Patient is aware she will be contacted to schedule this procedure. Patient on anticoagulation (Plavix) and instructions given on when to pause with prescribing physician permission. An x-ray of the left knee and lower leg will be ordered to evaluate the cause of the patient's knee pain. The patient will continue using gabapentin, and NSAIDs will be avoided due to chronic kidney disease. The patient is advised to maintain activity levels at home, including using a stationary bicycle, and to monitor pain levels post-injections to assess treatment efficacy. All questions and concerns have been answered and patient agreed with the treatment plan. Follow up after injections and sooner as needed. Orders: Orders XR knee LT 3V 10/15/24 M25.562 - Pain in left knee XR tibia fibula LT 2V 10/15/24 M25.562 - Pain in left knee, M79.605 - Pain in left leg Patient Instructions: - Schedule and attend the diagnostic injections appointment. - Stop taking Plavix as instructed before the procedure, pending prescribing physician clearance. - Continue using gabapentin as prescribed. Avoid NSAIDs due to chronic kidney disease. - Maintain activity levels at home, including using a stationary bicycle. - Document pain levels after the injection to assess treatment effectiveness. - Follow up for results of the knee x-ray and further management discussions. Patient was informed and verbally consented to the use of an ambient scribe for clinic note documentation during this visit. Coding Level of Care Code New Pt Level 4 (66577) Diagnoses Left knee pain M25.562 Left leg pain M79.605 Left hip pain M25.552 Primary osteoarthritis of left hip M16.12 Chronic low back pain with sciatica M54.40; G89.29 Lumbosacral spondylosis M47.817
[2024-10-15 15:37] VITALS: BP 138/60; PULSE 64; O2SAT 96; BMI 35.4
--- OUTSIDE RECORDS SUMMARY | 2024-10-15 16:26 | XMS_ITS | Clinical Summary ---
Author Organization [facility] Address [address] [place] [address] Phone Care Team Providers Care Crushing Mill Operator Name Role Phone Nicholas Dunlap MD Primary Care Provider [phone] [phone] Allergies No known active allergies Medications aspirin [...] MG SL tabletIndication s:Coronary artery disease involving [place] coronary artery of [place] heart without angina pectoris Place 1 tablet [...] Diagnosed Date Coronary artery disease invo lving [place] coronary artery of [place] heart without angina pectoris 12/01/2022 Syncope 05/26/2022 [...] -Needs to be established with a local hob grinder and PCP to resume her medications Cerebrovascular [...] Liu. Will schedule for diagnostic cath at [facility]. I sent a prescription for nitroglycerin [...] (05/26/2022 7:04 PM EDT): As above, prior [place] x2, last 4 years ago at which time she had multiple stents placed. Prior hob grinder in [place]. No recent episodes of chest pain or [...] sliding scale with meals and nightly with gfwps-oj-aunh glucose monitoring 4 times daily -Constant carbohydrate [...] below and neurology consult. Case discussed with [facility] neurology acute stroke team. Note reviewed with [...] -TTE, telemetry, 30 day heart monitor at [place] and neuro follow up Encounters Date Type Department Care Team Description 07/19/2024 3:30 PM EDT Office Visit [facility] [address], [address] [place] [address] Radha Hay DNP Hyperlipidemia, unspecified hyperlipidemia type (Primary Dx) 07/16/2024 3:01 PM EDT - 07/16/2024 11:59 PM EDT Hospital Encounter [facility] [address] [place] [address] Radha Hay DNP Discharge Disposition: Home or [...] End Date Used to work in a [employer], now retired Not on file Not on [...] Description 01/17/2025 3:30 PM EST Office Visit [facility] [address], [address] [place] [address] Radha Hay, [facility] [address], [address] [place] [address] Health Maintenance Due Date Last Done Comments [...] HEMOGLOBIN A1C 7.0(H) 4.3 - 5.8 % [facility] Blood 07/16/2024 3:16 PM EDT 07/16/2024 3:20 PM EDT Radha Hay [facility] LAB BLOOD ORDERABLES Final Result Performing Organization Address [facility]/ZIP Co de Phone Number [address] [address] * (ABNORMAL) Lipid panel (07/16/2024 3:16 PM EDT) HDL 40 mg/dL [facility] Comment: Interpretation <40 mg/dL: Low HDL cholesterol (major risk factor for CHD) Greater than or equal to 60 mg/dL: High HDL cholesterol ( negative risk factor for CHD) HDL - cholesterol is affected by a number of factors, e.g. smoking, excerise, hormones, sex and age. CHOLESTEROL 164 0 - 240 mg/dL [facility] TRIGLYCERIDES 211(H) 30 - 160 mg/dL [facility] LDL 82 50 - 129 mg/dL [facility] Comment: LDL levels in terms of risk for coronary heart disease: <100 mg/dL: Optimal 100-129 mg/dL: Near or above optimal 130-159 mg/dL: Borderline high 160-189 mg/dL: High >190 mg/dL: Very High CARDIAC RISK RATIO 4.1 3.3 - 4.4 C [facility] Blood 07/16/2024 3:16 PM EDT 07/16/2024 3:20 PM EDT Radha Hay [facility] LAB BLOOD ORDERABLES Final Result Performing Organization Address City/[facility]/ZIP Co de Phone Number [address] [address] from Last 3 Months Insurance [facility] & [facility] & B B MEDICARE PART A & B B MEDICARE PART A & B [facility] & B [facility] PART A & B Advance Directives For more information, please contact: [phone] (9AM - 5PM [facility], Monday-Monday) * Full Code (Latest Code Status on File) Date Activated Date Inactivated Comments 05/26/2022 6:57 PM Question Answer Comments Code Status Confirmed With: Patient Care Teams Crushing Mill Operator Relationship Specialty Start Date End Date Nicholas Dunlap MD [address] [place] [address] [place] [address] PCP - General Internal Medicine 11/22/23 Additional Source Comments The information contained in this document represents components of the legal health record. It is not the complete legal health record.[facility]
--- OUTSIDE RECORDS SUMMARY | 2024-10-15 16:26 | XMS_ITS | Encounter Summary ---
Author Organization [facility] Address [address] [place] [address] Phone Care Team Providers Care Associate Professor Of Chemistry Name Role Phone Pcp, Unknown Primary Care Provider Larisa Guidry ASSISTANT SALES MANAGER Primary Care Prov ider Nicholas Dunlap MD Primary Care Provider [phone] [phone] Encounter Details Date Type Department Care Team (Late st Contact Info) Description 05/26/2022 Procedure Pass [facility], Ct Scan - [facility] [address] [place] [address] Social History Tobacco Use Types Packs/Day Years Used Date Smoking Tobacco: Former Cigarettes Smokeless Tobacco: Current Comments:Daily vaping Alcohol Use Standard Drinks/Week Comments Not Currently 0 (1 standard drink = 0.6 oz pur e alcohol) Comments Unknown Sex and Gender Information Value Date Recorded Sex Assigned at Not on file Legal Sex Female 1:39 PM EDT Gender Identity Not on file Sexual Orientation Not on file Occupation Industry Job Start Date Job End Date Used to work in a [employer], now retired Not on file Not on file Not on file documented as of this encounter Functional Status * Calculated C-SSRS Risk Score (Lifetime/Recent) Answer Date of Assessment Author No Risk Indicated 05/26/2022 2:07 PM MARIET Vikram Lira RN * [place] Suicide Severity Rating Scale (Screener/Recent Self-Report) Question Answer Date of Assessment Author 1. Wish to be (Past 1 Month) No 023 2:07 PM Dori Ge RN 2. Non-Specific Active Suici christiano Thoughts (Past 1 Month) No 05/26/2022 2:07 PM EDT Britta Lira RN 6. Suicidal Behavior (Lifetime) No 2:07 PM EDT Dori Lira RN documented as of this encounter Plan of Treatment Upcoming Encounters Date Type Department Care Team (Late st Contact Info) Description 01/17/2025 3:30 PM EST Office Visit [facility] [address] 3rd Floor, [address] [place] [address] Radha Hay, ADRIEL [address] [facility], [address] [place], [place] [id number] [email or web address] documented as of this encounter Visit Diagnoses Not on filedocumented in this encounter Care Teams Associate Professor Of Chemistry Relationship Specialty Start Date End Date Pcp, Unknown PCP - General 05/26/22 12/01/22 Larisa Amato FNP [address] [place] [address] Dr [address] [place] [address] PCP - General Family Medicine 01/13/23 11/21/23 Nicholas Dunlap MD [address] [place] [address] Dr Hasmukh [address] [place] [address] PCP - General Internal Medicine 11/22/23 documented as of this encounter Additional Source Comments The information contained in this document represents components of the legal health record. It is not the complete legal health record.[facility]
--- OUTSIDE RECORDS SUMMARY | 2024-10-15 16:26 | XMS_ITS | Encounter Summary ---
Author Organization [facility] Address [address] 7 [place] [address] Care Team Providers Care Eating Disorder Specialist Name Role Phone Unavailable Primary Care Provider Unavailabl e Reason for Visit * Reason Onset Date Comments New Patient 11/01/2022 Encounter Details Date Type Department Care Team (Late st Contact Info) Description 11/01/2022 Telephone [facility] [address] [place], [place] [phone] Lenny Armendariz MD [address] [place], [place] [phone] New Patient Social History Tobacco Use Types [...] PM EDT Tc to pt, to Offer TELESALES SUPERVISOR appt, appears to be invalid. Call does not go through . documented in this encounter Plan of Treatment Not on file documented as of this encounter Visit Diagnoses Not on filedocumented in this encounter
--- OUTSIDE RECORDS SUMMARY | 2024-10-15 16:26 | XMS_ITS | Clinical Summary ---
Author Organization [employer] Address [address] [facility] 7t [place] [address] Care Team Providers Care Computerized Machine Fabric Cutter Name Role Phone Unavailable Primary Care Provider [...] age to complete this topic Insurance [facility] FULL
--- OUTSIDE RECORDS SUMMARY | 2024-10-15 16:26 | XMS_ITS | Encounter Summary ---
Author Organization [facility] Address [address] [place] [address] Phone Care Team Providers Care Fly Worker Name Role Phone Pcp, Unknown Primary Care Provider Larisa Guidry [place] Primary Care Prov ider Nicholas Dunlap MD Primary Care Provider [phone] [phone] Encounter Details Date Type Department Care Team (Late st Contact Info) Description 05/26/2022 Procedure Pass [facility], [address] [address] Social History Tobacco Use Types Packs/Day Years [...] End Date Used to work in a [employer], now retired Not on file Not on file Not on file documented as of this encounter Functional Status * Calculated C-SSRS Risk Score (Lifetime/Recent) Answer Date of Assessment Author No Risk Indicated 05/26/2022 2:07 PM MARIET Vikram Lira RN * [place] Suicide Severity Rating Scale (Screener/Recent Self-Report) Question Answer Date of Assessment Author 1. Wish to be (Past 1 Month) No 023 2:07 PM MARIET Dori Lira RN 2. Non-Specific Active Suici christiano Thoughts (Past 1 Month) No 05/26/2022 2:07 PM EDT Britta Lira RN 6. Suicidal Behavior (Lifetime) No 2:07 PM EDT Dori Lira RN documented as of this encounter Plan of Treatment Upcoming Encounters Date Type Department Care Team (Late st Contact Info) Description 01/17/2025 3:30 PM EST Office Visit [facility] [address] [facility] 3rd Floor, [address] [place], [place] [phone] Radha Hay, ADRIEL [address] [facility], [address] [place], [place] [phone] [email or web address] documented as of this encounter Visit Diagnoses Not on filedocumented in this encounter Care Teams Fly Worker Relationship Specialty Start Date End Date Pcp, Unknown PCP - General 05/26/22 12/01/22 Larisa Amato FNP [address] [place] [address] Dr [address] [place] [address] PCP - General Family Medicine 01/13/23 11/21/23 Nicholas Dunlap MD [address] [place] [address] Dr Hasmukh [address] [place] [address] PCP - General Internal Medicine 11/22/23 documented as of this encounter Additional Source Comments The information contained in this document represents components of the legal health record. It is not the complete legal health record.[facility]
--- OUTSIDE RECORDS SUMMARY | 2024-10-15 16:26 | XMS_ITS | Encounter Summary ---
Author Organization [facility] Address [address] [facility] [address] [place] [address] Phone Care Team Providers Care Freight Unloader Name Role Phone Pcp, Unknown Primary Care Provider Larisa Guidry MARKET SUPERINTENDENT Primary Care Prov ider Nicholas Dunlap MD Primary Care Provider [phone] [phone] Encounter Details Date Type Department Care Team (Late Contact Info) Description 05/27/2022 Procedure Pass [facility] [address] [place] [address] Social History Tobacco Use Types Packs/Day Years [...] End Date Used to work in a [employer], now retired Not on file Not on file Not on file documented as of this encounter Plan of Treatment Upcoming Encounters Date Type Department Care Team (Late Contact Info) Description 01/17/2025 3:30 PM EST Office Visit [facility] [address] [facility] 3rd Floor, [address] [place] [address] Radha Hay, ADRIEL 22 [facility], [address] [place] [address] [email or web address] documented as of this encounter Visit Diagnoses Not on filedocumented in this encounter Care Teams Freight Unloader Relationship Specialty Start Date End Date Pcp, Unknown PCP - General 05/26/22 12/01/22 Larisa Amato FNP [address] [place] [address] Dr Matos [address] [place] [address] PCP - General Family Medicine 01/13/23 11/21/23 Nicholas Dunlap MD [address] [place] [address] [address] [place] [address] PCP - General Internal Medicine 11/22/23 documented as of this encounter Additional Source Comments The information contained in this document represents components of the legal health record. It is not the complete legal health record.[facility]
--- OUTSIDE RECORDS SUMMARY | 2024-10-15 16:26 | XMS_ITS | Encounter Summary ---
Author Organization [facility] Address [address] [place] [address] Phone Care Team Providers Care Cold Press Loader Name Role Phone Pcp, Unknown Primary Care Provider Larisa Guidry PEDICAB DRIVER Primary Care Prov ider Nicholas Dunlap MD Primary Care Provider [phone] [phone] Encounter Details Date Type Department Care Team (Late st Contact Info) Description 12/01/2022 Procedure Pass [facility] [address] [place] [address] Social History Tobacco Use Types Packs/Day Years [...] tries to control you? No 12/01/2022 Comments Unknown Sex and Gender Information Value Date Recorded Sex Assigned at Not on file Legal Sex Female 1:39 PM EDT Gender Identity Not on file Sexual Orientation Not on file Occupation Industry Job Start Date Job End Date Used to work in a [employer], now retired Not on file Not on file Not on file documented as of this encounter Plan of Treatment Upcoming Encounters Date Type Department Care Team (Late st Contact Info) Description 01/17/2025 3:30 PM EST Office Visit [facility] [address] [facility] 3rd Floor, [address] [place] [address] Radha Hay, ADRIEL 22 [facility], [address] [place] [address] [email or web address] documented as of this encounter Visit Diagnoses Not on filedocumented in this encounter Care Teams Cold Press Loader Relationship Specialty Start Date End Date Pcp, Unknown PCP - General 05/26/22 12/01/22 Larisa Amato FNP [address] [place] [address] [place] [address] PCP - General Family Medicine 01/13/23 11/21/23 Nicholas Dunlap MD [address] [place] [address] Dr Hasmukh [address] [place] [address] PCP - General Internal Medicine 11/22/23 documented as of this encounter Additional Source Comments The information contained in this document represents components of the legal health record. It is not the complete legal health record.[facility]
--- OUTSIDE RECORDS SUMMARY | 2024-10-15 16:26 | XMS_ITS | Encounter Summary ---
Author Organization [facility] Address [address] [place] [address] Phone Care Team Providers Care Artificial Leather Calender Operator Name Role Phone Pcp, Unknown Primary Care Provider Larisa Guidry PACKAGE YARNS DRYING MACHINE OPERATOR Primary Care Prov ider Nicholas Dunlap MD Primary Care Provider [phone] [phone] Encounter Details Date Type Department Care Team (Late st Contact Info) Description 05/26/2022 Procedure Pass [facility], Ct Scan - [facility] [address] [place] [address] Social History Tobacco Use Types Packs/Day Years [...] End Date Used to work in a [employer], now retired Not on file Not on file Not on file documented as of this encounter Functional Status * Calculated C-SSRS Risk Score (Lifetime/Recent) Answer Date of Assessment Author No Risk Indicated 05/26/2022 2:07 PM MARIET Vikram Lira RN * [place] Suicide Severity Rating Scale (Screener/Recent Self-Report) Question [...] Description 01/17/2025 3:30 PM EST Office Visit [facility] [address], [address] [place] [address] Radha Hay, ADRIEL [address] [facility], [address] [place], [place] [address] [email or web address] documented as of this encounter Visit Diagnoses Not on filedocumented in this encounter Care Teams Artificial Leather Calender Operator Relationship Specialty Start Date End Date Pcp, Unknown PCP - General 05/26/22 12/01/22 Larisa Amato FNP [address] [place] [address] Dr [address] [place] [address] PCP - General Family Medicine 01/13/23 11/21/23 Nicholas Dunlap MD [address] [place] [address] Dr Hasmukh [address] [place] [address] PCP - General Internal Medicine 11/22/23 documented as of this encounter Additional Source Comments The information contained in this document represents components of the legal health record. It is not the complete legal health record.[facility]
--- OUTSIDE RECORDS SUMMARY | 2024-10-15 16:26 | XMS_ITS | Encounter Summary ---
Author Organization [facility] Address [address] [facility] [address] [place] [address] Phone Care Team Providers Care Customizer Name Role Phone Pcp, Unknown Primary Care Provider Larisa Guidry ARTIFICIAL LEATHER CALENDER OPERATOR Primary Care Prov ider Nicholas Dunlap MD Primary Care Provider [phone] [phone] Encounter Details Date Type Department Care Team (Late st Contact Info) Description 05/26/2022 Procedure Pass [facility] [address] [place] [address] Social History Tobacco Use Types Packs/Day Years [...] End Date Used to work in a [employer], now retired Not on file Not on file Not on file documented as of this encounter Functional Status * Calculated C-SSRS Risk Score (Lifetime/Recent) Answer Date of Assessment Author No Risk Indicated 05/26/2022 2:07 PM Vikram Ge RN * [place] Suicide Severity Rating Scale (Screener/Recent Self-Report) Question Answer Date of Assessment Author 1. Wish to be (Past 1 Month) No 023 2:07 PM Dori Ge, AUGUST 2. Non-Specific Active Suici christiano Thoughts (Past 1 Month) No 05/26/2022 2:07 PM EDT Britta Lira RN 6. Suicidal Behavior (Lifetime) No 2:07 PM EDT Dori Lira, RN documented as of this encounter Plan of Treatment Upcoming Encounters Date Type Department Care Team (Late st Contact Info) Description 01/17/2025 3:30 PM EST Office Visit [facility] [address] [facility] 3rd Floor, [address] [place], [place] [phone] Radha Hay, ADRIEL 22 [facility], [address] [place] [address] [email or web address] documented as of this encounter Visit Diagnoses Not on filedocumented in this encounter Care Teams Customizer Relationship Specialty Start Date End Date Pcp, Unknown PCP - General 05/26/22 12/01/22 Larisa Amato FNP [address] [place] [address] [address] [place] [address] PCP - General Family Medicine 01/13/23 11/21/23 Nicholas Dunlap MD [address] [place] [address] Dr Hasmukh [address] [place] [address] PCP - General Internal Medicine 11/22/23 documented as of this encounter Additional Source Comments The information contained in this document represents components of the legal health record. It is not the complete legal health record.[facility]
== END 2024-10-15 16:00 | disposition home or self-care (01) ==
LOC: HO.PMC 15:20
PROVIDERS: PCP Internal Medicine; Visit Provider Nurse Practitioner Family
DX: M25.562 Pain in left knee (principal); M79.605 Pain in left leg; M25.552 Pain in left hip; M16.12 Unilateral primary osteoarthritis, left hip; M54.40 Lumbago with sciatica, unspecified side; G89.29 Other chronic pain; M47.817 Spondylosis without myelopathy or radiculopathy, lumbosacral region
CPT/HCPCS: 99204

== ENCOUNTER → 2024-10-15 15:19 | Outpatient (BNVA) | payer MEDICARE, MEDICAID, SELFPAY | PROVIDERS: PCP Internal Medicine; Visit Provider Nurse Practitioner Family | DX: M47.817 Spondylosis without myelopathy or radiculopathy, lumbosacral region (principal); M54.50 Low back pain, unspecified; G89.29 Other chronic pain; M25.552 Pain in left hip; M79.605 Pain in left leg; M25.562 Pain in left knee | CPT/HCPCS: 99202 ==

== ENCOUNTER 2024-11-26 11:29 | Outpatient (REF) | payer MEDICARE, MEDICAID, SELFPAY ==
--- OUTSIDE RECORDS SUMMARY | 2024-11-26 14:05 | XMS_ITS | Encounter Summary ---
Author Organization [facility] Address [address] [facility] [address] [place] [address] Phone Care Team Providers Care Api Architect Name Role Phone Pcp, Unknown Primary Care Provider Larisa Guidry BASEBALL INSPECTOR AND REPAIRER Primary Care Prov ider Nicholas Dunlap MD Primary Care Provider [phone] [phone] Encounter Details Date Type Department Care Team (Late st Contact Info) Description 12/01/2022 Procedure Pass [facility] [address] [place] [address] Social History Tobacco Use Types Packs/Day Years [...] End Date Used to work in a [employer], now retired Not on file Not on file Not on file documented as of this encounter Plan of Treatment Upcoming Encounters Date Type Department Care Team (Late st Contact Info) Description 01/17/2025 3:30 PM EST Office Visit [facility] [address] [facility] 3rd Floor, [address] [place] [address] Radha Hay, ADRIEL 22 [facility], [address] [place] [address] [email or web address] documented as of this encounter Visit Diagnoses Not on filedocumented in this encounter Care Teams Api Architect Relationship Specialty Start Date End Date Pcp, Unknown PCP - General 05/26/22 12/01/22 Larisa Amato FNP [address] [place] [address] [place] [address] PCP - General Family Medicine 01/13/23 11/21/23 Nicholas Dunlap MD [address] [place] [address] Dr Hasmukh [address] [place] [address] PCP - General Internal Medicine 11/22/23 documented as of this encounter Additional Source Comments The information contained in this document represents components of the legal health record. It is not the complete legal health record.[facility]
--- OUTSIDE RECORDS SUMMARY | 2024-11-26 14:05 | XMS_ITS | Encounter Summary ---
Author Organization [facility] Address [address] [place] [address] Phone Care Team Providers Care Health Care Liaison Name Role Phone Pcp, Unknown Primary Care Provider Larisa Guidry ASSOCIATE SOFTWARE DEVELOPER Primary Care Prov ider Nicholas Dunlap MD Primary Care Provider [phone] [phone] Encounter Details Date Type Department Care Team (Late st Contact Info) Description 05/26/2022 Procedure Pass [facility], Ct Scan - [facility] [address] [place] [address] Social History Tobacco Use Types Packs/Day Years [...] End Date Used to work in a [employer], now retired Not on file Not on file Not on file documented as of this encounter Functional Status * Calculated C-SSRS Risk Score (Lifetime/Recent) Answer Date of Assessment Author No Risk Indicated 05/26/2022 2:07 PM MARIET Vikram Lira RN * [place] Suicide Severity Rating Scale (Screener/Recent Self-Report) Question [...] Description 01/17/2025 3:30 PM EST Office Visit [facility] [address] 3rd Floor, [address] [place] [address] Radha Hya, ADRIEL 22 [facility], [address] [place], [place] [phone] [email or web address] documented as of this encounter Visit Diagnoses Not on filedocumented in this encounter Care Teams Health Care Liaison Relationship Specialty Start Date End Date Pcp, Unknown PCP - General 05/26/22 12/01/22 Larisa Amato FNP [address] [place] [address] [address] [place] [address] PCP - General Family Medicine 01/13/23 11/21/23 Nicholas Dunlap MD [address] [place] [address] Dr Hasmukh [address] [place] [address] PCP - General Internal Medicine 11/22/23 documented as of this encounter Additional Source Comments The information contained in this document represents components of the legal health record. It is not the complete legal health record.[facility]
--- OUTSIDE RECORDS SUMMARY | 2024-11-26 14:05 | XMS_ITS | Encounter Summary ---
Author Organization [facility] Address [address] [facility] [address] [place] [address] Phone Care Team Providers Care Skip Locator Name Role Phone Pcp, Unknown Primary Care Provider Larisa Guidry WELFARE PROJECT MANAGER Primary Care Prov ider Nicholas Dunlap MD Primary Care Provider [phone] [phone] Encounter Details Date Type Department Care Team (Late st Contact Info) Description 05/26/2022 Procedure Pass [facility], [address] [address] Social History Tobacco Use Types Packs/Day Years [...] End Date Used to work in a [employer], now retired Not on file Not on file Not on file documented as of this encounter Functional Status * Calculated C-SSRS Risk Score (Lifetime/Recent) Answer Date of Assessment Author No Risk Indicated 05/26/2022 2:07 PM MARIET Vikram Lira RN * [place] Suicide Severity Rating Scale (Screener/Recent Self-Report) Question [...] Description 01/17/2025 3:30 PM EST Office Visit [facility] [address] [facility] 3rd Floor, [address] [place], [place] [phone] Radha Hay, ADRIEL 22 [facility], [address] [place], [place] [phone] [email or web address] documented as of this encounter Visit Diagnoses Not on filedocumented in this encounter Care Teams Skip Locator Relationship Specialty Start Date End Date Pcp, Unknown PCP - General 05/26/22 12/01/22 Larisa Amato FNP [address] [place] [address] Dr [address] [place] [address] PCP - General Family Medicine 01/13/23 11/21/23 Nicholas Dunlap MD [address] [place] [address] Dr Hasmukh [address] [place] [address] PCP - General Internal Medicine 11/22/23 documented as of this encounter Additional Source Comments The information contained in this document represents components of the legal health record. It is not the complete legal health record.[facility]
--- OUTSIDE RECORDS SUMMARY | 2024-11-26 14:05 | XMS_ITS | Encounter Summary ---
Author Organization [facility] Address [address] [place] [address] Phone Care Team Providers Care Health Care Legal Assistant Name Role Phone Pcp, Unknown Primary Care Provider Larisa Guidry COMMERCIAL PRODUCER Primary Care Prov ider Nicholas Dunlap MD Primary Care Provider [phone] [phone] Encounter Details Date Type Department Care Team (Late st Contact Info) Description 05/26/2022 Procedure Pass [facility], Ct Scan - [facility] [address] [place] [address] Social History Tobacco Use Types Packs/Day Years [...] End Date Used to work in a [employer], now retired Not on file Not on file Not on file documented as of this encounter Functional Status * Calculated C-SSRS Risk Score (Lifetime/Recent) Answer Date of Assessment Author No Risk Indicated 05/26/2022 2:07 PM MARIET Vikram Lira RN * [place] Suicide Severity Rating Scale (Screener/Recent Self-Report) Question [...] Description 01/17/2025 3:30 PM EST Office Visit [facility] [address]rd Floor, [address] [place] [address] Radha Hay, ADRIEL 22 [facility], [address] [place], [place] [phone] [email or web address] documented as of this encounter Visit Diagnoses Not on filedocumented in this encounter Care Teams Health Care Legal Assistant Relationship Specialty Start Date End Date Pcp, Unknown PCP - General 05/26/22 12/01/22 Larisa Amato FNP [address] [place] [address] [address] [place] [address] PCP - General Family Medicine 01/13/23 11/21/23 Nicholas Dunlap MD [address] [place] [address] Dr Hasmukh [address] [place] [address] PCP - General Internal Medicine 11/22/23 documented as of this encounter Additional Source Comments The information contained in this document represents components of the legal health record. It is not the complete legal health record.[facility]
--- OUTSIDE RECORDS SUMMARY | 2024-11-26 14:05 | XMS_ITS | Encounter Summary ---
Author Organization [facility] Address [address] [place] [address] Phone Care Team Providers Care Index Editor Name Role Phone Pcp, Unknown Primary Care Provider Larisa Guidry SPECIMEN PREPARATION ASSISTANT Primary Care Prov ider Nicholas Dunlap MD Primary Care Provider [phone] [phone] Encounter Details Date Type Department Care Team (Late st Contact Info) Description 05/26/2022 Procedure Pass [facility] [address] [place] [address] Social History Tobacco Use Types Packs/Day Years [...] End Date Used to work in a [employer], now retired Not on file Not on file Not on file documented as of this encounter Functional Status * Calculated C-SSRS Risk Score (Lifetime/Recent) Answer Date of Assessment Author No Risk Indicated 05/26/2022 2:07 PM Vikram Ge RN * [place] Suicide Severity Rating Scale (Screener/Recent Self-Report) Question [...] Description 01/17/2025 3:30 PM EST Office Visit [facility] [address] 3rd Floor, [address] [place], [place] [id number] Radha Hay, ADRIEL [address], [address] [place] [address] [email or web address] documented as of this encounter Visit Diagnoses Not on filedocumented in this encounter Care Teams Index Editor Relationship Specialty Start Date End Date Pcp, Unknown PCP - General 05/26/22 12/01/22 Larisa Amato FNP [address] [place] [address] [address] [place] [address] PCP - General Family Medicine 01/13/23 11/21/23 Nicholas Dunlap MD [address] [place] [address] Dr Hasmukh [address] [place] [address] PCP - General Internal Medicine 11/22/23 documented as of this encounter Additional Source Comments The information contained in this document represents components of the legal health record. It is not the complete legal health record.[facility]
--- OUTSIDE RECORDS SUMMARY | 2024-11-26 14:05 | XMS_ITS | Encounter Summary ---
Author Organization [facility] Address [address] [place] [address] Phone Care Team Providers Care University Administrator Name Role Phone Pcp, Unknown Primary Care Provider Larisa Guidry OIL LABORATORY ANALYST Primary Care Prov ider Nicholas Dunlap MD Primary Care Provider [phone] Encounter Details Date Type Department Care Team (Late Contact Info) Description 05/27/2022 Procedure Pass [facility]-In[facility] Cardiology [address] [place] [address] Social History Tobacco Use Types Packs/Day Years [...] End Date Used to work in a [employer], now retired Not on file Not on file Not on file documented as of this encounter Plan of Treatment Upcoming Encounters Date Type Department Care Team (Late Contact Info) Description 01/17/2025 3:30 PM EST Office Visit [facility] [address] [facility] 3rd Floor, [address] [place] [address] Radha Hay, ADRIEL [address] [facility], [address] [place] [address] [email or web address] documented as of this encounter Visit Diagnoses Not on filedocumented in this encounter Care Teams University Administrator Relationship Specialty Start Date End Date Pcp, Unknown PCP - General 05/26/22 12/01/22 Larisa Amato FNP [address] [place] [address] Dr Matos [address] [place] [address] PCP - General Family Medicine 01/13/23 11/21/23 Nicholas Dunlap MD [address] [place] [address] Dr [address] [place] [address] PCP - General Internal Medicine 11/22/23 documented as of this encounter Additional Source Comments The information contained in this document represents components of the legal health record. It is not the complete legal health record.[facility]
--- OUTSIDE RECORDS SUMMARY | 2024-11-26 14:05 | XMS_ITS | Clinical Summary ---
Author Organization [facility] Address [address] [place] [address] Phone Care Team Providers Care Occupational Medicine Officer Name Role Phone Nicholas Dunlap MD Primary Care Provider [phone] Allergies No known active allergies Medications aspirin [...] MG SL tabletIndication s:Coronary artery disease involving [place] coronary artery of [place] post[place] heart without angina pectoris Place 1 tablet [...] Diagnosed Date Coronary artery disease invo lving [place] coronary artery of [place] heart without angina pectoris 12/01/2022 Syncope 05/26/2022 [...] -Needs to be established with a local upholstery trimmer and PCP to resume her medications Cerebrovascular [...] Liu. Will schedule for diagnostic cath at [facility]. I sent a prescription for nitroglycerin [...] (05/26/2022 7:04 PM EDT): As above, prior [place] x2, last 4 years ago at which time she had multiple stents placed. Prior upholstery trimmer in [place]. No recent episodes of chest pain or [...] sliding scale with meals and nightly with gxfzc-ns-[id number] glucose monitoring 4 times daily -Constant carbohydrate [...] below and neurology consult. Case discussed with [facility] [place] neurology acute stroke team. Note reviewed with [...] -TTE, telemetry, 30 day heart monitor at [place] and neuro follow up Immunizations Immunization Administration Dates Next Due Influenza [...] End Date Used to work in a [employer], now retired Not on file Not on [...] Description 01/17/2025 3:30 PM EST Office Visit [facility] [address] [place] [address] 3rd Floor, [address] [place] [address] Radha Hay, [facility] [address] [facility], [address] [place] [address] [email or web address] Health Maintenance Due Date Last Done Comments DEPRESSION SCREENING 1970 SMOKING Hx and SMOKELESS TOBACCO SCREENING 11/19/1971 HEPATITIS C SCREENING 1976 PNEUMOCOCCAL VACCINES (50+ years) (1 of 2 - PCV) 1977 MAMMOGRAM 1998 COLOGUARD 11/19/2003 COLONOSCOPY 11/19/2003 COLORECTAL CANCER SCREENING 11/19/2003 FIT TEST 11/19/2003 FOBT 11/19/2003 SIGMOIDOSCOPY 11/19/2003 VIRTUAL COLONOSCOPY 11/19/2003 RSV VACCINE (1 - Risk 50-74 years 1-dose series) 2008 ZOSTER VACCINES (1 of 2) 2008 DIABETIC EYE EXAM 05/26/2022 URINE MICROALBUMIN/CREATININE RATIO 05/26/2022 04/14/2021 OSTEOPOROSIS SCREENING INITIAL (ONE-TIME) 11/19/2023 INFLUENZA VACCINE (#1) 2024 05/27/2022 COVID-19 VACCINE ( season) 2024 HEMOGLOBIN A1C 01/15/2025 07/16/2024, 11, 05/27/2022, Additional [...] Procedure Name Priority Date/Time Associated Diagnosis Comments HEMOGLOBIN A1C Routine 07/16/2024 3:16 PM EDT Type 2 diabetes mellitus with hyperglycemia, with long-term current use of insulin from Last 3 Months or Most Recently Relevant to Health Maintenance Results * (ABNORMAL) Hemoglobin A1c (07/16/2024 3:16 PM EDT) HEMOGLOBIN A1C 7.0(H) 4.3 - 5.8 % [facility] Blood 07/16/2024 3:16 PM EDT 07/16/2024 3:20 PM EDT us Radha Hay DNP LAB BLOOD ORDERABLES Final Result [address] [address] from Last 3 Months or Most Recently Relevant to Health Maintenance Insurance B MEDICARE PART A & B B MEDICARE PART A & B [facility] MED[facility] PART A & B QMB MEDICARE PART A & B [facility] MED[facility] PART A & B Advance Directives For more information, please contact: [phone] (9AM - 5PM [facility], Monday-Monday) * Full Code (Latest Code Status on File) Date Activated Date Inactivated Comments 05/26/2022 6:57 PM Question Answer Comments Code Status Confirmed With: Patient Care Teams Occupational Medicine Officer Relationship Specialty Start Date End Date Nicholas Dunlap MD [address] [place] [address] [place] [address] PCP - General Internal Medicine 11/22/23 Additional Source Comments The information contained in this document represents components of the legal health record. It is not the complete legal health record.[facility]
[2024-11-26 18:29] LABS: Anion Gap 19 (12-20); Blood Urea Nitrogen 33 mg/dL (9-16); Calcium 10.1 mg/dL (8.4-10.2); Carbon Dioxide 24 mmol/L (22-29); Chloride 107 mmol/L (96-108); Estimated Glomerular Filt Rate 25; Potassium 4.6 mmol/L (3.3-5.1); Sodium 145 mmol/L (135-145)
[2024-11-26 18:53] LABS: Microalbum/Creatinine Ratio Ur 49.7 ug/mg cr (<30); Total Protein Urine Random 10 mg/dL (<12)
[2024-11-27 04:59] LABS: Appearance Urine Clear; Glucose Urine UA >=1000 mg/dL (Negative); PH 5.0 (5.0-9.0); Specific Gravity - Urine 1.020 (1.005-1.025); UMIC TRIGGER UA YES
== END 2024-11-26 11:30 | disposition home or self-care (01) ==
LOC: HO.HKASLDS 11:29
PROVIDERS: PCP Internal Medicine; Visit Provider Internal Medicine Critical Care Medicine
DX: N18.32 Chronic kidney disease, stage 3b (principal); I77.82 Antineutrophilic cytoplasmic antibody [ANCA] vasculitis
CPT/HCPCS: 36415; 80048; 81001; 81003; 82043; 82570; 84156

== ENCOUNTER 2024-11-27 09:13 | Outpatient (REF) | payer MEDICARE, MEDICAID, SELFPAY ==
[2024-11-27 14:02] LABS: Troponin-I High Sensitivity 6.6 ng/L (<3.5-17.0)
== END 2024-11-27 09:14 | disposition home or self-care (01) ==
LOC: HO.HKASLDS 09:13
PROVIDERS: PCP Internal Medicine; Visit Provider Internal Medicine Critical Care Medicine
DX: I10 Essential (primary) hypertension (principal); I25.10 Atherosclerotic heart disease of native coronary artery without angina pectoris; E78.00 Pure hypercholesterolemia, unspecified; Z79.899 Other long term (current) drug therapy
CPT/HCPCS: 36415; 84484; 99212

== ENCOUNTER 2024-11-27 09:13 | Outpatient (AMB) | payer MEDICARE, MEDICAID, SELFPAY ==
[2024-11-27 09:27] VITALS: BP 102/70; PULSE 87; O2SAT 96; BMI 35.4
--- NOTE | 2024-11-27 09:27 | HO.NEPHOV ---
Vital Signs 11/27/24 09:27 Height 5 ft 3 in Weight 200 lb BMI 35.4 BP 102/70 Blood Pressure Location Lt brachial Position Sitting Pulse 87 Pulse Source Pulse Oximeter Pulse Oximetry (%) 96 Oxygen Delivery Method Room Air Intake Visit Reasons: 2mnth confirmed Foam Caster Required: No Accompanied by: Self / Same As Patient Allergies No Known Allergies Allergy (Verified 11/27/24 09:29) HPI Comments Details: 63-year-old lady with past medical history of CKD stage 3 biopsy suggesting possibly secondary to chronic renovascular disease/NSAID related, hypertension, diabetes, hyperlipidemia, CAD, gout is here for followup appointment. Complaining of chest pain this morning after taking shower while getting ready that lasted for about 30 minutes, radiating to left shoulder and had completely resolved after taking the rest. Yesterday while walking to the lab she developed shortness of breath on exertion again delivered with rest. DM- since 5 years, A1c 6.9; insulin lantus 20U, 10 U prior to each meal occasionally misses HTN- since 5 years, has BP machine at home. CAD: /sp PCI 4 years ago, on aspirin and atorvastatin gout- on allopurinol; stopped ibuprofen [facility] Medical History (Updated 10/16/24 @ 07:47 by VAISHNAVI Linton) Former smoker CVA (cerebral vascular accident) Primary osteoarthritis of left hip Chronic kidney disease, stage III (moderate) Obesity (BMI 30-39.9) GERD without esophagitis Peripheral neuropathy Vitamin D deficiency Mixed hyperlipidemia Essential hypertension Diabetes mellitus Coronary artery disease Gout Myocardial infarction Surgical History Hx of section History of coronary angioplasty with insertion of stent H/O removal of cyst Family History Mother No problems noted. Father Alzheimer disease Brother No problems noted. Daughter No problems noted. Son No problems noted. Son No problems noted. Social History Household Members: Other Housing: Apartment Alcohol intake: never Patient Tobacco Use Status: Former Tobacco user Tobacco use type: Cigarette e-Cigarette/Vaping Use: Former Use Second Hand Smoke Exposure: No Current occupational status: unemployed Cognitive needs: No Hearing needs: No Vision needs: Yes Review of Systems Const Details: Const : no body aches, no chills, no excessive sweating and no fatigue Eyes: no blurry vision and no change in vision ENT: no bleeding gums and no change in voice, no dizziness Card: no chest pain, no shortness of breath, no orthopnea, no PND Resp: no cough, no excessive phlegm production, no SOB GI: no abdominal pain and no nausea, no vomiting : no hematuria, no urinary frequency and no difficulty voiding Musc: no abnormal gait, no bone pain Neuro: no abnormal movements, no weakness Psych: no behavioral changes and no change in appetite Endo: no change in body appearance, no fatigue Physical Exam Vital Signs: Last Vital Signs Pulse 87 11/27/24 09: BP 102/70 11/27/24 09: Pulse Ox 96 11/27/24 09:27 Oxygen Delivery Method Room Air 11/27/24 09:27 BMI result Body Mass Index 35.4 General: not in any acute distress, comfortable, sitting on the chair Nutritional Appearance: well nourished and weight Eyes: normal position, no icterus Neck: No lymphadenopathy, no thyromegaly Resp: bilateral air entry equal, no added sounds present Cardio: normal S1, S2 heard, no murmur heard, no edema GI: soft, nontender, no guarding, no hepatosplenomegaly : bladder normal to inspection, bladder normal to palpation, no renal angle tenderness Skin: no rashes or lesions noted and elasticity normal Neuro: oriented to person, oriented to place, oriented to time and moves all extremities Results Reviewed Nephrology Results: Hgb, (12.0-16.0) 13.8 g/dl 10/10/24 WBC, (4.8-10.8) 11.4 X10*3/uL H 10/10/24 Plt Count, (160-400) 257 X10*3/uL 10/10/24 Sodium, (135-145) 145 mmol/L 11/26/24 Potassium, (3.3-5.1) 4.6 mmol/L 11/26/24 Chloride, (96-108) 107 mmol/L 11/26/24 Carbon Dioxide, (22-29) 24 mmol/L 11/26/24 BUN, (9-16) 33 mg/dL H 11/26/24 Creatinine, (0.5-1.4) 2.01 mg/dL H 11/26/24 Calcium, (8.4-10.2) 10.1 mg/dL 11/26/24 Phosphorus, (2.7-4.5) 3.0 mg/dL 09/16/24 PTH Intact, (8.7-77.1) 146.8 pg/mL H 08/21/24 Urine Protein, (Neg-Trace) Negative mg/dL 11/26/24 Urine Creatinine 90.52 mg/dL 11/26/24 Renal US 08/21/24 Assessment & Plan Assessment & Plan (1) Hypertension: Code(s): I10 - Essential (primary) hypertension Category: Medical (2) Hypercholesteremia: Code(s): E78.00 - Pure hypercholesterolemia, unspecified Category: Medical (3) CAD (coronary artery disease): Code(s): I25.10 - Atherosclerotic heart disease of [place] coronary artery without angina pectoris Category: Medical (4) Coronary artery disease: Comment: S/P [place]; had PCI to RCA and LAD in [place] in 2019 Code(s): I25.10 - Atherosclerotic heart disease of [place] coronary artery without angina pectoris Category: Medical Qualifiers: Coronary Disease-Associated Artery/Lesion type: [place] artery [place] vs. transplanted heart: [place] heart Associated angina: without angina Qualified Code(s): I25.10 - Atherosclerotic heart disease of [place] coronary artery without angina pectoris Plan Chronic kidney disease stage III/IV: - creatinine 1.83, 1.61 in 2022, 1.55 in 2024; GFR 27; creatinine increased to 2.01 this visit. - possibly due to diabetic kidney disease and partly contributed due to NSAID that she took for over a year. - had renal biopsy done in September 2024 as she had SUKUMAR positive 1-320 and Anca positivity; biopsy showed no active/healed cresents or immune deposits very few IgA reactive casts, 42% global glomerulosclerosis, 40-45% IFTA, moderate vascular sclerosis. - urine protein creatinine ratio: 202 mcg/mg in Feb 2024- decreased to 74.4; UACR 49 - Urinalysis shows 11-20WBCs, no RBC. - ultrasound of the kidneys showed normal kidneys 10.2 cms right, 9.4 cms left kidney - avoid nephrotoxic medications not limited to NSAIDs, contrast etc. - Manjauro for weight loss - importance of diet, weight loss, adequate blood pressure control, diet we will explained to patient - continue Jardiance given her history of DM for renal protection; additionally loosing weight might help Hypertension: - blood pressures are well controlled - target blood pressures less than 130 systolic - continue metorpolol; will hold off on VILMA/ARB due to hyperkalemia and worsening renal function with no significant proteinuria. Coronary artery disease: - patient has stable angina - will get troponins to see if she has acute coronary syndrome - caused her to proposal lead writer to see if he can see her here in a day or 2. Also explained her if the chest pain persists she needs to go to ER at [place]. - sent her a prescription for nitroglycerin 0.3mg SL asked her to take half a pill and see if pain goes away if it doesnt take another half as her blood pressures are soft. If pain still persists go to the ER. Anemia of chronic kidney disease: - normal iron, TIBC, ferritin levels Mineral bone disease: - normal calcium, low vitamin-D and high PTH levels - asked the patient to double vitamin D supplement back pain: - patient has low back pain and numbness, pain in lower extremity with difficulty in walking - continue gabapentin and refer her to pain management. Orders: Orders Troponin-I High Sensitivity Today E78.00 - Pure hypercholesterolemia, unspecified, I10 - Essential (primary) hypertension, I25.10 - Atherosclerotic heart disease of [place] coronary artery without angina pectoris Medications: New nitroglycerin do not exceed 3 doses per episode 0.3 mg sublingual Q5M PRN 30 tabs 0RF chest pain Coding Level of Care Code Est Pt Level 4 (05660) Diagnoses Hypertension I10 Hypercholesteremia E78.00 CAD (coronary artery disease) I25.10
--- OUTSIDE RECORDS SUMMARY | 2024-11-27 10:15 | XMS_ITS | Encounter Summary ---
Author Organization [facility] Address [address] [place] [address] Phone Care Team Providers Care Inspector Material Disposition Name Role Phone Pcp, Unknown Primary Care Provider Larisa Guidry SLITTER AND REWINDER MACHINE OPERATOR Primary Care Prov ider Nicholas Dunlap MD Primary Care Provider [phone] [phone] Encounter Details Date Type Department Care Team (Late st Contact Info) Description 05/26/2022 Procedure Pass [facility], Ct Scan - [facility] [address] [place] [address] Social History Tobacco Use Types Packs/Day Years [...] End Date Used to work in a [employer], now retired Not on file Not on file Not on file documented as of this encounter Functional Status * Calculated C-SSRS Risk Score (Lifetime/Recent) Answer Date of Assessment Author No Risk Indicated 05/26/2022 2:07 PM MARIET Vikram Lira RN * [place] Suicide Severity Rating Scale (Screener/Recent Self-Report) Question [...] Description 01/17/2025 3:30 PM EST Office Visit [facility] [address] 3rd Floor, [address] [place] [address] Radha Hay, ADRIEL [address] [facility], [address] [place], [place] [id number] [email or web address] documented as of this encounter Visit Diagnoses Not on filedocumented in this encounter Care Teams Inspector Material Disposition Relationship Specialty Start Date End Date Pcp, Unknown PCP - General 05/26/22 12/01/22 Larisa Amato FNP [address] [place] [address] Dr [address] [place] [address] PCP - General Family Medicine 01/13/23 11/21/23 Nicholas Dunlap MD [address] [place] [address] Dr Hasmukh [address] [place] [address] PCP - General Internal Medicine 11/22/23 documented as of this encounter Additional Source Comments The information contained in this document represents components of the legal health record. It is not the complete legal health record.[facility]
--- OUTSIDE RECORDS SUMMARY | 2024-11-27 10:15 | XMS_ITS | Encounter Summary ---
Author Organization [facility] Address [address] [place] [address] Phone Care Team Providers Care Electronic Semiconductor Processor Name Role Phone Pcp, Unknown Primary Care Provider Larisa Guidry DRUM SAW OPERATOR Primary Care Prov ider Nicholas Dunlap MD Primary Care Provider [phone] [phone] Encounter Details Date Type Department Care Team (Late st Contact Info) Description 05/26/2022 Procedure Pass [facility] [address] [place] [address] Social History Tobacco Use Types Packs/Day Years [...] End Date Used to work in a [employer], now retired Not on file Not on file Not on file documented as of this encounter Functional Status * Calculated C-SSRS Risk Score (Lifetime/Recent) Answer Date of Assessment Author No Risk Indicated 05/26/2022 2:07 PM Vikram Ge RN * [place] Suicide Severity Rating Scale (Screener/Recent Self-Report) Question [...] Description 01/17/2025 3:30 PM EST Office Visit [facility] [address] [facility] 3rd Floor, [address] [place], [place] [id number] Radha Hay, ADRIEL [address] [facility], [address] [place] [address] [email or web address] documented as of this encounter Visit Diagnoses Not on filedocumented in this encounter Care Teams Electronic Semiconductor Processor Relationship Specialty Start Date End Date Pcp, Unknown PCP - General 05/26/22 12/01/22 Larisa Amato FNP [address] [place] [address] Dr [address] [place] [address] PCP - General Family Medicine 01/13/23 11/21/23 Nicholas Dunlap MD [address] [place] [address] Dr Hasmukh [address] [place] [address] PCP - General Internal Medicine 11/22/23 documented as of this encounter Additional Source Comments The information contained in this document represents components of the legal health record. It is not the complete legal health record.[facility]
--- OUTSIDE RECORDS SUMMARY | 2024-11-27 10:15 | XMS_ITS | Clinical Summary ---
Author Organization [facility] Address [address] [place] [address] Phone Care Team Providers Care Resident Associate Name Role Phone Nicholas Dunlap MD Primary Care Provider [phone] [phone] Allergies No known active allergies Medications aspirin [...] MG SL tabletIndication s:Coronary artery disease involving [place] coronary artery of [place]os heart without angina pectoris Place 1 tablet [...] Diagnosed Date Coronary artery disease invo lving [place] coronary artery of [place] heart without angina pectoris 12/01/2022 Syncope 05/26/2022 [...] -Needs to be established with a local spinning lathe operator hydraulic and PCP to resume her medications Cerebrovascular [...] Liu. Will schedule for diagnostic cath at [facility]. I sent a prescription for nitroglycerin to [...] (05/26/2022 7:04 PM EDT): As above, prior [place] x2, last 4 years ago at which time she had multiple stents placed. Prior spinning lathe operator hydraulic in [place]. No recent episodes of chest pain or [...] sliding scale with meals and nightly with fxpcp-ht-qymq glucose monitoring 4 times daily -Constant carbohydrate [...] resolved by the time of admission. Cristina haiedr called in the emergency department. CT/CTA of the head showed her chronic deficits as described below and neurology consult. Case discussed with [facility] neurology acute stroke team. Note reviewed with [...] -TTE, telemetry, 30 day heart monitor at [place] and neuro follow up Immunizations Immunization Administration [...] End Date Used to work in a [employer], now retired Not on file Not on [...] Description 01/17/2025 3:30 PM EST Office Visit [facility] [address] [place] [address] 3rd Floor, [address] [place] [address] Radha Hay, [place] [address] [facility], [address] [place] [address] [email or web address] Health Maintenance Due Date Last Done Comments [...] HEMOGLOBIN A1C 7.0(H) 4.3 - 5.8 % [facility] Blood 07/16/2024 3:16 PM EDT 07/16/2024 3:20 PM EDT us Radha Hay DNP LAB BLOOD ORDERABLES Final Result [address] [address] from Last 3 Months or Most Recently Relevant to Health Maintenance Insurance B MEDICARE PART A & B B [facility]IC[facility] PART [facility] & [facility] B [place] MEDICARE PART A & [facility] B Advance Directives For more information, please contact: [phone] (9AM - 5PM [facility], Monday-Monday) * Full Code (Latest Code Status on File) Date Activated Date Inactivated Comments 05/26/2022 6:57 PM Question Answer Comments Code Status Confirmed With: Patient Care Teams Resident Associate Relationship Specialty Start Date End Date Nicholas Dunlap MD [address] [place] [address] [place] [address] PCP - General Internal Medicine 11/22/23 Additional Source Comments The information contained in this document represents components of the legal health record. It is not the complete legal health record.[facility]
--- OUTSIDE RECORDS SUMMARY | 2024-11-27 10:15 | XMS_ITS | Encounter Summary ---
Author Organization [facility] Address [address] [place] [address] Phone Care Team Providers Care Card Mounter Name Role Phone Pcp, Unknown Primary Care Provider Larisa Guidry REPAIRER PUMP Primary Care Prov ider Nicholas Dunlap MD Primary Care Provider [phone] [phone] Encounter Details Date Type Department Care Team (Late st Contact Info) Description 05/26/2022 Procedure Pass [facility], Ct Scan - [facility] [address] [place] [address] Social History Tobacco Use Types Packs/Day Years [...] End Date Used to work in a [employer], now retired Not on file Not on file Not on file documented as of this encounter Functional Status * Calculated C-SSRS Risk Score (Lifetime/Recent) Answer Date of Assessment Author No Risk Indicated 05/26/2022 2:07 PM MARIET Vikram Lira RN * [place] Suicide Severity Rating Scale (Screener/Recent Self-Report) Question Answer Date of Assessment Author 1. Wish to be (Past 1 Month) No 023 2:07 PM Dori eG RN 2. Non-Specific Active Suici christiano Thoughts (Past 1 Month) No 05/26/2022 2:07 PM EDT Britta Lira RN 6. Suicidal Behavior (Lifetime) No 2:07 PM EDT Dori Lira RN documented as of this encounter Plan of Treatment Upcoming Encounters Date Type Department Care Team (Late st Contact Info) Description 01/17/2025 3:30 PM EST Office Visit [facility] [address] 3rd Floor, [address] [place] [address] Radha Hay, ADRIEL 22 [facility], [address] [place], [place] [id number] [email or web address] documented as of this encounter Visit Diagnoses Not on filedocumented in this encounter Care Teams Card Mounter Relationship Specialty Start Date End Date Pcp, Unknown PCP - General 05/26/22 12/01/22 Larisa Amato FNP [address] [place] [address] Dr [address] [place] [address] PCP - General Family Medicine 01/13/23 11/21/23 Nicholas Dunlap MD [address] [place] [address] Dr [address]mu[address] [place] [address] PCP - General Internal Medicine 11/22/23 documented as of this encounter Additional Source Comments The information contained in this document represents components of the legal health record. It is not the complete legal health record.[facility]
--- OUTSIDE RECORDS SUMMARY | 2024-11-27 10:15 | XMS_ITS | Encounter Summary ---
Author Organization [facility] Address [address] [place] [address] Phone Care Team Providers Care Mine Captain Name Role Phone Pcp, Unknown Primary Care Provider Larisa Guidry REGISTERED PHLEBOTOMIST PART TIME Primary Care Prov ider Nicholas Dunlap MD Primary Care Provider [phone] [phone] Encounter Details Date Type Department Care Team (Late st Contact Info) Description 05/26/2022 Procedure Pass [facility], [address] [address] Social History Tobacco Use Types Packs/Day Years [...] End Date Used to work in a [employer], now retired Not on file Not on file Not on file documented as of this encounter Functional Status * Calculated C-SSRS Risk Score (Lifetime/Recent) Answer Date of Assessment Author No Risk Indicated 05/26/2022 2:07 PM MARIET Vikram Lira RN * [place] Suicide Severity Rating Scale (Screener/Recent Self-Report) Question [...] Description 01/17/2025 3:30 PM EST Office Visit [facility] [address] [facility] 3rd Floor, [address] [place], [place] [id number] Radha Hay, ADRIEL 22 [facility], [address] [place], [place] [address] [email or web address] documented as of this encounter Visit Diagnoses Not on filedocumented in this encounter Care Teams Mine Captain Relationship Specialty Start Date End Date Pcp, Unknown PCP - General 05/26/22 12/01/22 Larisa Amato FNP [address] [place] [address] Dr [address] [place] [address] PCP - General Family Medicine 01/13/23 11/21/23 Nicholas Dunlap MD [address] [place] [address] Dr Hasmukh [address] [place] [address] PCP - General Internal Medicine 11/22/23 documented as of this encounter Additional Source Comments The information contained in this document represents components of the legal health record. It is not the complete legal health record.[facility]
--- OUTSIDE RECORDS SUMMARY | 2024-11-27 10:15 | XMS_ITS | Encounter Summary ---
Author Organization [facility] Address [address] [place] [address] Phone Care Team Providers Care Hostel Parent Name Role Phone Pcp, Unknown Primary Care Provider Larisa Guidry MECHANICAL METER TESTER Primary Care Prov ider Nicholas Dunlap MD Primary Care Provider [phone] [phone] Encounter Details Date Type Department Care Team (Late Contact Info) Description 05/27/2022 Procedure Pass [facility] [address] [place] [address] Social History Tobacco Use Types Packs/Day Years [...] End Date Used to work in a [employer], now retired Not on file Not on file Not on file documented as of this encounter Plan of Treatment Upcoming Encounters Date Type Department Care Team (Late Contact Info) Description 01/17/2025 3:30 PM EST Office Visit [facility] [address] [facility] 3rd Floor, [address] [place] [address] Radha Hay, ADRIEL 22 [facility], [address] [place] [address] [email or web address] documented as of this encounter Visit Diagnoses Not on filedocumented in this encounter Care Teams Hostel Parent Relationship Specialty Start Date End Date Pcp, Unknown PCP - General 05/26/22 12/01/22 Larisa Amato FNP [address] [place] [address] Dr Matos [address] [place] [address] PCP - General Family Medicine 01/13/23 11/21/23 Nicholas Dunlap MD [address] [place] [address] [address] [place] [address] PCP - General Internal Medicine 11/22/23 documented as of this encounter Additional Source Comments The information contained in this document represents components of the legal health record. It is not the complete legal health record.[facility]
--- OUTSIDE RECORDS SUMMARY | 2024-11-27 10:15 | XMS_ITS | Encounter Summary ---
Author Organization [facility] Address [address] [facility] [facility] [address] [place] [address] Phone Care Team Providers Care Manager Strategic Development Name Role Phone Pcp, Unknown Primary Care Provider Larisa Guidry INVESTMENT TRADER Primary Care Prov ider Nicholas Dunlap MD Primary Care Provider [phone] [phone] Encounter Details Date Type Department Care Team (Late st Contact Info) Description 12/01/2022 Procedure Pass [facility] [address] [place] [address] Social History Tobacco Use Types Packs/Day Years [...] End Date Used to work in a [employer], now retired Not on file Not on file Not on file documented as of this encounter Plan of Treatment Upcoming Encounters Date Type Department Care Team (Late st Contact Info) Description 01/17/2025 3:30 PM EST Office Visit [facility] [address] [facility] 3rd Floor, [address] [place] [address] Radha Hay, ADRIEL 22 [facility], [address] [place] [address] [email or web address] documented as of this encounter Visit Diagnoses Not on filedocumented in this encounter Care Teams Manager Strategic Development Relationship Specialty Start Date End Date Pcp, Unknown PCP - General 05/26/22 12/01/22 Larisa Amato FNP [address] [place] [address] [place] [address] PCP - General Family Medicine 01/13/23 11/21/23 Nicholas Dunlap MD [address] [place] [address] Dr Hasmukh [address] [place] [address] PCP - General Internal Medicine 11/22/23 documented as of this encounter Additional Source Comments The information contained in this document represents components of the legal health record. It is not the complete legal health record.[facility]
== END 2024-11-27 10:05 | disposition home or self-care (01) ==
LOC: HO.HKAS 09:14
PROVIDERS: PCP Internal Medicine; Visit Provider Internal Medicine Critical Care Medicine
DX: I10 Essential (primary) hypertension (principal); E78.00 Pure hypercholesterolemia, unspecified; I25.10 Atherosclerotic heart disease of native coronary artery without angina pectoris
CPT/HCPCS: 99214

== ENCOUNTER 2024-12-17 07:12 | Outpatient (REF) | payer MEDICARE, MEDICAID, SELFPAY ==
--- NOTE | ~2024-12-17 | FL_ITS ---
EXAMINATION: FL GUIDANCE ONLY HISTORY: M47.817 - Spondylosis without myelopathy or radiculopathy, lumbosacral... COMPARISON: None available. TECHNIQUE: Fluoroscopy time: 37 seconds. Cumulative Dose: 13.30 mGy. DAP: 2535.60 mGycm2 Images: 11. FINDINGS: Fluoroscopic spot films of the lumbar spine in the AP projection demonstrate needles and contrast material in the regions of the bilateral L3-4, L4-5, and L5-S1 facet joints. FL/FL guidance in treatment room IMPRESSION: Fluoroscopy during procedure. Please see procedure report for additional information. Electronically signed by: Mahesh Jiang MD 12/17/2024 03:41 PM EST
--- OUTSIDE RECORDS SUMMARY | 2024-12-17 07:15 | XMS_ITS | Clinical Summary ---
Author Organization [facility] Address [address] [facility] [address] [place] [address] Phone Care Team Providers Care Forensic Psychiatrist Name Role Phone Nicholas Dunlap MD Primary Care Provider [phone] [phone] Allergies No known active allergies Medications aspirin [...] MG SL tabletIndication s:Coronary artery disease involving [place]uzinkie coronary artery of ouzinkie heart without angina pectoris Place 1 tablet [...] Diagnosed Date Coronary artery disease invo lving ouzinkie coronary artery of ouzinkie heart without angina pectoris 12/01/2022 Syncope 05/26/2022 [...] -Needs to be established with a local kiln labourer and PCP to resume her medications Cerebrovascular [...] schedule for diagnostic cath at [facility]. I sent a prescription for [...] (05/26/2022 7:04 PM EDT): As above, prior MS x2, last 4 years ago at which time she had multiple stents placed. 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 No recent episodes of chest pain or [...] sliding scale with meals and nightly with [id number] glucose monitoring 4 times daily -Constant carbohydrate [...] below and neurology consult. Case discussed with [facility] neurolog[facility] acute stroke team. Note reviewed with [...] -TTE, telemetry, 30 day heart monitor at id and neuro follow up Immunizations Immunization Administration [...] End Date Used to work in a [employer], now retired Not on file Not on [...] Description 01/17/2025 3:30 PM EST Office Visit [facility] [address] [place] [address] 3rd Floor, [address] [place] [address] Radha Hay, [facility] [address] [facility], [address] [place] [address] [email or web address] Health Maintenance Due Date Last Done Comments [...] HEMOGLOBIN A1C 7.0(H) 4.3 - 5.8 % [facility] Blood 07/16/2024 3:16 PM EDT 07/16/2024 3:20 PM EDT us Radha Hay DNP LAB BLOOD BKR ORDERABLES F inal Result [address] [address] from Last 3 Months or Most Recently Relevant to Health Maintenance Insurance [facility] MED[facility] PART A & B [facility] MED[employer] PART A & B Member Subscriber Plan / Payer (Ef fective 2023-) Name:PowerLynne Member ID:[id number] Relation to Subscriber:Self Name:Lynne Power Subscriber ID:[id number] Payer ID:[id number] Group ID:Not on file Type:Medicare Address: [employer] [address] [facility] MED[facility] PART A & B [facility] MEDICARE PART A & B B MEDICARE PART A & B [facility] MED[facility] PART A & B Advance Directives For more information, please contact: [phone] (9AM - 5PM [facility], Monday-Monday) * Full Code (Latest Code Status on File) Date Activated Date Inactivated Comments 05/26/2022 6:57 PM Question Answer Comments Code Status Confirmed With: Patient Care Teams Forensic Psychiatrist Relationship Specialty Start Date End Date Nicholas Dunlap MD [address] [place] [address] [place] [address] PCP - General Internal Medicine 11/22/23 Additional Source Comments The information contained in this document represents components of the legal health record. It is not the complete legal health record.[facility]
--- OUTSIDE RECORDS SUMMARY | 2024-12-17 07:15 | XMS_ITS | Encounter Summary ---
Author Organization [facility] Address [address] [facility] [address] [place] [address] Phone Care Team Providers Care Control Valve Mechanic Name Role Phone Pcp, Unknown Primary Care Provider Larisa Guidry MEDICAL SCIENTIFIC LIAISON Primary Care Prov ider Nicholas Dunlap MD Primary Care Provider [phone] [phone] Encounter Details Date Type Department Care Team (Late st Contact Info) Description 05/26/2022 Procedure Pass [facility], [address] [address] Social History Tobacco Use Types Packs/Day Years [...] End Date Used to work in a [employer], now retired Not on file Not on file Not on file documented as of this encounter Functional Status * Calculated C-SSRS Risk Score (Lifetime/Recent) Answer Date of Assessment Author No Risk Indicated 05/26/2022 2:07 PM MARIET Vikram Lira RN * [place] Suicide Severity Rating Scale (Screener/Recent Self-Report) Question [...] Description 01/17/2025 3:30 PM EST Office Visit [facility] [address] [facility] 3rd Floor, [address] [place], [place] [address] Radha Hay, ADRIEL 22 [facility], [address] [place], [place] [address] [email or web address] documented as of this encounter Visit Diagnoses Not on filedocumented in this encounter Care Teams Control Valve Mechanic Relationship Specialty Start Date End Date Pcp, Unknown PCP - General 05/26/22 12/01/22 Larisa Amato FNP [address] [place] [address] Dr [address] [place] [address] PCP - General Family Medicine 01/13/23 11/21/23 Nicholas Dunlap MD [address] [place] [address] Dr Hasmukh [address] [place] [address] PCP - General Internal Medicine 11/22/23 documented as of this encounter Additional Source Comments The information contained in this document represents components of the legal health record. It is not the complete legal health record.[facility]
--- OUTSIDE RECORDS SUMMARY | 2024-12-17 07:15 | XMS_ITS | Encounter Summary ---
Author Organization [facility] Address [address] [facility] [address] [place] [address] Phone Care Team Providers Care Element Burner Name Role Phone Pcp, Unknown Primary Care Provider Larisa Guidry SLIME PLANT OPERATOR Primary Care Prov ider Nicholas Dunlap MD Primary Care Provider [phone] [phone] Encounter Details Date Type Department Care Team (Late st Contact Info) Description 12/01/2022 Procedure Pass [facility] [address] [place] [address] Social History Tobacco Use Types Packs/Day Years [...] End Date Used to work in a [employer], now retired Not on file Not on file Not on file documented as of this encounter Plan of Treatment Upcoming Encounters Date Type Department Care Team (Late st Contact Info) Description 01/17/2025 3:30 PM EST Office Visit [facility] [address] [facility] 3rd Floor, [address] [place] [address] Radah Hay, ADRIEL 22 [facility], [address] [place] [address] [email or web address] documented as of this encounter Visit Diagnoses Not on filedocumented in this encounter Care Teams Element Burner Relationship Specialty Start Date End Date Pcp, Unknown PCP - General 05/26/22 12/01/22 Larisa Amato FNP [address] [place] [address] [place] [address] PCP - General Family Medicine 01/13/23 11/21/23 Nicholas Dunlap MD [address] [place] [address] Dr Hasmukh [address] [place] [address] PCP - General Internal Medicine 11/22/23 documented as of this encounter Additional Source Comments The information contained in this document represents components of the legal health record. It is not the complete legal health record.[facility]
--- OUTSIDE RECORDS SUMMARY | 2024-12-17 07:15 | XMS_ITS | Encounter Summary ---
Author Organization [facility] Address [address] [place] [address] Phone Care Team Providers Care Executive Director Global Brand Marketing Name Role Phone Pcp, Unknown Primary Care Provider Larisa Guidry DOT NET ARCHITECT Primary Care Prov ider Nicholas Dunlap MD Primary Care Provider [phone] [phone] Encounter Details Date Type Department Care Team (Late st Contact Info) Description 05/26/2022 Procedure Pass [facility], Ct Scan - [facility] 30 [place] [address] Social History Tobacco Use Types Packs/Day Years [...] End Date Used to work in a [employer], now retired Not on file Not on file Not on file documented as of this encounter Functional Status * Calculated C-SSRS Risk Score (Lifetime/Recent) Answer Date of Assessment Author No Risk Indicated 05/26/2022 2:07 PM MARIET Vikram Lira RN * [place] Suicide Severity Rating Scale (Screener/Recent Self-Report) Question [...] Description 01/17/2025 3:30 PM EST Office Visit [facility] [address] 3rd Floor, [address] [place] [address] Radha Hay, ADRIEL [address] [facility], [address] [place], [place] [phone] [email or web address] documented as of this encounter Visit Diagnoses Not on filedocumented in this encounter Care Teams Executive Director Global Brand Marketing Relationship Specialty Start Date End Date Pcp, Unknown PCP - General 05/26/22 12/01/22 Larisa Amato FNP [address] [place] [address] Dr [address] [place] [address] PCP - General Family Medicine 01/13/23 11/21/23 Nicholas Dunlap MD [address] [place] [address] Dr Hasmukh [address] [place] [address] PCP - General Internal Medicine 11/22/23 documented as of this encounter Additional Source Comments The information contained in this document represents components of the legal health record. It is not the complete legal health record.[facility]
--- OUTSIDE RECORDS SUMMARY | 2024-12-17 07:15 | XMS_ITS | Encounter Summary ---
Author Organization [facility] Address [address] [place] [address] Phone Care Team Providers Care Preschool Assistant Teacher Name Role Phone Pcp, Unknown Primary Care Provider Larisa Guidry REGULATORY LEADER Primary Care Prov ider Nicholas Dunlap MD Primary Care Provider [phone] [phone] Encounter Details Date Type Department Care Team (Late st Contact Info) Description 05/26/2022 Procedure Pass [facility], Ct Scan - [facility] [address] [place] [address] Social History Tobacco Use Types Packs/Day Years [...] End Date Used to work in a [employer], now retired Not on file Not on file Not on file documented as of this encounter Functional Status * Calculated C-SSRS Risk Score (Lifetime/Recent) Answer Date of Assessment Author No Risk Indicated 05/26/2022 2:07 PM MARIET Vikram Lira RN * [place] Suicide Severity Rating Scale (Screener/Recent Self-Report) Question [...] Description 01/17/2025 3:30 PM EST Office Visit [facility] [address] 3rd Floor, [address] [place] [address] Radha Hay, ADRIEL [address] [facility], [address] [place], [place] [phone] [email or web address] documented as of this encounter Visit Diagnoses Not on filedocumented in this encounter Care Teams Preschool Assistant Teacher Relationship Specialty Start Date End Date Pcp, Unknown PCP - General 05/26/22 12/01/22 Larisa Amato FNP [address] [place] [address] Dr [address] [place] [address] PCP - General Family Medicine 01/13/23 11/21/23 Nicholas Dunlap MD [address] [place] [address] Dr [address]mukh [address] [place] [address] PCP - General Internal Medicine 11/22/23 documented as of this encounter Additional Source Comments The information contained in this document represents components of the legal health record. It is not the complete legal health record.[facility]
--- OUTSIDE RECORDS SUMMARY | 2024-12-17 07:15 | XMS_ITS | Encounter Summary ---
Author Organization [facility] Address [address] [facility] [address] [place] [address] Phone Care Team Providers Care Research And Evaluation Analyst Name Role Phone Pcp, Unknown Primary Care Provider Larisa Guidry AGENCY LEGAL COUNSEL Primary Care Prov ider Nicholas Dunlap MD Primary Care Provider [phone] [phone] Encounter Details Date Type Department Care Team (Late st Contact Info) Description 05/26/2022 Procedure Pass [facility] [address] [place] [address] Social History Tobacco Use Types Packs/Day Years [...] End Date Used to work in a [employer], now retired Not on file Not on file Not on file documented as of this encounter Functional Status * Calculated C-SSRS Risk Score (Lifetime/Recent) Answer Date of Assessment Author No Risk Indicated 05/26/2022 2:07 PM Vikram Ge RN * [place] Suicide Severity Rating Scale (Screener/Recent Self-Report) Question [...] Description 01/17/2025 3:30 PM EST Office Visit [facility] [address] [facility] 3rd Floor, [address] [place], [place] [phone] Radha Hay, ADRIEL 22 [facility], [address] [place] [address] [email or web address] documented as of this encounter Visit Diagnoses Not on filedocumented in this encounter Care Teams Research And Evaluation Analyst Relationship Specialty Start Date End Date Pcp, Unknown PCP - General 05/26/22 12/01/22 Larisa Amato FNP [address] [place] [address] [address] [place] [address] PCP - General Family Medicine 01/13/23 11/21/23 Nicholas Dunlap MD [address] [place] [address] Dr Hasmukh [address] [place] [address] PCP - General Internal Medicine 11/22/23 documented as of this encounter Additional Source Comments The information contained in this document represents components of the legal health record. It is not the complete legal health record.[facility]
--- OUTSIDE RECORDS SUMMARY | 2024-12-17 07:15 | XMS_ITS | Encounter Summary ---
Author Organization [facility] Address [address] [facility] [address] [place] [address] Phone Care Team Providers Care Pattern Stamper Name Role Phone Pcp, Unknown Primary Care Provider Larisa Guidry MANIFOLD OPERATOR Primary Care Prov ider Nicholas Dunlap MD Primary Care Provider [phone] [phone] Encounter Details Date Type Department Care Team (Late Contact Info) Description 05/27/2022 Procedure Pass Non-Invasive Cardiology 30 [place] [address] Social History Tobacco Use Types Packs/Day Years [...] End Date Used to work in a [employer], now retired Not on file Not on file Not on file documented as of this encounter Plan of Treatment Upcoming Encounters Date Type Department Care Team (Late Contact Info) Description 01/17/2025 3:30 PM EST Office Visit [facility] [address] [facility] 3rd Floor, [address] [place] [address] Radha Hay, ADRIEL [address] [facility], [address] [place] [address] [email or web address] documented as of this encounter Visit Diagnoses Not on filedocumented in this encounter Care Teams Pattern Stamper Relationship Specialty Start Date End Date Pcp, Unknown PCP - General 05/26/22 12/01/22 Larisa Amato FNP [address] [place] [address] Dr Matos [address] [place] [address] PCP - General Family Medicine 01/13/23 11/21/23 Nicholas Dunlap MD [address] [place] [address] [address] [place] [address] PCP - General Internal Medicine 11/22/23 documented as of this encounter Additional Source Comments The information contained in this document represents components of the legal health record. It is not the complete legal health record.[facility]
== END 2024-12-17 07:13 | disposition home or self-care (01) ==
LOC: CF 07:12
PROVIDERS: Visit Provider Anesthesiology
DX: M47.817 Spondylosis without myelopathy or radiculopathy, lumbosacral region (principal)
CPT/HCPCS: 64493; 64494; J2003; J2795; Q9967

== ENCOUNTER 2024-12-17 14:08 | Outpatient (AMB) | payer MEDICARE, MEDICAID, SELFPAY ==
[2024-12-17 14:30] VITALS: BP 106/57; PULSE 60; RESP 16; O2SAT 96
--- NOTE | 2024-12-17 14:30 | A.OFFVIS_ITS ---
Vital Signs 12/17/24 14:30 12/17/24 14:58 BP 106/57 L 101/57 L Blood Pressure Location Lt brachial Lt brachial Position Sitting Sitting Respiration 16 16 Pulse 60 62 Pulse Source Pulse Oximeter Pulse Oximeter Pulse Oximetry (%) 96 97 Oxygen Delivery Method Room Air Room Air Intake Visit Reasons: Bilateral Diagnostic L3-L4-DR L5 MBB Allergies No Known Allergies Allergy (Verified 11/27/24 09:29) [facility] Medical History (Updated 10/16/24 @ 07:47 by VAISHNAVI Linton) Former smoker CVA (cerebral vascular accident) Primary osteoarthritis of left hip Chronic kidney disease, stage III (moderate) Obesity (BMI 30-39.9) GERD without esophagitis Peripheral neuropathy Vitamin D deficiency Mixed hyperlipidemia Essential hypertension Diabetes mellitus Coronary artery disease Gout Myocardial infarction Surgical History Hx of section History of coronary angioplasty with insertion of stent H/O removal of cyst Family History Mother No problems noted. Father Alzheimer disease Brother No problems noted. Daughter No problems noted. Son No problems noted. Son No problems noted. Social History Household Members: Other Housing: Apartment Alcohol intake: never Patient Tobacco Use Status: Former Tobacco user Tobacco use type: Cigarette e-Cigarette/Vaping Use: Former Use Second Hand Smoke Exposure: No Current occupational status: unemployed Cognitive needs: No Hearing needs: No Vision needs: Yes Physical Exam Vital Signs: Last Vital Signs Pulse 62 12/17/24 14:58 Resp 16 12/17/24 14:58 BP 101/57 L 12/17/24 14:58 Pulse Ox 97 12/17/24 14:58 Oxygen Delivery Method Room Air 12/17/24 14:58 Assessment & Plan Assessment & Plan (1) Lumbosacral spondylosis: Code(s): M47.817 - Spondylosis without myelopathy or radiculopathy, lumbosacral region Category: Medical Plan Bilateral diagnostic medial branch block L3, L4, dorsal ramus L5. Lynne is very pleasant 64 years old female who came today into the operating room to receive diagnostic medial branch block as above. She was explained informed consent were risks and benefits were delineated. She came to the operating room and was positioned prone on operating table. The lower back and upper buttocks were prepped with ChloraPrep and draped with sterile self adhesive utility towels. C-arm was brought over the operating field and sq picture of the lower lumbar spine was demonstrated on the screen. The point of interest were delineated as confluence of the silhouette of the superior articular process of L4 and L5 vertebra bilaterally with transfer process bilaterally as well as confluence of the superior articular process of S1 with sacral ala bilaterally. The projection of the point of interest to the skin was injected with small amount of mixture of lidocaine 2% and ropivacaine 0.5%. After that 22 gauge 3-1/2 inch needle was driven sequentially to the point of interest in tunnel vision fashion. When tip of the needle gently contacted the bone injection of the contrast was performed delineating no intravascular and no intrathecal spread of the contrast. After that injection of the treatment solution of ropivacaine 0.5% no more than 1 mL into each needle location was performed. Upon completion of the injections needle removed and Band-Aid was a pplied. The patient tolerated the procedure well. Orders: Orders FL guidance in treatment room 12/17/24 M47.817 - Spondylosis without myelopathy or radiculopathy, lumbosacral region Coding Level of Care Code Procedure Only Diagnoses Lumbosacral spondylosis M47.817
[2024-12-17 14:58] VITALS: BP 101/57; PULSE 62; RESP 16; O2SAT 97
--- OUTSIDE RECORDS SUMMARY | 2024-12-17 17:10 | XMS_ITS | Encounter Summary ---
Author Organization [facility] Address [address] [place] [address] Phone Care Team Providers Care Bottle Feeder Name Role Phone Pcp, Unknown Primary Care Provider Larisa Guidry QUALITY ANALYST Primary Care Prov ider Nicholas Dunlap MD Primary Care Provider [phone] Encounter Details Date Type Department Care Team (Late st Contact Info) Description 05/26/2022 Procedure Pass [facility] [address] [place] [address] Social History Tobacco Use Types Packs/Day Years [...] End Date Used to work in a [employer], now retired Not on file Not on file Not on file documented as of this encounter Functional Status * Calculated C-SSRS Risk Score (Lifetime/Recent) Answer Date of Assessment Author No Risk Indicated 05/26/2022 2:07 PM Vikram Ge RN * [place] Suicide Severity Rating Scale (Screener/Recent Self-Report) Question [...] Description 01/17/2025 3:30 PM EST Office Visit [facility] [address]rd Floor, [address] [place], [place] [id number] Radha Hay, ADRIEL [address], [address] [place] [address] [email or web address] documented as of this encounter Visit Diagnoses Not on filedocumented in this encounter Care Teams Bottle Feeder Relationship Specialty Start Date End Date Pcp, Unknown PCP - General 05/26/22 12/01/22 Larisa Amato FNP [address] [place] [address] [address] [place] [address] PCP - General Family Medicine 01/13/23 11/21/23 Nicholas Dunlap MD [address] [place] [address] Dr Hasmukh [address] [place] [address] PCP - General Internal Medicine 11/22/23 documented as of this encounter Additional Source Comments The information contained in this document represents components of the legal health record. It is not the complete legal health record.[facility]
--- OUTSIDE RECORDS SUMMARY | 2024-12-17 17:10 | XMS_ITS | Encounter Summary ---
Author Organization [facility] Address [address] [place] [address] Phone Care Team Providers Care Snuff Grinder And Screener Name Role Phone Pcp, Unknown Primary Care Provider Larisa Guidry SUSTAINABLE COMMUNITIES DESIGNER Primary Care Prov ider Nicholas Dunlap MD Primary Care Provider [phone] Encounter Details Date Type Department Care Team (Late st Contact Info) Description 05/26/2022 Procedure Pass [facility], [address] [address] Social History Tobacco Use Types Packs/Day Years [...] End Date Used to work in a [employer], now retired Not on file Not on file Not on file documented as of this encounter Functional Status * Calculated C-SSRS Risk Score (Lifetime/Recent) Answer Date of Assessment Author No Risk Indicated 05/26/2022 2:07 PM MARIET Vikram Lira RN * [place] Suicide Severity Rating Scale (Screener/Recent Self-Report) Question [...] Description 01/17/2025 3:30 PM EST Office Visit [facility] [address] [facility] 3rd Floor, [address] [place], [place] [id number] Radha Hay, ADRIEL [address], [address] [place], [place] [id number] [email or web address] documented as of this encounter Visit Diagnoses Not on filedocumented in this encounter Care Teams Snuff Grinder And Screener Relationship Specialty Start Date End Date Pcp, Unknown PCP - General 05/26/22 12/01/22 Larisa Amato FNP [address] [place] [address] Dr [address] [place] [address] PCP - General Family Medicine 01/13/23 11/21/23 Nicholas Dunlap MD [address] [place] [address] Dr Hasmukh [address] [place] [address] PCP - General Internal Medicine 11/22/23 documented as of this encounter Additional Source Comments The information contained in this document represents components of the legal health record. It is not the complete legal health record.[facility]
--- OUTSIDE RECORDS SUMMARY | 2024-12-17 17:10 | XMS_ITS | Encounter Summary ---
Author Organization [facility] Address [address] [place] [address] Phone Care Team Providers Care Marketing Assistant Retail Division Name Role Phone Pcp, Unknown Primary Care Provider Larisa Guidry PHARMACOEPIDEMIOLOGIST Primary Care Prov ider Nicholas Dunlap MD Primary Care Provider [phone] Encounter Details Date Type Department Care Team (Late st Contact Info) Description 05/26/2022 Procedure Pass [facility], Ct Scan - [facility] [address] [place] [address] Social History Tobacco Use Types Packs/Day Years [...] End Date Used to work in a [employer], now retired Not on file Not on file Not on file documented as of this encounter Functional Status * Calculated C-SSRS Risk Score (Lifetime/Recent) Answer Date of Assessment Author No Risk Indicated 05/26/2022 2:07 PM MARIET Vikram Lira RN * [place] Suicide Severity Rating Scale (Screener/Recent Self-Report) Question [...] Description 01/17/2025 3:30 PM EST Office Visit [facility] [address] Floor, [address] [place] [address] Radha Hay, ADRIEL [address] [facility], [address] [place], [place] [phone] [email or web address] documented as of this encounter Visit Diagnoses Not on filedocumented in this encounter Care Teams Marketing Assistant Retail Division Relationship Specialty Start Date End Date Pcp, Unknown PCP - General 05/26/22 12/01/22 Larisa Amato FNP [address] [place] [address] Dr [address] [place] [address] PCP - General Family Medicine 01/13/23 11/21/23 Nicholas Dunlap MD [address] [place] [address] Dr Hasmukh [address] [place] [address] PCP - General Internal Medicine 11/22/23 documented as of this encounter Additional Source Comments The information contained in this document represents components of the legal health record. It is not the complete legal health record.[facility]
--- OUTSIDE RECORDS SUMMARY | 2024-12-17 17:10 | XMS_ITS | Encounter Summary ---
Author Organization [facility] Address [address] [place] [address] Phone Care Team Providers Care Hat Maker Name Role Phone Pcp, Unknown Primary Care Provider Larisa Guidry MASTER COSMETOLOGIST Primary Care Prov ider Nicholas Dunlap MD Primary Care Provider [phone] Encounter Details Date Type Department Care Team (Late st Contact Info) Description 05/26/2022 Procedure Pass [facility], Ct Scan - [facility] [address] [place] [address] Social History Tobacco Use Types Packs/Day Years [...] End Date Used to work in a [employer], now retired Not on file Not on file Not on file documented as of this encounter Functional Status * Calculated C-SSRS Risk Score (Lifetime/Recent) Answer Date of Assessment Author No Risk Indicated 05/26/2022 2:07 PM MARIET Vikram Lira RN * [place] Suicide Severity Rating Scale (Screener/Recent Self-Report) Question [...] Description 01/17/2025 3:30 PM EST Office Visit [facility] [address] Floor, [address] [place] [address] Radha Hay, ADRIEL [address] [facility], [address] [place], [place] [phone] [email or web address] documented as of this encounter Visit Diagnoses Not on filedocumented in this encounter Care Teams Hat Maker Relationship Specialty Start Date End Date Pcp, Unknown PCP - General 05/26/22 12/01/22 Larisa Amato FNP [address] [place] [address] Dr [address] [place] [address] PCP - General Family Medicine 01/13/23 11/21/23 Nicholas Dunlap MD [address] [place] [address] Dr Hasmukh [address] [place] [address] PCP - General Internal Medicine 11/22/23 documented as of this encounter Additional Source Comments The information contained in this document represents components of the legal health record. It is not the complete legal health record.[facility]
--- OUTSIDE RECORDS SUMMARY | 2024-12-17 17:10 | XMS_ITS | Encounter Summary ---
Author Organization [facility] Address [address] [place] [address] Phone Care Team Providers Care Exploration Geologist Name Role Phone Pcp, Unknown Primary Care Provider Larisa Guidry PIPE MAKER Primary Care Prov ider Nicholas Dunlap MD Primary Care Provider [phone] Encounter Details Date Type Department Care Team (Late st Contact Info) Description 12/01/2022 Procedure Pass [facility] [address] [place] [address] Social History Tobacco Use Types Packs/Day Years [...] End Date Used to work in a [employer], now retired Not on file Not on file Not on file documented as of this encounter Plan of Treatment Upcoming Encounters Date Type Department Care Team (Late st Contact Info) Description 01/17/2025 3:30 PM EST Office Visit [facility] [address] 3rd Floor, [address] [place] [address] Radha Hay, ADRIEL [address] [facility], [address] [place] [address] [email or web address] documented as of this encounter Visit Diagnoses Not on filedocumented in this encounter Care Teams Exploration Geologist Relationship Specialty Start Date End Date Pcp, Unknown PCP - General 05/26/22 12/01/22 Larisa Amato FNP [address] [place] [address] [place] [address] PCP - General Family Medicine 01/13/23 11/21/23 Nicholas Dunlap MD [address] [place] [address] Dr Hasmukh [address] [place] [address] PCP - General Internal Medicine 11/22/23 documented as of this encounter Additional Source Comments The information contained in this document represents components of the legal health record. It is not the complete legal health record.[facility]
--- OUTSIDE RECORDS SUMMARY | 2024-12-17 17:10 | XMS_ITS | Encounter Summary ---
Author Organization [facility] Address [address] [place] [address] Phone Care Team Providers Care Hog Man Name Role Phone Pcp, Unknown Primary Care Provider Larisa Guidry GUEST ROOM INSPECTOR Primary Care Prov ider Nicholas Dunlap MD Primary Care Provider [phone] [phone] Encounter Details Date Type Department Care Team (Late Contact Info) Description 05/27/2022 Procedure Pass [facility] [address] [place] [address] Social History Tobacco Use Types Packs/Day Years [...] End Date Used to work in a [employer], now retired Not on file Not on file Not on file documented as of this encounter Plan of Treatment Upcoming Encounters Date Type Department Care Team (Late Contact Info) Description 01/17/2025 3:30 PM EST Office Visit [facility] [address] [facility] 3rd Floor, [address] [place] [address] Radha Hay, ADRIEL [address] [facility] [address] [facility], [address] [place] [address] [email or web address] documented as of this encounter Visit Diagnoses Not on filedocumented in this encounter Care Teams Hog Man Relationship Specialty Start Date End Date Pcp, Unknown PCP - General 05/26/22 12/01/22 Larisa Amato FNP [address] [place] [address] Dr [address] [place] [address] PCP - General Family Medicine 01/13/23 11/21/23 Nicholas Dunlap MD [address] [place] [address] [address] [place] [address] PCP - General Internal Medicine 11/22/23 documented as of this encounter Additional Source Comments The information contained in this document represents components of the legal health record. It is not the complete legal health record.[facility]
--- OUTSIDE RECORDS SUMMARY | 2024-12-17 17:10 | XMS_ITS | Clinical Summary ---
Author Organization [facility] Address [address] [place] [address] Phone Care Team Providers Care Audio Visual Specialist Name Role Phone Nicholas Dunlap MD Primary Care Provider [phone] [phone] Allergies No known active allergies Medications aspirin [...] MG SL tabletIndication s:Coronary artery disease involving ute mountain coronary artery of ute mountain heart without angina pectoris Place 1 tablet [...] Diagnosed Date Coronary artery disease invo lving ute mountain coronary artery of ute mountain heart without angina pectoris 12/01/2022 Syncope 05/26/2022 [...] -Needs to be established with a local diabetes education coordinator and PCP to resume her medications Cerebrovascular [...] schedule for diagnostic cath at [facility]. I sent a prescription for nitroglycerin [...] (05/26/2022 7:04 PM EDT): As above, prior ME x2, last 4 years ago at which time she had multiple stents placed. Prior diabetes education coordinator in [place]. No recent episodes of chest pain or [...] sliding scale with meals and nightly with ifywu-oq-[id number] glucose monitoring 4 times daily -Constant carbohydrate [...] below and neurology consult. Case discussed with [facility] neurolog[facility] acute stroke team. Note reviewed with [...] -TTE, telemetry, 30 day heart monitor at [place] and neuro follow up Immunizations Immunization Administration [...] End Date Used to work in a [employer], now retired Not on file Not on [...] Description 01/17/2025 3:30 PM EST Office Visit [facility] [address] [place] [address] 3rd Floor, [address] [place] [address] Radha Hay, [facility] [address] [facility], [address] [place] [address] [email or web address] Health Maintenance Due Date Last Done Comments [...] HEMOGLOBIN A1C 7.0(H) 4.3 - 5.8 % [facility] Blood 07/16/2024 3:16 PM EDT 07/16/2024 3:20 PM EDT us Radha Hay DNP LAB BLOOD BKR ORDERABLES F inal Result [address] [address] from Last 3 Months or Most Recently Relevant to Health Maintenance Insurance [facility] B Member Subscriber Plan / Payer (Ef fective 2023-) Name:PowerLynne Member ID:[id number] Relation to Subscriber:Self Name:Lynne Power Subscriber ID:[id number] Payer ID:[id number] Group ID:Not on file Type:Medicare Address: [employer] [address] [facility] B [facility] B B MEDICARE PART A & B [facility] B Advance Directives For more information, please contact: [phone] (9AM - 5PM [facility], Monday-Monday) * Full Code (Latest Code Status on File) Date Activated Date Inactivated Comments 05/26/2022 6:57 PM Question Answer Comments Code Status Confirmed With: Patient Care Teams Audio Visual Specialist Relationship Specialty Start Date End Date Nicholas Dunlap MD [address] [place] [address] [place] [address] PCP - General Internal Medicine 11/22/23 Additional Source Comments The information contained in this document represents components of the legal health record. It is not the complete legal health record.[facility]
== END 2024-12-17 14:59 | disposition home or self-care (01) ==
LOC: HO.PMCPRC 14:08
PROVIDERS: PCP Internal Medicine; Visit Provider Anesthesiology
DX: M47.817 Spondylosis without myelopathy or radiculopathy, lumbosacral region (principal)
CPT/HCPCS: 64493; 64494

== ENCOUNTER 2024-12-19 13:24 | Outpatient (AMB) | payer MEDICARE, MEDICAID, SELFPAY ==
--- NOTE | 2024-12-19 13:41 | MHC.OFFVIS ---
Vital Signs 12/19/24 13:44 Height 5 ft 3 in Weight 190 lb BMI 33.7 BP 117/71 Blood Pressure Location Lt brachial Position Sitting Pulse 82 Pulse Source Pulse Oximeter Pulse Oximetry (%) 100 Oxygen Delivery Method Room Air Intake Visit Reasons: S/P Bilateral Diagnostic L3-L4-DR L5 MBB Intake Note: Pain today 09/22 [employer] Teacher Required: No Accompanied by: Self / Same As Patient Allergies No Known Allergies Allergy (Verified 12/19/24 13:46) HPI Comments Details: The patient is a 64-year-old female presenting with chronic low back pain. She underwent bilateral diagnostic L3, L4, L5 medial branch blocks on December 17, 2024, with Dr. Torres, which provided significant pain relief. The patient reports an 80% reduction in pain, with the pain level decreasing to 2 out of 10, which has persisted since the procedure. The patient also experiences sacroiliac joint pain, which is severe enough to cause difficulty in lifting her leg and walking. She has not had any injections for her leg or hip pain, and the pain in her right leg and hip has become more prominent. Patient reports improved daily functioning and sleep since back injections and is interested to proceed with lumbar radiofrequency ablation as next steps. Denies any recent cough, cold, infection, fever or any significant changes in medical history since last office visit. Past procedures: 12/17/24: Bilateral diagnostic L3-L4 L5 MBB-80% ongoing pain relief x 2 days PRIOR: The patient is a 63-year-old female presenting with chronic lower back pain radiating to both legs. The pain has been persistent for over five years, significantly affecting her daily activities, including sleeping, self-care, and mobility, necessitating the use of a cane and walker. The pain is described as aching, stabbing, burning, with pins and needles sensation, and is exacerbated by movement and weather changes. Back pain primarily radiates today right lower extremity posteriorly and into the heel is chronic neuropathy in both feet. She also reports occasional radiation of pain into right m[place] with intermittent weakness and left knee and lower leg pain with tenderness. Denies recent trauma, injury, or falls. Her x-ray this year revealed facet arthritis primarily at L4-L5 and L5-S1. Despite the chronicity of her symptoms, she has not engaged in physical therapy, citing time constraints and significant pain, although she does ride a stationary bicycle at home. Denies previous spine surgery or injections. The patient has a significant medical history including CVA, CAD s/p cardiac stents x2 on Plavix, chronic kidney disease stage 3, obesity, peripheral neuropathy, diabetes mellitus, gout, myocardial infarction, and a history of smoking. She is currently on gabapentin for neuropathy, which has been ineffective for her back pain, and she avoids NSAIDs due to her kidney condition. Her diabetes is managed with daily blood sugar monitoring, reporting readings of 120-130 mg/dL. - Onset: Chronic pain for over 5 years, worsening for past 2 years - Quality: Aching, stabbing, burning, pins and needles, numbness - Location: Lower back radiating to both legs, worse in the right leg - Exacerbating factors: Movement, weather changes, standing, cooking, washing dishes - Relieving factors: Partial relief with oral medications, heat application - Interference: Affects daily activities, sleep, self-care, requires cane and walker for mobility - Affect: Pain significantly impacts daily activities and quality of life - Analgesia: Current use of gabapentin, ineffective for back pain; pain level 10/10 with movement, 8/10 at rest - Adverse Effects: No specific adverse effects reported from current medications - Activities of Daily Living: Pain interferes with mobility, self-care, and household tasks - Aberrant Drug Related Behaviors: No aberrant behaviors reported [facility] Medical History Former smoker CVA (cerebral vascular accident) Primary osteoarthritis of left hip Chronic kidney disease, stage III (moderate) Obesity (BMI 30-39.9) GERD without esophagitis Peripheral neuropathy Vitamin D deficiency Mixed hyperlipidemia Essential hypertension Diabetes mellitus Coronary artery disease Gout Myocardial infarction Surgical History Hx of section History of coronary angioplasty with insertion of stent H/O removal of cyst Family History Mother No problems noted. Father Alzheimer disease Brother No problems noted. Daughter No problems noted. Son No problems noted. Son No problems noted. Social History Household Members: Other Housing: Apartment Alcohol intake: never Patient Tobacco Use Status: Former Tobacco user Tobacco use type: Cigarette e-Cigarette/Vaping Use: Former Use Second Hand Smoke Exposure: No Current occupational status: unemployed Cognitive needs: No Hearing needs: No Vision needs: Yes Review of Systems Const All systems reviewed & are unremarkable except as noted in HPI and below Physical Exam Vital Signs: Last Vital Signs Pulse 82 12/19/24 13:44 BP 117/71 12/19/24 13:44 Pulse Ox 100 12/19/24 13:44 Oxygen Delivery Method Room Air 12/19/24 13:44 BMI result Body Mass Index 33.7 General: Appears afebrile. Alert and oriented. Mood and affect appropriate. Follows and participates in conversation appropriately. Respiratory effort is unlabored. No cough. Able to transition from sit to stand unassisted. Ambulates with cane. Ambulates with bilaterally normal heel strike and toe off on the left, increased back pain with standing on the toes on the right. Back/Spine/Pelvis Other: Limited lumbar ROM due to pain. Mildly antalgic gait, no limping. No midline tenderness in cervical, thoracic or lumbar spine. Demonstrates 5/5 left and 4/5 right due to hip pain strength of quadriceps bilaterally as well as flexion/dorsiflexion of bilateral feet against resistance. 2+ pedal pulses bilaterally. Straight leg rise with dorsiflexion negative bilaterally. +1 patellar and diminished achilles reflexes bilaterally. Facet loading test positive bilaterally. Kimmy sign, Bharat?s, Pelvic compression and Stinchfield tests are positive bilaterally. Mild to moderate groin pain with I/E hip rotations bilaterally. Difficulty lifting left leg due to hip and knee pain. Valsalva maneuver negative. Cervical Spine: cervical ROM normal, cervical muscular tenderness, No Cervical spine scars present and No Cervical spine tenderness Thoracic/Lumbar Spine: thoracic and lumbar spine normal to inspection, No Thoracic/lumbar spine scar(s), Lasegue's sign positive on the right, pain with thoraco-lumbar ROM, paraspinal muscle tenderness on the right greater than left, thoraco-lumbar ROM limited, No thoracic spinal tenderness and lumbar spinal tenderness (L4-S1) Pelvis: buttock tenderness on the right Sacroiliac joints: bilaterally tender to palpation Extrem General: Yes capillary refill normal, Yes no clubbing, cyanosis or edema and Yes no calf tenderness Left lower extremity: knee (Limited ROM due to pain) Details: normal to inspection, tenderness Location: of the medial joint line and of the lateral joint line and crepitus; no swelling, no ecchymosis, no deformity and no unusual warmth Results Reviewed Results Reviewed: XR lumbar spine 2-3V 03/06/24 CLINICAL HISTORY: M54.50 - Low back pain, unspecified Findings: Normal alignment. No acute fractures or dislocation. No significant loss of intervertebral disc height. Facet osteoarthritis is present at L4-L5 and L5-S1. IMPRESSION: No acute findings. XR hip LT min 2V 03/06/24 CLINICAL HISTORY: M25.552 - Pain in left hip Findings: No acute fracture or dislocation. Mild arthritic change. The soft tissues are unremarkable. IMPRESSION: No acute findings. Assessment & Plan Assessment & Plan (1) Chronic low back pain with sciatica: Code(s): M54.40 - Lumbago with sciatica, unspecified side; G89.29 - Other chronic pain Category: Medical (2) Lumbosacral spondylosis: Code(s): M47.817 - Spondylosis without myelopathy or radiculopathy, lumbosacral region Category: Medical (3) Left knee pain: Code(s): M25.562 - Pain in left knee Category: Medical (4) Primary osteoarthritis of left hip: Code(s): M16.12 - Unilateral primary osteoarthritis, left hip Category: Medical Plan The patient has experienced significant relief from axial, facet mediated low back pain following the bilateral diagnostic medial branch blocks, with an 80% reduction in pain for 2 days. Given the positive response, radiofrequency ablation (RFA) is planned to provide longer-term relief. Schedule Bilateral L3-L4-DR L5 Medial Branch RFA with oral sedation, local and fluoroscopy. Expectations, risks and benefits were reviewed. Patient is aware she will be contacted to schedule this procedure. The patient is advised to complete a knee x-ray to further evaluate the cause of her left knee and leg pain, as mild hip arthritis was noted but is not believed to be the primary cause of her symptoms. If sacroiliac joint pain persists post-RFA, therapeutic injections may be considered. All questions and concerns have been answered and patient agreed with the treatment plan. Follow up after RFA and sooner as needed. Patient was informed and verbally consented to the use of an ambient scribe for clinic note documentation during this visit. Coding Level of Care Code Est Pt Level 3 (15845) Complex EM visit Add On G2211 Diagnoses Chronic low back pain with sciatica M54.40; G89.29 Lumbosacral spondylosis M47.817 Left knee pain M25.562 Primary osteoarthritis of left hip M16.12
[2024-12-19 13:44] VITALS: BP 117/71; PULSE 82; O2SAT 100; BMI 33.7
--- OUTSIDE RECORDS SUMMARY | 2024-12-19 16:17 | XMS_ITS | Encounter Summary ---
Author Organization [facility] Address [address] [place] [address] Phone Care Team Providers Care General Assignment Reporter Name Role Phone Pcp, Unknown Primary Care Provider Larisa Guidry DRUM LOADER AND UNLOADER Primary Care Prov ider Nicholas Dunlap MD Primary Care Provider [phone] Encounter Details Date Type Department Care Team (Late st Contact Info) Description 05/26/2022 Procedure Pass [facility], Ct Scan - [facility] [address] [place] [address] Social History Tobacco Use Types Packs/Day Years [...] End Date Used to work in a [employer], now retired Not on file Not on file Not on file documented as of this encounter Functional Status * Calculated C-SSRS Risk Score (Lifetime/Recent) Answer Date of Assessment Author No Risk Indicated 05/26/2022 2:07 PM MARIET Vikram Lira RN * [place] Suicide Severity Rating Scale (Screener/Recent Self-Report) Question [...] Description 01/17/2025 3:30 PM EST Office Visit [facility] [address] Floor, [address] [place] [address] Radha Hay, ADRIEL [address] [facility], [address] [place], [place] [id number] documented as of this encounter Visit Diagnoses Not on filedocumented in this encounter Care Teams General Assignment Reporter Relationship Specialty Start Date End Date Pcp, Unknown PCP - General 05/26/22 12/01/22 Larisa Amato FNP [address] [place] [address] Dr [address] [place] [address] PCP - General Family Medicine 01/13/23 11/21/23 Nicholas Dunlap MD [address] [place] [address] Dr Hasmukh [address] [place] [address] PCP - General Internal Medicine 11/22/23 documented as of this encounter Additional Source Comments The information contained in this document represents components of the legal health record. It is not the complete legal health record.[facility]
--- OUTSIDE RECORDS SUMMARY | 2024-12-19 16:17 | XMS_ITS | Encounter Summary ---
Author Organization [facility] Address [address] [place] [address] Phone Care Team Providers Care Carpenter Mine Name Role Phone Pcp, Unknown Primary Care Provider Larisa Guidry SCREEN TENDER HELPER Primary Care Prov ider Nicholas Dunlap MD Primary Care Provider [phone] Encounter Details Date Type Department Care Team (Late st Contact Info) Description 12/01/2022 Procedure Pass [facility] [address] [place] [address] Social History Tobacco Use Types Packs/Day Years [...] End Date Used to work in a [employer], now retired Not on file Not on file Not on file documented as of this encounter Plan of Treatment Upcoming Encounters Date Type Department Care Team (Late st Contact Info) Description 01/17/2025 3:30 PM EST Office Visit [facility] [address] [facility] [facility] [address] Floor, [address] [place] [address] Radha Hay, ADRIEL [address] [facility], [address] [place] [address] [email or web address] documented as of this encounter Visit Diagnoses Not on filedocumented in this encounter Care Teams Carpenter Mine Relationship Specialty Start Date End Date Pcp, Unknown PCP - General 05/26/22 12/01/22 Larisa Amato FNP [address] [place] [address] [place] [address] PCP - General Family Medicine 01/13/23 11/21/23 Nicholas Dunlap MD [address] [place] [address] Dr Hasmukh [address] [place] [address] PCP - General Internal Medicine 11/22/23 documented as of this encounter Additional Source Comments The information contained in this document represents components of the legal health record. It is not the complete legal health record.[facility]
--- OUTSIDE RECORDS SUMMARY | 2024-12-19 16:17 | XMS_ITS | Encounter Summary ---
Author Organization [facility] Address [address] [place] [address] Phone Care Team Providers Care Behavioral Health Consultant Name Role Phone Pcp, Unknown Primary Care Provider Larisa Guidry TECH ED/WOODSHOP TEACHER Primary Care Prov ider Nicholas Dunlap MD Primary Care Provider [phone] Encounter Details Date Type Department Care Team (Late st Contact Info) Description 05/26/2022 Procedure Pass [facility], [address] [address] Social History Tobacco Use Types Packs/Day Years [...] End Date Used to work in a [employer], now retired Not on file Not on file Not on file documented as of this encounter Functional Status * Calculated C-SSRS Risk Score (Lifetime/Recent) Answer Date of Assessment Author No Risk Indicated 05/26/2022 2:07 PM MARIET Vikram Lira RN * [place] Suicide Severity Rating Scale (Screener/Recent Self-Report) [...] Description 01/17/2025 3:30 PM EST Office Visit [facility] [address] [facility] [address] Floor, [address] [place], [place] [phone] Radha Hay, ADRIEL 22 [facility], [address] [place], [place] [phone] [email or web address] documented as of this encounter Visit Diagnoses Not on filedocumented in this encounter Care Teams Behavioral Health Consultant Relationship Specialty Start Date End Date Pcp, Unknown PCP - General 05/26/22 12/01/22 Larisa Amato FNP [address] [place] [address] Dr [address] [place] [address] PCP - General Family Medicine 01/13/23 11/21/23 Nicholas Dunlap MD [address] [place] [address] Dr Hasmukh [address] [place] [address] PCP - General Internal Medicine 11/22/23 documented as of this encounter Additional Source Comments The information contained in this document represents components of the legal health record. It is not the complete legal health record.[facility]
--- OUTSIDE RECORDS SUMMARY | 2024-12-19 16:17 | XMS_ITS | Encounter Summary ---
Author Organization [facility] Address [address] [facility] [place] [address] Phone Care Team Providers Care Lever Tender Name Role Phone Pcp, Unknown Primary Care Provider Larisa Guidry RAIL OPERATIONS CONTROLLER Primary Care Prov ider Nicholas Dunlap MD Primary Care Provider [phone] Encounter Details Date Type Department Care Team (Late Contact Info) Description 05/27/2022 Procedure Pass [facility] [address] [place] [address] Social History Tobacco Use Types Packs/Day Years [...] End Date Used to work in a [employer], now retired Not on file Not on file Not on file documented as of this encounter Plan of Treatment Upcoming Encounters Date Type Department Care Team (Late Contact Info) Description 01/17/2025 3:30 PM EST Office Visit [facility] [address] [facility] 3rd Floor, [address] [place] [address] Radha Hay, ADRIEL [address] [facility], [address] [place] [address] [email or web address] documented as of this encounter Visit Diagnoses Not on filedocumented in this encounter Care Teams Lever Tender Relationship Specialty Start Date End Date Pcp, Unknown PCP - General 05/26/22 12/01/22 Larisa Amato FNP [address] [place] [address] Dr Matos [address] [place] [address] PCP - General Family Medicine 01/13/23 11/21/23 Nicholas Dunlap MD [address] [place] [address] Dr [address] [place] [address] PCP - General Internal Medicine 11/22/23 documented as of this encounter Additional Source Comments The information contained in this document represents components of the legal health record. It is not the complete legal health record.[facility]
--- OUTSIDE RECORDS SUMMARY | 2024-12-19 16:17 | XMS_ITS | Encounter Summary ---
Author Organization [facility] Address [address] [place] [address] Phone Care Team Providers Care Rug Dyer Helper Name Role Phone Pcp, Unknown Primary Care Provider Larisa Guidry TIP PRINTER Primary Care Prov ider Nicholas Dunlap MD Primary Care Provider [phone] Encounter Details Date Type Department Care Team (Late st Contact Info) Description 05/26/2022 Procedure Pass [facility], Ct Scan - [facility] [address] [place] [address] Social History Tobacco Use Types Packs/Day Years [...] End Date Used to work in a [employer] now retired Not on file Not on file Not on file documented as of this encounter Functional Status * Calculated C-SSRS Risk Score (Lifetime/Recent) Answer Date of Assessment Author No Risk Indicated 05/26/2022 2:07 PM MARIET Vikram Lira RN * [place] Suicide Severity Rating Scale (Screener/Recent Self-Report) Question [...] Description 01/17/2025 3:30 PM EST Office Visit [facility] [address], [address] [place] [address] Radha Hay, ADRIEL [address] [facility], [address] [place], [place] [phone] [email or web address] documented as of this encounter Visit Diagnoses Not on filedocumented in this encounter Care Teams Rug Dyer Helper Relationship Specialty Start Date End Date Pcp, Unknown PCP - General 05/26/22 12/01/22 Larisa Amato FNP [address] [place] [address] [address] [place] [address] PCP - General Family Medicine 01/13/23 11/21/23 Nicholas Dunlap MD [address] [place] [address] Dr Hasmukh [address] [place] [address] PCP - General Internal Medicine 11/22/23 documented as of this encounter Additional Source Comments The information contained in this document represents components of the legal health record. It is not the complete legal health record.[facility]
--- OUTSIDE RECORDS SUMMARY | 2024-12-19 16:17 | XMS_ITS | Encounter Summary ---
Author Organization [facility] Address [address] [address] [place] [address] Phone Care Team Providers Care Beer Merchant Name Role Phone Pcp, Unknown Primary Care Provider Larisa Guidry IMMERSION METAL CLEANER Primary Care Prov ider Nicholas uDnlap MD Primary Care Provider [phone] Encounter Details Date Type Department Care Team (Late st Contact Info) Description 05/26/2022 Procedure Pass [facility] [address] [place] [address] Social History Tobacco Use Types Packs/Day Years [...] End Date Used to work in a [employer], now retired Not on file Not on file Not on file documented as of this encounter Functional Status * Calculated C-SSRS Risk Score (Lifetime/Recent) Answer Date of Assessment Author No Risk Indicated 05/26/2022 2:07 PM Vikram Ge RN * [place] Suicide Severity Rating Scale (Screener/Recent Self-Report) Question [...] Description 01/17/2025 3:30 PM EST Office Visit [facility] [address] [facility] 3rd Floor, [address] [place], [place] [phone] Radha Hay, ADRIEL [address] [facility], [address] [place] [address] [email or web address] documented as of this encounter Visit Diagnoses Not on filedocumented in this encounter Care Teams Beer Merchant Relationship Specialty Start Date End Date Pcp, Unknown PCP - General 05/26/22 12/01/22 Larisa Amato FNP [address] [place] [address] [address] [place] [address] PCP - General Family Medicine 01/13/23 11/21/23 Nicholas Dunlap MD [address] [place] [address] Dr Hasmukh [address] [place] [id number] PCP - General Internal Medicine 11/22/23 documented as of this encounter Additional Source Comments The information contained in this document represents components of the legal health record. It is not the complete legal health record.[facility]
--- OUTSIDE RECORDS SUMMARY | 2024-12-19 16:17 | XMS_ITS | Clinical Summary ---
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 Will schedule for diagnostic cath at [facility]. I sent a prescription for nitroglycerin to [...] (05/26/2022 7:04 PM EDT): As above, prior [place] x2, last 4 years ago at which time she had multiple stents placed. 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 No recent episodes of chest [...] sliding scale with meals and nightly with [id number]-[id number] glucose monitoring 4 times daily -Constant carbohydrate [...] consult. Case discussed with [facility] acute stroke team. Note reviewed with [...] -TTE, telemetry, 30 day heart monitor at [place] and neuro follow up Immunizations Immunization Administration [...] End Date Used to work in a [employer], now retired Not on file Not on [...] Description 01/17/2025 3:30 PM EST Office Visit [facility] [address] [place] [address] 3rd Floor, [address] [place] [address] Radha Hay, [facility], [address] [place] [address] Health Maintenance Due Date Last Done Comments [...] HEMOGLOBIN A1C 7.0(H) 4.3 - 5.8 % [facility] Blood 07/16/2024 3:16 PM EDT 07/16/2024 3:20 PM EDT us Radha Hay DNP LAB BLOOD BKR ORDERABLES F inal Result [address] [address] from Last 3 Months or Most Recently Relevant to Health Maintenance Insurance [facility] MEDIC[facility] PART A & B Member Subscriber Plan / Payer (Ef fective 2023-) Name:Lynne Power Member ID:[id number] Relation to Subscriber:Self Name:Lynne Power Subscriber ID:[id number] Payer ID:[id number] Group ID:Not on file Type:Medicare Address: [employer] [address] [place] [address] [facility] MEDICARE PART A & B Member Subscriber Plan / Payer (Ef fective 2023-) Name:PowerLynne Member ID:[id number] Relation to Subscriber:Self Name:Lynne Power Subscriber ID:[id number] Payer ID:[id number] Group ID:Not on file Type:Medicare Address: [employer] [address] [facility] MEDICARE PART A & B [facility] MEDICARE PART A & B B MEDICARE PART A & B [facility] MEDICARE PART A & B Advance Directives For more information, please contact: [phone] (9AM - 5PM [facility], Monday-Monday) * Full Code (Latest Code Status on File) Date Activated Date Inactivated Comments 05/26/2022 6:57 PM Question Answer Comments Code Status Confirmed With: Patient Care Teams Nuclear Cardiology Technologist Relationship Specialty Start Date End Date Nicholas Dunlap MD [address] [place] [address] [place] [address] PCP - General Internal Medicine 11/22/23 Additional Source Comments The information contained in this document represents components of the legal health record. It is not the complete legal health record.[facility]
== END 2024-12-19 14:02 | disposition home or self-care (01) ==
LOC: HO.PMC 13:25
PROVIDERS: PCP Internal Medicine; Visit Provider Nurse Practitioner Family
DX: M54.40 Lumbago with sciatica, unspecified side (principal); G89.29 Other chronic pain; M47.817 Spondylosis without myelopathy or radiculopathy, lumbosacral region; M25.562 Pain in left knee; M16.12 Unilateral primary osteoarthritis, left hip
CPT/HCPCS: 99213; G2211

== ENCOUNTER → 2024-12-19 13:24 | Outpatient (BNVA) | payer MEDICARE, MEDICAID, SELFPAY | PROVIDERS: PCP Internal Medicine; Visit Provider Nurse Practitioner Family | DX: M54.40 Lumbago with sciatica, unspecified side (principal); G89.29 Other chronic pain; M47.817 Spondylosis without myelopathy or radiculopathy, lumbosacral region; M25.562 Pain in left knee; M16.12 Unilateral primary osteoarthritis, left hip; Z98.890 Other specified postprocedural states | CPT/HCPCS: 99212 ==

== ENCOUNTER 2025-01-01 14:29 | Outpatient (REF) | payer MEDICARE, MEDICAID, SELFPAY ==
--- NOTE | ~2025-01-01 | MM_ITS ---
EXAMINATION: MM SCREENING DIGITAL BREAST TOMOSYNTHESIS, BILATERAL CLINICAL INFORMATION: Screening. Asymptomatic. COMPARISON: None. This is a baseline study. TECHNIQUE: Digital breast tomosynthesis is performed in mediolateral oblique and craniocaudal views along with computer-aided detection (CAD). Synthesized 2D images are generated from the tomosynthesis. FINDINGS: BREAST COMPOSITION: There are scattered areas of fibroglandular density. BILATERAL BREASTS: No significant masses, suspicious calcifications or other abnormalities are seen in either breast. MM/MM tomosynthesis screening BI IMPRESSION: BILATERAL BREASTS: Negative, no mammographic evidence of malignancy. Normal interval follow-up is recommended in 12 months. ASSESSMENT: BI-RADS: Category 1: Negative RECOMMENDATION: Routine annual mammography screening. FOLLOW-UP: 1 year F/U This examination should not preclude the clinical evaluation of a suspicious palpable abnormality. This patient's information was entered into a reminder system with a target due date for their next mammogram. Electronically signed by: Ponce Luna MD 01/05/2025 05:21 PM [facility]
--- NOTE | ~2025-01-01 | MM_ITS ---
EXAMINATION: DXA BONE DENSITY AXIAL HISTORY: Z78.0 - Asymptomatic menopausal state TECHNIQUE: Epyon Dual energy absorptiometry (DEXA) of the lumbar spine, total left hip, and femoral neck was performed. COMPARISON: There are no prior studies for comparison. FINDINGS: The bone mineral density of the lumbar spine is 1.042 g/cm2, corresponding to a T-score of -1.2, and a Z-score of -0.3. This is indicative of osteopenia. The bone mineral density of the left total hip is 0.784 g/cm2, corresponding to a T-score of -1.8, and a Z-score of -1.0. This is indicative of osteopenia. The bone mineral density of the left femoral neck is 0.662 g/cm2, corresponding to a T-score of -2.7, and a Z-score of -1.7. This is indicative of osteoporosis. FRACTURE RISK: The FRAX index suggests a risk of major osteoporotic fracture of 7.9%, and of hip fracture 1.9%. MM/XR DEXA axial skeleton IMPRESSION: Based on bone mineral density, and according to World Health Organization (WHO) criteria, the diagnosis is consistent with osteoporosis. Statistically, 68% of repeat scans fall within 1 SD (+/- 0.010 g/cm2 for AP spine L1-L4) and 1 SD (+/- 0.012 g/cm2 for femur total) FRAX is a trademark of the [employer] Metabolic Bone Disease, a World Health Organization (WHO) Collaborating Center. Electronically signed by: Mahesh Jiang MD 01/01/2025 03:30 PM [facility]
--- OUTSIDE RECORDS SUMMARY | 2025-01-02 02:58 | XMS_ITS | Encounter Summary ---
Author Organization [facility] Address [address] [place] [address] Phone Care Team Providers Care Hay Chopper Name Role Phone Pcp, Unknown Primary Care Provider Larisa Guidry AIRCRAFT LAY OUT WORKER Primary Care Prov ider Nicholas Dunlap MD Primary Care Provider [phone] [phone] Encounter Details Date Type Department Care Team (Late Contact Info) Description 05/27/2022 Procedure Pass Non-Invasive Cardiology [address] [place] [address] Social History Tobacco Use Types Packs/Day Years [...] End Date Used to work in a [employer], now retired Not on file Not on file Not on file documented as of this encounter Plan of Treatment Upcoming Encounters Date Type Department Care Team (Late Contact Info) Description 01/17/2025 3:30 PM EST Office Visit [facility] [address] [facility] 3rd Floor, [address] [place] [address] Radha Hay, ADRIEL [address] [facility], [address] [place] [address] [email or web address] documented as of this encounter Visit Diagnoses Not on filedocumented in this encounter Care Teams Hay Chopper Relationship Specialty Start Date End Date Pcp, Unknown PCP - General 05/26/22 12/01/22 Larisa Amato FNP [address] [place] [address] Dr Matos [address] [place] [address] PCP - General Family Medicine 01/13/23 11/21/23 Nicholas Dunlap MD [address] [place] [address] Dr [address] [place] [address] PCP - General Internal Medicine 11/22/23 documented as of this encounter Additional Source Comments The information contained in this document represents components of the legal health record. It is not the complete legal health record.[facility]
--- OUTSIDE RECORDS SUMMARY | 2025-01-02 02:58 | XMS_ITS | Encounter Summary ---
Author Organization [facility] Address [address] [place] [address] Phone Care Team Providers Care Wirer Street Light Name Role Phone Pcp, Unknown Primary Care Provider Larisa Guidry OUT OF TOWN COLLECTION CLERK Primary Care Prov ider Nicholas Dunlap MD Primary Care Provider [phone] [phone] Encounter Details Date Type Department Care Team (Late st Contact Info) Description 05/26/2022 Procedure Pass [facility] [address] [place] [address] Social History Tobacco Use Types Packs/Day Years [...] End Date Used to work in a [employer], now retired Not on file Not on file Not on file documented as of this encounter Functional Status * Calculated C-SSRS Risk Score (Lifetime/Recent) Answer Date of Assessment Author No Risk Indicated 05/26/2022 2:07 PM Vikram Ge RN * [place] Suicide Severity Rating Scale (Screener/Recent Self-Report) Question [...] Description 01/17/2025 3:30 PM EST Office Visit [facility] [address] [facility] 3rd Floor, [address] [place], [place] [id number] Radha Hay, ADRIEL 22 [facility], [address] [place] [address] [email or web address] documented as of this encounter Visit Diagnoses Not on filedocumented in this encounter Care Teams Wirer Street Light Relationship Specialty Start Date End Date Pcp, Unknown PCP - General 05/26/22 12/01/22 Larisa Amato FNP [address] [place] [address] Dr [address] [place] [address] PCP - General Family Medicine 01/13/23 11/21/23 Nicholas Dunlap MD [address] [place] [address] Dr Hasmukh [address] [place] [address] PCP - General Internal Medicine 11/22/23 documented as of this encounter Additional Source Comments The information contained in this document represents components of the legal health record. It is not the complete legal health record.[facility]
--- OUTSIDE RECORDS SUMMARY | 2025-01-02 02:58 | XMS_ITS | Encounter Summary ---
Author Organization [facility] Address [address] [place] [address] Phone Care Team Providers Care Layout Artist Name Role Phone Pcp, Unknown Primary Care Provider Larisa Guidry RETAIL BUSINESS MANAGER Primary Care Prov ider Nicholas Dunlap MD Primary Care Provider [phone] [phone] Encounter Details Date Type Department Care Team (Late st Contact Info) Description 12/01/2022 Procedure Pass [facility] [address] [place] [address] Social History Tobacco Use Types Packs/Day Years [...] End Date Used to work in a [employer], now retired Not on file Not on file Not on file documented as of this encounter Plan of Treatment Upcoming Encounters Date Type Department Care Team (Late st Contact Info) Description 01/17/2025 3:30 PM EST Office Visit [facility] [address] [facility] 3rd Floor, [address] [place] [address] Radha Hay DNP [address] [facility], [address] [place] [address] [email or web address] documented as of this encounter Visit Diagnoses Not on filedocumented in this encounter Care Teams Layout Artist Relationship Specialty Start Date End Date Pcp, Unknown PCP - General 05/26/22 12/01/22 Larisa Amato FNP [address] [place] [address] [place] [address] PCP - General Family Medicine 01/13/23 11/21/23 Nicholas Dunlap MD [address] [place] [address] Dr [address]mukh [address] [place] [address] PCP - General Internal Medicine 11/22/23 documented as of this encounter Additional Source Comments The information contained in this document represents components of the legal health record. It is not the complete legal health record.[facility]
--- OUTSIDE RECORDS SUMMARY | 2025-01-02 02:58 | XMS_ITS | Encounter Summary ---
Author Organization [facility] Address [address] [place] [address] Phone Care Team Providers Care Assistant Store Manager Name Role Phone Pcp, Unknown Primary Care Provider Larisa Guidry CONCILIATOR Primary Care Prov ider Nicholas Dunlap MD Primary Care Provider [phone] [phone] Encounter Details Date Type Department Care Team (Late st Contact Info) Description 05/26/2022 Procedure Pass [facility], Ct Scan - [facility] [address] [place] [address] Social History Tobacco Use Types Packs/Day Years [...] End Date Used to work in a [employer], now retired Not on file Not on file Not on file documented as of this encounter Functional Status * Calculated C-SSRS Risk Score (Lifetime/Recent) Answer Date of Assessment Author No Risk Indicated 05/26/2022 2:07 PM MARIET Vikram Lira RN * [place] Suicide Severity Rating Scale (Screener/Recent Self-Report) Question [...] Description 01/17/2025 3:30 PM EST Office Visit [facility] [address] [facility] 3rd Floor, [address] [place], [place] [phone] Radha Hay, ADRIEL 22 [facility], [address] [place], [place] [id number] [email or web address] documented as of this encounter Visit Diagnoses Not on filedocumented in this encounter Care Teams Assistant Store Manager Relationship Specialty Start Date End Date Pcp, Unknown PCP - General 05/26/22 12/01/22 Larisa Amato FNP [address] [place] [address] Dr [address] [place] [address] PCP - General Family Medicine 01/13/23 11/21/23 Nicholas Dunlap MD [address] [place] [address] [address] PCP - General Internal Medicine 11/22/23 documented as of this encounter Additional Source Comments The information contained in this document represents components of the legal health record. It is not the complete legal health record.[facility]
--- OUTSIDE RECORDS SUMMARY | 2025-01-02 02:58 | XMS_ITS | Encounter Summary ---
Author Organization [facility] Address [address] [place] [address] Phone Care Team Providers Care Autocad Technician Name Role Phone Pcp, Unknown Primary Care Provider Larisa Guidry REGIONAL FORESTER Primary Care Prov ider Nicholas Dunlap MD Primary Care Provider [phone] [phone] Encounter Details Date Type Department Care Team (Late st Contact Info) Description 05/26/2022 Procedure Pass [facility] [address] [place] [address] Social History Tobacco Use Types Packs/Day Years [...] End Date Used to work in a [employer], now retired Not on file Not on file Not on file documented as of this encounter Functional Status * Calculated C-SSRS Risk Score (Lifetime/Recent) Answer Date of Assessment Author No Risk Indicated 05/26/2022 2:07 PM EDT Vikram Lira RN * [place] Suicide Severity Rating Scale (Screener/Recent Self-Report) Question [...] Description 01/17/2025 3:30 PM EST Office Visit [facility] 22 [facility] 3rd Floor, [address] [place], [place] [phone] Radha Hay, ADRIEL [address] [facility], [address] [place], [place] [address] [email or web address] documented as of this encounter Visit Diagnoses Not on filedocumented in this encounter Care Teams Autocad Technician Relationship Specialty Start Date End Date Pcp, Unknown PCP - General 05/26/22 12/01/22 Larisa Amato FNP [address] [place] [address] Dr [address] [place] [address] PCP - General Family Medicine 01/13/23 11/21/23 Nicholas Dunlap MD [address] [place] [address] [address] PCP - General Internal Medicine 11/22/23 documented as of this encounter Additional Source Comments The information contained in this document represents components of the legal health record. It is not the complete legal health record.[facility]
--- OUTSIDE RECORDS SUMMARY | 2025-01-02 02:58 | XMS_ITS | Clinical Summary ---
Author Organization [facility] Address [address] [place] [address] Phone Care Team Providers Care Marketing Consultant Name Role Phone Nicholas Dunlap MD Primary Care Provider [phone] [phone] Allergies No known active allergies Medications aspirin [...] MG SL tabletIndication s:Coronary artery disease involving [place] coronary artery of [place] heart without angina pectoris Place 1 tablet [...] Diagnosed Date Coronary artery disease invo lving [place] coronary artery of [place] heart without angina pectoris 12/01/2022 Syncope 05/26/2022 [...] -Needs to be established with a local shank stapler and PCP to resume her medications Cerebrovascular [...] Liu. Will schedule for diagnostic cath at [facility]. I sent a prescription for nitroglycerin [...] (05/26/2022 7:04 PM EDT): As above, prior [place] x2, last 4 years ago at which time she had multiple stents placed. Prior shank stapler in [place]. No recent episodes of chest pain or [...] sliding scale with meals and nightly with [id number]-[id number] glucose monitoring 4 times daily -Constant carbohydrate [...] below and neurology consult. Case discussed with [facility] neurology acute stroke team. Note reviewed with [...] -TTE, telemetry, 30 day heart monitor at [place] and neuro follow up Immunizations Immunization Administration [...] End Date Used to work in a [employer], now retired Not on file Not on [...] Description 01/17/2025 3:30 PM EST Office Visit [facility] [address] [place] [address] 3rd Floor, [address] [place] [address] Radha Hay, [facility] 22 [facility], [address] [address] [email or web address] Health Maintenance Due Date Last Done Comments [...] patient's age to complete this topic IPV VACCINES Aged Out No longer eligi ble [...] HEMOGLOBIN A1C 7.0(H) 4.3 - 5.8 % [facility] Blood 07/16/2024 3:16 PM EDT 07/16/2024 3:20 PM EDT us Radha Hay DNP LAB BLOOD BKR ORDERABLES F inal Result [facility] [address] [place] [address] from Last 3 Months or Most Recently Relevant to Health Maintenance Insurance [facility] B B MEDICARE PART A & B [facility] B Advance Directives For more information, please contact: [phone] (9AM - 5PM [facility], Monday-Monday) * Full Code (Latest Code Status on File) Date Activated Date Inactivated Comments 05/26/2022 6:57 PM Question Answer Comments Code Status Confirmed With: Patient Care Teams Marketing Consultant Relationship Specialty Start Date End Date Nicholas Dunlap MD [address] [place] [address] [place] [address] PCP - General Internal Medicine 11/22/23 Additional Source Comments The information contained in this document represents components of the legal health record. It is not the complete legal health record.[facility]
--- OUTSIDE RECORDS SUMMARY | 2025-01-02 02:58 | XMS_ITS | Encounter Summary ---
Author Organization [facility] Address [address] [place] [address] Phone Care Team Providers Care Materials Recycler Name Role Phone Pcp, Unknown Primary Care Provider Larisa Guidry PILOT BOAT OPERATOR Primary Care Prov ider Nicholas Dunlap MD Primary Care Provider [phone] [phone] Encounter Details Date Type Department Care Team (Late st Contact Info) Description 05/26/2022 Procedure Pass [facility], Ct Scan - [facility] [address] [place] [address] Social History Tobacco Use Types Packs/Day Years [...] End Date Used to work in a [employer], now retired Not on file Not on file Not on file documented as of this encounter Functional Status * Calculated C-SSRS Risk Score (Lifetime/Recent) Answer Date of Assessment Author No Risk Indicated 05/26/2022 2:07 PM MARIET Vikram Lira RN * [place] Suicide Severity Rating Scale (Screener/Recent Self-Report) Question [...] Description 01/17/2025 3:30 PM EST Office Visit [facility] [address] [facility] 3rd Floor, [address] [place], [place] [phone] Radha Hay, ADRIEL 22 [facility], [address] [place], [place] [phone] [email or web address] documented as of this encounter Visit Diagnoses Not on filedocumented in this encounter Care Teams Materials Recycler Relationship Specialty Start Date End Date Pcp, Unknown PCP - General 05/26/22 12/01/22 Larisa Amato FNP [address] [place] [address] Dr [address] [place] [address] PCP - General Family Medicine 01/13/23 11/21/23 Nicholas Dunlap MD [address] [place] [address] [address] PCP - General Internal Medicine 11/22/23 documented as of this encounter Additional Source Comments The information contained in this document represents components of the legal health record. It is not the complete legal health record.[facility]
== END 2025-01-01 14:30 | disposition home or self-care (01) ==
LOC: HO.MAMMO 14:29
PROVIDERS: PCP Internal Medicine; Visit Provider Internal Medicine
DX: Z78.0 Asymptomatic menopausal state (principal); Z12.31 Encounter for screening mammogram for malignant neoplasm of breast
CPT/HCPCS: 77063; 77067; 77080

== ENCOUNTER → 2025-01-01 15:00 | Outpatient (BNV) | payer MEDICARE, MEDICAID, SELFPAY | PROVIDERS: PCP Internal Medicine; Visit Provider Radiology Diagnostic Radiology | DX: E28.39 Other primary ovarian failure (principal) | CPT/HCPCS: 77080 ==

== ENCOUNTER 2025-01-13 16:52 | Outpatient (AMB) | payer MEDICARE, MEDICAID, SELFPAY ==
[2025-01-13 16:57] VITALS: BP 120/64; BMI 34.5
--- NOTE | 2025-01-13 16:57 | A.OFFPC_ITS ---
Vital Signs 01/13/25 16:57 Height 5 ft 3 in Weight 195 lb BMI 34.5 BP 120/64 Blood Pressure Location Lt brachial Position Sitting Pulse Source Pulse Oximeter Oxygen Delivery Method Room Air Intake Visit Reasons: follow up Music Adapter Required: No Accompanied by: Self / Same As Patient Allergies No Known Allergies Allergy (Verified 01/13/25 17:32) Medication List - Last Reconciled 01/13/25 by Nicholas Dunlap MD allopurinol 100 mg PO DAILY 30 days aspirin 81 mg PO DAILY atorvastatin 80 mg PO BEDTIME blood sugar diagnostic (FreeStyle Test strips) Test 3X per day blood-glucose meter (FreeStyle [place] kit) As directed cholecalciferol (vitamin D3) (Vitamin D3) 25 mcg PO DAILY clopidogrel 75 mg PO DAILY empagliflozin (Jardiance) 25 mg PO DAILY famotidine (Pepcid) 20 mg PO DAILY gabapentin 300 mg PO TID 30 days insulin glargine (Lantus Solostar U-100 Insulin) 20 units (0.2 mL) subcut QPM insulin lispro (Humalog KwikPen (U-100) Insulin) 10 units (0.1 mL) subcut TID lancets (FreeStyle Lancets) As directed- four times a day lidocaine 5% (Lidoderm) 1 patch topical DAILY PRN metoprolol tartrate 12.5 mg PO BID nitroglycerin 0.3 mg sublingual Q5M PRN pregabalin 150 mg PO BEDTIME ranolazine ER 500 mg PO BID tirzepatide (Mounjaro) 2.5 mg (0.5 mL) subcut QWEEK 4 weeks Tobacco use date assessed: 01/13/25 Fall risk assessment: 2 + Falls in past year Last assessed Fall Risk: 01/13/25 Dental Screening Dental Screen Date: 01/13/25 Did you have a dental visit in the last 12 months?: No Did you have a dental problem in the last 6 months where you did not have access to dental care?: No Was dental information given to patient?: No HPI follow up HPI Details - The patient is a 64 year old individua l presenting for follow-up to review recent lab results showing declining kidney function. - Chronic kidney disease: The patient's glomerular filtration rate (GFR) had been stable in the 30s but has recently dropped to 29 and then 25. - Cutaneous lesion: The patient reports a skin lesion under the abdomen has grown and caused a burning sensation last week, but it is not itchy. - Vitamin D: The patient has been withou t prescribed vitamin D for 15 days as the prescription from the blemish remover was not filled. - Medication history: The patient denies taking ibuprofen, Advil, Motrin, Aleve, or other anti-inflammatory medications. Patient denies any headaches or dizziness Denies any chest pains, no increased shortness of breath No nausea/vomiting, no abdominal pain No change in bowel habits noted She had some follow-up labs done a few weeks ago but these are again nonfasting so they did not include her fasting lipid profile [facility] Medical History Former smoker CVA (cerebral vascular accident) Primary osteoarthritis of left hip Chronic kidney disease, stage III (moderate) Obesity (BMI 30-39.9) GERD without esophagitis Peripheral neuropathy Vitamin D deficiency Mixed hyperlipidemia Essential hypertension Diabetes mellitus Coronary artery disease Gout Myocardial infarction Surgical History Hx of section History of coronary angioplasty with insertion of stent H/O removal of cyst Family History Mother No problems noted. Father Alzheimer disease Brother No problems noted. Daughter No problems noted. Son No problems noted. Son No problems noted. Social History Household Members: Other Housing: Apartment Alcohol intake: never Patient Tobacco Use Status: Former Tobacco user Tobacco use type: Cigarette e-Cigarette/Vaping Use: Former Use Second Hand Smoke Exposure: No Current occupational status: unemployed Cognitive needs: No Hearing needs: No Vision needs: Yes Questionnaire PHQ-9 Over the last 2 weeks, how often have you been bothered by any of the following problems? 1. Little interest or pleasure in doing things: not at all 2. Feeling down, depressed, or hopeless: not at all 3. Trouble falling or staying asleep, or sleeping too much: more than half the days 4. Feeling tired or having little energy: several days 5. Poor appetite or overeating: not at all 6. Feeling bad about yourself - or that you are a failure or have let yourself or your family down: not at all 7. Trouble concentrating on things, such as reading the newspaper or watching television: not at all 8. Moving or speaking so slowly that other people could have noticed. Or the op posite - being so fidgety or restless that you have been moving around a lot more than usual: not at all 9. Thoughts that you would be better off or of hurting yourself in some way: not at all Total score: 3 Depression Screening Interpretation: Positive Depression Screening Follow-up: Follow-up Visit Requested Depression Screening Done: Yes 08012 - PHQ-9 Billing: Yes Source: Developed by Drs. Mahesh Calvillo, Shyanne Carrillo, Patrice Lee and colleagues, with an educational efe from [employer]. Thrive Questionnaire Date Thrive assessed: 01/13/25 I am a: Patient What is your living situation today?: I have a steady place to live Within the past 12 months, did the food you bought not last and you didn't have the money to get more?: Never true Within the past 12 months, did you worry whether your food would run out before you got money to buy more?: Never true Do you have trouble paying for medicines?: No Do you have trouble getting transportation to medical appointments?: No Do you have trouble paying your heating and electricity bill?: No Do you have trouble taking care of your child, family member or friend?: No Do you have trouble with day-to-day activities such as bathing, preparing meals, shopping, managing finances, etc.?: No Are you currently unemployed and looking for a job?: No Are you interested in more education?: No Please select the resources that you would like help with: None Currently or been in a relationship where the following occur: No concerns reported THRIVE Score: 0 AUDIT C Alcohol Use Questionnaire (AUDIT-C) 1. How often do you have a drink containing alcohol?: Never 3. How often do you have six or more drinks on one occasion?: Never Total Score: 0 Score Reviewed/Action Taken: Yes SKYLAR-7 AMB Questionnaire SKYLAR-7 Date SKYLAR - 7 assessed: 01/13/25 Feeling nervous, anxious, or on edge: 0 = Not at all Not being able to stop or control worryin = Not at all Worrying too much about different things: 0 = Not at all Trouble relaxin = Not at all Being so restless that it is hard to sit still: 0 = Not at all Becoming easily annoyed or irritable: 0 = Not at all Feeling afraid as if something awful might happen: 0 = Not at all Total SKYLAR-7 score (0-4 normal; 5-9 mild; 10-14 moderate; 15-21 severe): 0 Source: Developed by Drs. Mahesh Calvillo, Shyanne Carrillo, Patrice Lee and colleagues, with an educational efe from [employer]. SKYLAR-7 Assessment Billing SKYLAR-7 Assessment Tool: SKYLAR-7 Assessment 42487 Review of Systems Const Denies chills, Reports fatigue, Denies fever(s) and Denies headache(s) ENT Denies dysphagia, Denies dizziness, Denies otalgia, Denies headache(s), Denies neck pain, Denies odynophagia and Denies sore throat Card Denies chest pain, Denies palpitations and Denies dyspnea Resp Denies chest congestion, Denies cough and Denies dyspnea GI Denies abdominal pain, Denies constipation, Denies dysphagia, Denies heartburn, Denies diarrhea, Denies nausea, Denies odynophagia and Denies vomiting Denies difficulty voiding, Denies nocturia, Denies dysuria and Denies urinary urgency Musc Reports back pain (over the right lower back, on and off), Reports arthralgias (in the left hip) and Denies neck pain Skin/Breast Denies rash Neuro Denies dizziness and Denies headache(s) Endo Reports fatigue and Denies palpitations Physical exam (Primary Care) Vital Signs: Last Vital Signs BP 120/64 01/13/25 16:57 Oxygen Delivery Method Room Air 01/13/25 16:57 BMI result Body Mass Index 34.5 Tobacco/Smoking Status: Tobacco use Status Tobacco use date assessed 01/13/25 01/13/25 17:01 Patient Tobacco Use Status Former Tobacco user 01/13/25 17:01 Tobacco use type Cigarette 01/13/25 17:01 e-Cigarette/Vaping Use Former Use 01/13/25 17:01 PHQ-9: PHQ-9 Score PHQ-9: Total score 3 01/13/25 17:36 Depression Screening Interpretation: Positive Depression Screening Follow-up: Fo llow-up Visit Requested Thrive Assessment: Date of Thrive Assessment Date Thrive assessed 01/13/25 01/13/25 17:01 Currently or been in a relationship where the following occur: No concerns reported Const General: no acute distress and alert HENMT Ears: TM's normal bilaterally and EAC's normal Throat: Yes posterior oropharynx normal and Yes tonsils normal (no TP congestion) Neck Neck: Yes supple and No lymphadenopathy Thyroid: Thyroid normal Resp Auscultation: clear to auscultation bilaterally, no rales and no wheezes Cardio Rate: regular rate Rhythm: regular rhythm Heart sounds: no murmurs GI Palpation (GI): Soft to palpation and nontender Auscultation: normal bowel sounds General: Yes no CVA tenderness Back/Spine/Pelvis Back: no CVA tenderness Thoracic/Lumbar Spine: paraspinal muscle tenderness on the right in the mid lumb ar and in the lower lumbar Skin Rashes: no rashes Extrem General: Yes no clubbing, cyanosis or edema Right lower extremity: ankle Details: tenderness; no swelling and foot Details: tenderness Location: of the great toe Location: along the entire digit and no edema Left lower extremity: hip/thigh Details: tenderness Location: of the hip Results Reviewed Results Reviewed: Laboratory Tests 10/10/24 11/26/24 11/27/24 09:37 11:37 10:34 WBC 11.4 H Hgb 13.8 Hct 42.5 Plt Count 257 Sodium 145 Potassium 4.6 Creatinine 2.01 H Estimated GFR 25 Random Glucose 118 H Calcium 10.1 Troponin I High Sens 6.6 Ur Specific [place] 1.020 Urine Protein Negative Urine Glucose (UA) >=1000 H Urine Blood Negative Urine Nitrite Negative Ur Leukocyte Esterase Small (1+) H Microalb/Creat Ratio 49.7 H Coding Level of Care Code Est Pt Level 4 (85904) Diagnoses Coronary artery disease involving [place] coronary artery of [place] heart without angina pectoris I25.10 Associated angina: without angina Coronary Disease-Associated Artery/Lesion type: [place] artery [place] vs. transplanted heart: [place] heart Mixed hyperlipidemia E78.2 Type 2 diabetes mellitus with diabetic neuropathy, with long-term current use of insulin E11.40; Z79.4 Diabetes mellitus complication detail: with unspecified neuropathy Diabetes mellitus complication status: with neurologic complications Diabetes mellitus watermaster insulin use: with watermaster use Diabetes mellitus type: type 2 Essential hypertension I10 Stage 3b chronic kidney disease N18.32 Chronic kidney disease stage 3 subtype: stage 3b (GFR 30-44) Peripheral polyneuropathy G62.9 Peripheral neuropathy type: polyneuropathy, unspecified Chronic gout without tophus, unspecified cause, unspecified site [id number].[id number] Chronicity: chronic Gout etiology: unspecified cause Gout site: unspecified site Presence of tophus: without tophus GERD without esophagitis K21.9 Vitamin D deficiency E55.9 Intertrigo L30.4 Right-sided low back pain with right-sided sciatica, unspecified chronicity M54.41 Chronicity: unspecified Sciatica laterality: sciatica of right side Primary osteoarthritis of left hip M16.12 Obesity (BMI 30-39.9) E66.9 Additional Codes SKYLAR-7 Assessment Billing - SKYLAR-7 Assessment Tool: SKYLAR-7 Assessment 74861 ([id number]) PHQ-9 - 93559 - PHQ-9 Billing: Yes ([id number]) Assessment & Plan Assessment & Plan (1) Coronary artery disease: Comment: S/P [place]; had PCI to RCA and LAD in [place] in 2019 Code(s): I25.10 - Atherosclerotic heart disease of [place] coronary artery without angina pectoris Category: Medical Qualifiers: Associated angina: without angina Coronary Disease-Associated Artery/Lesion type: [place] artery [place] vs. transplanted heart: [place] heart Qualified Code(s): I25.10 - Atherosclerotic heart disease of [place] coronary artery without angina pectoris Plan: Patient currently has no acute cardiac or anginal symptoms Continue Aspirin 81 mg QD and Clopidogrel 75 mg QD - she needs to be on lifelong antiplatelet Tx due to her Hx of PCI in 2019 Continue Metoprolol tartrate 12.5 mg BID She used to follow-up with cardiology in [place] but is now requesting [place] [facility] [place] - referral placed (2) Mixed hyperlipidemia: Code(s): E78.2 - Mixed hyperlipidemia Category: Medical Plan: Results of her labs done a few weeks ago reviewed and discussed with patient but these were again nonfasting labs and did not include her lipid profile Her LDL cholesterol level was at 93 mg/dl when it was last checked in May 2024 Reinforced low-cholesterol diet Continue Atorvastatin 80 mg QD Will have her recheck her labs and fasting lipids in 3 months for follow-up (3) Diabetes mellitus: Code(s): E11.9 - Type 2 diabetes mellitus without complications Category: Medical Qualifiers: Diabetes mellitus complication detail: with unspecified neuropathy Diabetes mellitus complication status: with neurologic complications Diabetes mellitus watermaster insulin use: with retirement use Diabetes mellitus type: type 2 Qualified Code(s): E11.40 - Type 2 diabetes mellitus with diabetic neuropathy, unspecified; Z79.4 - halfway (current) use of insulin Plan: Her HgbA1c was at 6.9% when it was last checked in May 2024 (was previously at 7.2% earlier this year) - goal is at least <7.0% but ideally <6.5% Reinforced diabetic diet Continue Lantus 20 units Q HS, Humalog 10 units TID with meals and Mounjaro 2.5 mg SQ once a week Will recheck her HgbA1c and FBS in 3 months for follow up (4) Essential hypertension: Code(s): I10 - Essential (primary) hypertension Category: Medical Plan: Reinforced low sodium diet - goal is systolic BP of at least 120 to 130 mm or less Continue Metoprolol tartrate 12.5 mg BID (5) Chronic kidney disease, stage III (moderate): Code(s): N18.30 - Chronic kidney disease, stage 3 unspecified Category: Medical Qualifiers: Chronic kidney disease stage 3 subtype: stage 3b (GFR 30-44) Qualified Code(s): N18.32 - Chronic kidney disease, stage 3b Plan: Patient's GFR and serum creatinine appears to have improved slightly on her recent labs She is currently not on an VILMA inhibitor or ARB for renoprotection - will hold off on starting her on one of these for now and see how her renal function is over the next few months She is now being seen by Nephrology is currently scheduled for a renal biopsy in a couple of weeks as her recent workups/labs 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 Will have patient recheck her labs in 3 months for follow up (6) Peripheral neuropathy: Code(s): G62.9 - Polyneuropathy, unspecified Category: Medical Qualifiers: Peripheral neuropathy type: polyneuropathy, unspecified Qualified Code(s): G62.9 - Polyneuropathy, unspecified Plan: Continue Gabapentin 300 mg Q HS and Lidocaine 5% patches QD PRN (7) Gout: Code(s): M10.9 - Gout, unspecified Category: Medical Qualifiers: Chronicity: chronic Gout etiology: unspecified cause Gout site: unspecified site Presence of tophus: without tophus Qualified Code(s): M1A.9XX0 - Chronic gout, unspecified, without tophus (tophi) Plan: Her serum uric acid level has improved to 7.1 mg/dL when it was last checked in September 2024 (was previously at 8.6 mg/dl a few months ago) Reinforced low purine diet Continue Allopurinol 100 mg QD for now - we prefer not to raise dose due to her renal function but may need to switch her to Febuxostat later on if her renal function continues to get worse Will recheck her serum uric acid level in a few months for follow up (8) GERD without esophagitis: Code(s): K21.9 - Gastro-esophageal reflux disease without esophagitis Category: Medical Plan: Reinforced dietary restrictions in GERD Continue Famotidine 20 mg QD (9) Vitamin D deficiency: Code(s): E55.9 - Vitamin D deficiency, unspecified Category: Medical Plan: Continue Vitamin D3 1000 units QD (10) Intertrigo: Code(s): L30.4 - Erythema intertrigo Category: Medical Plan: Will start her on Nystatin powder 445966 units/gm TID (11) Right-sided low back pain with sciatica: Code(s): M54.41 - Lumbago with sciatica, right side Category: Medical Qualifiers: Chronicity: unspecified Sciatica laterality: sciatica of right side Qualified Code(s): M54.41 - Lumbago with sciatica, right side Plan: X-rays of the lumbar spine done a few months ago revealed (+) facet osteoarthritis at L4-L5 and L5-S1 Reinforced activity and weight-lifting restrictions Have advised patient that we can refer her to physical therapy if her low back pain continues to bother her a lot - patient states that she will call for referral to PT when needed (12) Primary osteoarthritis of left hip: Code(s): M16.12 - Unilateral primary osteoarthritis, left hip Category: Medical Plan: Left hip x-rays done a few months ago also revealed (+) mild OA changes in the left hip We can consider referring her to orthopedics if her hip pain gets worse (13) Obesity (BMI 30-39.9): Code(s): E66.9 - Obesity, unspecified Category: Medical Plan: Reinforced diet/exercise as tolerated/lose weight Plan Follow-up in 3 months Orders: Orders Complete Blood Count Auto Diff 3 Months D64.9 - Anemia, unspecified Hemoglobin A1c 3 Months E11.9 - Type 2 diabetes mellitus without complications Comprehensive [place]. Panel Fast 3 Months E78.00 - Pure hypercholesterolemia, unspecified Lipid Panel 3 Months E78.00 - Pure hypercholesterolemia, unspecified UA CC w/rflx Micro + Cult 3 Months R30.0 - Dysuria Medications: New nystatin (Nystop) 1 appl topical TID 60 grams 0RF 7 days
--- OUTSIDE RECORDS SUMMARY | 2025-01-13 18:50 | XMS_ITS | Encounter Summary ---
Author Organization [facility] Address [address] [place] [address] Phone Care Team Providers Care Examiner Of Currency Name Role Phone Pcp, Unknown Primary Care Provider Larisa Guidry BLOWN FILM EXTRUSION OPERATOR Primary Care Prov ider Nicholas Dunlap MD Primary Care Provider [phone] Encounter Details Date Type Department Care Team (Late st Contact Info) Description 05/26/2022 Procedure Pass [facility] [address] [place] [address] Social History Tobacco Use Types Packs/Day Years [...] End Date Used to work in a [employer], now retired Not on file Not on file Not on file documented as of this encounter Functional Status * Calculated C-SSRS Risk Score (Lifetime/Recent) Answer Date of Assessment Author No Risk Indicated 05/26/2022 2:07 PM EDT Vikram Lira RN * [place] Suicide Severity Rating Scale (Screener/Recent Self-Report) Question [...] Description 01/17/2025 3:30 PM EST Office Visit [facility] [address], [address] [place], [place] [id number] Radha Hay, ADRIEL [address], [address] [place], [place] [id number] [email or web address] documented as of this encounter Visit Diagnoses Not on filedocumented in this encounter Care Teams Examiner Of Currency Relationship Specialty Start Date End Date Pcp, Unknown PCP - General 05/26/22 12/01/22 Larisa Amato FNP [address] [place] [address] Dr [address] [place] [address] PCP - General Family Medicine 01/13/23 11/21/23 Nicholas Dunlap MD [address] [place] [address] [address] PCP - General Internal Medicine 11/22/23 documented as of this encounter Additional Source Comments The information contained in this document represents components of the legal health record. It is not the complete legal health record.[facility]
--- OUTSIDE RECORDS SUMMARY | 2025-01-13 18:50 | XMS_ITS | Encounter Summary ---
Author Organization [facility] Address [address] [place] [address] Phone Care Team Providers Care Police Booking Officer Name Role Phone Pcp, Unknown Primary Care Provider Larisa Guidry CHIEF PAYROLL CLERK Primary Care Prov ider Nicholas Dunlap MD Primary Care Provider [phone] Encounter Details Date Type Department Care Team (Late st Contact Info) Description 05/26/2022 Procedure Pass [facility] - [facility] [address] [place] [address] Social History Tobacco Use Types Packs/Day Years [...] End Date Used to work in a [employer], now retired Not on file Not on file Not on file documented as of this encounter Functional Status * Calculated C-SSRS Risk Score (Lifetime/Recent) Answer Date of Assessment Author No Risk Indicated 05/26/2022 2:07 PM MARIET Vikram Lira RN * [place] Suicide Severity Rating Scale (Screener/Recent Self-Report) Question [...] Description 01/17/2025 3:30 PM EST Office Visit [facility] [address], [address] [place], [place] [phone] Radha Hay, ADRIEL [address], [address] [place], [place] [phone] [email or web address] documented as of this encounter Visit Diagnoses Not on filedocumented in this encounter Care Teams Police Booking Officer Relationship Specialty Start Date End Date Pcp, Unknown PCP - General 05/26/22 12/01/22 Larisa Amato FNP [address] [place] [address] [address] [place] [address] PCP - General Family Medicine 01/13/23 11/21/23 Nicholas Dunlap MD [address] [place] [address] [address] PCP - General Internal Medicine 11/22/23 documented as of this encounter Additional Source Comments The information contained in this document represents components of the legal health record. It is not the complete legal health record.[facility]
--- OUTSIDE RECORDS SUMMARY | 2025-01-13 18:50 | XMS_ITS | Encounter Summary ---
Author Organization [facility] Address [address] [place] [address] Phone Care Team Providers [employer] Pilot Name Role Phone Pcp, Unknown Primary Care Provider Larisa Guidry IS PROJECT MANAGER Primary Care Prov ider Nicholas Dunlap MD Primary Care Provider [phone] Encounter Details Date Type Department Care Team (Late st Contact Info) Description 12/01/2022 Procedure Pass [facility] [address] [place] [address] Social History Tobacco Use Types Packs/Day Years [...] End Date Used to work in a [employer], now retired Not on file Not on file Not on file documented as of this encounter Plan of Treatment Upcoming Encounters Date Type Department Care Team (Late st Contact Info) Description 01/17/2025 3:30 PM EST Office Visit [facility] [address], [address] [place] [address] Radha Hay DNP [address], [address] [place] [address] [email or web address] documented as of this encounter Visit Diagnoses Not on filedocumented in this encounter Care Teams Corporation Pilot Relationship Specialty Start Date End Date Pcp, Unknown PCP - General 05/26/22 12/01/22 Larisa Amato FNP [address] [place] [address] [place] [address] PCP - General Family Medicine 01/13/23 11/21/23 Nciholas Dunlap MD [address] [place] [address] Dr [address]mukh [address] [place] [address] PCP - General Internal Medicine 11/22/23 documented as of this encounter Additional Source Comments The information contained in this document represents components of the legal health record. It is not the complete legal health record.[facility]
--- OUTSIDE RECORDS SUMMARY | 2025-01-13 18:50 | XMS_ITS | Encounter Summary ---
Author Organization [facility] Address [address] [place] [address] Phone Care Team Providers Care Or First Assist Registered Nurse Name Role Phone Pcp, Unknown Primary Care Provider Larisa Guidry SENIOR ADVISORY Primary Care Prov ider Nicholas Dunlap MD Primary Care Provider +1 [phone] Encounter Details Date Type Department Care Team (Late st Contact Info) Description 05/26/2022 Procedure Pass [facility], Ct Scan - [facility] [address] [place] [address] Social History Tobacco Use Types Packs/Day Years [...] End Date Used to work in a [employer], now retired Not on file Not on file Not on file documented as of this encounter Functional Status * Calculated C-SSRS Risk Score (Lifetime/Recent) Answer Date of Assessment Author No Risk Indicated 05/26/2022 2:07 PM MARIET Vikram Lira RN * [place] Suicide Severity Rating Scale (Screener/Recent Self-Report) Question [...] Description 01/17/2025 3:30 PM EST Office Visit [facility] [address] [facility] 3rd Floor, [address] [place], [place] [id number] Radha Hay, ADRIEL [address] [facility], [address] [place], [place] [id number] [email or web address] documented as of this encounter Visit Diagnoses Not on filedocumented in this encounter Care Teams Or First Assist Registered Nurse Relationship Specialty Start Date End Date Pcp, Unknown PCP - General 05/26/22 12/01/22 Larisa Amato FNP [address] [place] [address] Dr [address] [place] [address] PCP - General Family Medicine 01/13/23 11/21/23 Nicholas Dunlap MD [address] [place] [address] [address] PCP - General Internal Medicine 11/22/23 documented as of this encounter Additional Source Comments The information contained in this document represents components of the legal health record. It is not the complete legal health record.[facility]
--- OUTSIDE RECORDS SUMMARY | 2025-01-13 18:50 | XMS_ITS | Encounter Summary ---
Author Organization [facility] Address [address] [facility] [address] [place] [address] Phone Care Team Providers Care Touring Production Manager Name Role Phone Pcp, Unknown Primary Care Provider Larisa Guidry AIR ANTISUBMARINE OFFICER Primary Care Prov ider Nicholas Dunlap MD Primary Care Provider [phone] [phone] Encounter Details Date Type Department Care Team (Late st Contact Info) Description 05/26/2022 Procedure Pass [facility] [address] [place] [address] Social History Tobacco Use Types Packs/Day Years [...] End Date Used to work in a [employer], now retired Not on file Not on file Not on file documented as of this encounter Functional Status * Calculated C-SSRS Risk Score (Lifetime/Recent) Answer Date of Assessment Author No Risk Indicated 05/26/2022 2:07 PM Vikram Ge RN * [place] Suicide Severity Rating Scale (Screener/Recent Self-Report) Question [...] Description 01/17/2025 3:30 PM EST Office Visit [facility] [address] [facility] 3rd Floor, [address] [place], [place] [id number] Radha Hay, ADRIEL [address] [facility], [address] [place] [address] [email or web address] documented as of this encounter Visit Diagnoses Not on filedocumented in this encounter Care Teams Touring Production Manager Relationship Specialty Start Date End Date Pcp, Unknown PCP - General 05/26/22 12/01/22 Larisa Amato FNP [address] [place] [address] Dr [address] [place] [address] PCP - General Family Medicine 01/13/23 11/21/23 Nicholas Dunlap MD [address] [place] [address] Dr [address] [place] [address] PCP - General Internal Medicine 11/22/23 documented as of this encounter Additional Source Comments The information contained in this document represents components of the legal health record. It is not the complete legal health record.[facility]
--- OUTSIDE RECORDS SUMMARY | 2025-01-13 18:50 | XMS_ITS | Clinical Summary ---
Author Organization [facility] Address [address] 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 Will schedule for diagnostic cath at [facility]. I sent a prescription for nitroglycerin [...] (05/26/2022 7:04 PM EDT): As above, prior AL x2, last 4 years ago at which time she had multiple stents placed. 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 No recent episodes of chest pain or [...] sliding scale with meals and nightly with xcedb-dg-tjqy glucose monitoring 4 times daily -Constant carbohydrate [...] below and neurology consult. Case discussed with [facility] neurolog[facility] acute stroke team. Note reviewed with [...] -TTE, telemetry, 30 day heart monitor at [place] and neuro follow up Immunizations Immunization Administration [...] End Date Used to work in a [employer], now retired Not on file Not on [...] Description 01/17/2025 3:30 PM EST Office Visit [facility] [address] [place] [address] 3rd Floor, [address] [place] [address] Radha Hay, [facility] [address] [facility], [address] [address] Health Maintenance Due Date Last Done Comments [...] HEMOGLOBIN A1C 7.0(H) 4.3 - 5.8 % [facility] Blood 07/16/2024 3:16 PM EDT 07/16/2024 3:20 PM EDT us Radha Hay DNP LAB BLOOD BKR ORDERABLES F inal Result [facility] 30 [place] [address] from Last 3 Months or Most Recently Relevant to Health Maintenance Insurance B MEDICARE PART A & [facility] B Member Subscriber Plan / Payer (Ef fective 2023-) Name:Tono Lynne Member ID:[id number] Relation to Subscriber:Self Name:Lynne Power Subscriber ID:[id number] Payer ID:[id number] Group ID:Not on file Type:Medicare Address: [employer] [address] [facility] PART A & B [facility] PART [facility] & B [facility] PART [facility] & B [facility] PART A & B Advance Directives For more information, please contact: [phone] (9AM - 5PM [facility], Monday-Monday) * Full Code (Latest Code Status on File) Date Activated Date Inactivated Comments 05/26/2022 6:57 PM Question Answer Comments Code Status Confirmed With: Patient Care Teams Laborer Egg Producing Farm Relationship Specialty Start Date End Date Nicholas Dunlap MD [address] [place] [address] [place] [address] PCP - General Internal Medicine 11/22/23 Additional Source Comments The information contained in this document represents components of the legal health record. It is not the complete legal health record.[facility]
--- OUTSIDE RECORDS SUMMARY | 2025-01-13 18:50 | XMS_ITS | Encounter Summary ---
Author Organization [facility] Address [address] [facility] [address] [place] [address] Phone Care Team Providers Care Shredder Picker Name Role Phone Pcp, Unknown Primary Care Provider Larisa Guidry DIRECT CARE SUPERVISOR Primary Care Prov ider Nicholas Dunlap MD Primary Care Provider [phone] [phone] Encounter Details Date Type Department Care Team (Late Contact Info) Description 05/27/2022 Procedure Pass [facility] [address] [place] [address] Social History Tobacco Use Types Packs/Day Years [...] End Date Used to work in a [employer], now retired Not on file Not on file Not on file documented as of this encounter Plan of Treatment Upcoming Encounters Date Type Department Care Team (Late Contact Info) Description 01/17/2025 3:30 PM EST Office Visit [facility] [address] [facility] 3rd Floor, [address] [place] [address] Radha Hay, ADRIEL [address] [facility], [address] [place] [address] [email or web address] documented as of this encounter Visit Diagnoses Not on filedocumented in this encounter Care Teams Shredder Picker Relationship Specialty Start Date End Date Pcp, Unknown PCP - General 05/26/22 12/01/22 Larisa Amato FNP [address] [place] [address] Dr Matos [address] [place] [address] PCP - General Family Medicine 01/13/23 11/21/23 Nicholas Dunlap MD [address] [place] [address] Dr [address] [place] [address] PCP - General Internal Medicine 11/22/23 documented as of this encounter Additional Source Comments The information contained in this document represents components of the legal health record. It is not the complete legal health record.[facility]
== END 2025-01-13 17:43 | disposition home or self-care (01) ==
LOC: HO.HMCH 16:52
PROVIDERS: PCP Internal Medicine; Visit Provider Internal Medicine
DX: I12.9 Hypertensive chronic kidney disease with stage 1 through stage 4 chronic kidney disease, or unspecified chronic kidney disease (principal); E11.40 Type 2 diabetes mellitus with diabetic neuropathy, unspecified; Z79.4 Long term (current) use of insulin; N18.32 Chronic kidney disease, stage 3b; I25.10 Atherosclerotic heart disease of native coronary artery without angina pectoris; E78.2 Mixed hyperlipidemia; G62.9 Polyneuropathy, unspecified; M1A.9XX0 Chronic gout, unspecified, without tophus (tophi); K21.9 Gastro-esophageal reflux disease without esophagitis; E55.9 Vitamin D deficiency, unspecified; L30.4 Erythema intertrigo; M54.41 Lumbago with sciatica, right side; M16.12 Unilateral primary osteoarthritis, left hip

== ENCOUNTER → 2025-01-13 16:52 | Outpatient (BNVA) | payer MEDICARE, MEDICAID, SELFPAY | PROVIDERS: PCP Internal Medicine; Visit Provider Internal Medicine | DX: I25.10 Atherosclerotic heart disease of native coronary artery without angina pectoris (principal); E78.2 Mixed hyperlipidemia; E11.40 Type 2 diabetes mellitus with diabetic neuropathy, unspecified; Z79.4 Long term (current) use of insulin; I10 Essential (primary) hypertension; N18.32 Chronic kidney disease, stage 3b; G62.9 Polyneuropathy, unspecified; M1A.9XX0 Chronic gout, unspecified, without tophus (tophi); K21.9 Gastro-esophageal reflux disease without esophagitis; E55.9 Vitamin D deficiency, unspecified; M54.41 Lumbago with sciatica, right side; L30.4 Erythema intertrigo; M16.12 Unilateral primary osteoarthritis, left hip; E66.9 Obesity, unspecified; Z13.31 Encounter for screening for depression; Z13.39 Encounter for screening examination for other mental health and behavioral disorders | CPT/HCPCS: 96127; 99212 ==

== ENCOUNTER 2025-02-11 06:55 | Outpatient (REF) | payer MEDICARE, MEDICAID, SELFPAY ==
--- NOTE | ~2025-02-11 | FL_ITS ---
EXAMINATION: FL GUIDANCE ONLY HISTORY: M47.817 - Spondylosis without myelopathy or radiculopathy, lumbosacral r... COMPARISON: None available. TECHNIQUE: Fluoroscopy time: 42 seconds. Cumulative Dose: 10.30 mGy. DAP: 2211.80 mGycm2 Images: 12. FINDINGS: Fluoroscopic spot films of the lumbar spine demonstrate needles and contrast material in the regions of the bilateral L3-4, L4-5, and L5-S1 facet joints. FL/FL guidance in treatment room IMPRESSION: Fluoroscopy during procedure. Please see procedure report for additional information. Electronically signed by: Mahesh Jiang MD 02/11/2025 02:20 PM [facility]
--- OUTSIDE RECORDS SUMMARY | 2025-02-11 08:38 | XMS_ITS | Encounter Summary ---
Author Organization [facility] Address [address] [facility] [address] [place] [address] Phone Care Team Providers Care Roller Skate Repairer Name Role Phone Pcp, Unknown Primary Care Provider Larisa Guidry Primary Care Prov ider Nicholas Dunlap MD Primary Care Provider [phone] [phone] Encounter Details Date Type Department Care Team (Late st Contact Info) Description 05/27/2022 Procedure Pass [facility]-Invasic [facility] [address] [place] [address] Social History Tobacco Use Types Packs/Day Years [...] End Date Used to work in a [employer], now retired Not on file Not on file Not on file documented as of this encounter Plan of Treatment Not on file documented as of this encounter Visit Diagnoses Not on filedocumented in this encounter Care Teams Roller Skate Repairer Relationship Specialty Start Date End Date Pcp, Unknown PCP - General 05/26/22 12/01/22 Larisa Amato FNP [address] [place] [address] [address] [place] [address] PCP - General Family Medicine 01/13/23 11/21/23 Nicholas Dunlap MD [address] [place] [address] [place] [address] PCP - General Internal Medicine 11/22/23 documented as of this encounter Additional Source Comments The information contained in this document represents components of the legal health record. It is not the complete legal health record.[facility]
--- OUTSIDE RECORDS SUMMARY | 2025-02-11 08:38 | XMS_ITS | Encounter Summary ---
Author Organization [facility] Address [address] [facility] [address] [place] [address] Phone Care Team Providers Care Crossing Watchman Name Role Phone Pcp, Unknown Primary Care Provider Larisa Guidry Primary Care Prov ider Nicholas Dunlap MD Primary Care Provider [phone] [phone] Encounter Details Date Type Department Care Team (Late st Contact Info) Description 05/26/2022 Procedure Pass [facility], [address] [address] Social History Tobacco Use Types Packs/Day Years [...] End Date Used to work in a [employer], now retired Not on file Not on file Not on file documented as of this encounter Plan of Treatment Not on file documented as of this encounter Visit Diagnoses Not on filedocumented in this encounter Care Teams Crossing Watchman Relationship Specialty Start Date End Date Pcp, Unknown PCP - General 05/26/22 12/01/22 Larisa Amato FNP [address] [place] [address] [address] [place] [address] PCP - General Family Medicine 01/13/23 11/21/23 Nicholas Dunlap MD [address] [place] [address] Dr [place], [place] [address] PCP - General Internal Medicine 11/22/23 documented as of this encounter Additional Source Comments The information contained in this document represents components of the legal health record. It is not the complete legal health record.[facility]
--- OUTSIDE RECORDS SUMMARY | 2025-02-11 08:38 | XMS_ITS | Clinical Summary ---
Author Organization [facility] Address [address] [facility] [address] [place] [address] Phone Care Team Providers Care Air Tucker Name Role Phone Nicholas Dunlap MD Primary Care Provider [phone] [phone] Allergies No known active allergies Medications aspirin [...] MG SL tabletIndication s:Coronary artery disease involving [place]'od[place] coronary artery of [place]'od[place] heart without angina pectoris Place 1 tablet [...] Diagnosed Date Coronary artery disease invo lving [place]ono [place] coronary artery of [place] heart without angina pectoris 12/01/2022 Syncope 05/26/2022 [...] -Needs to be established with a local end finder forming department and PCP to resume her medications Cerebrovascular [...] Liu. Will schedule for diagnostic cath at [facility]. I sent a prescription for [...] time she had multiple stents placed. Prior end finder forming department in [place]. No recent episodes of chest pain or [...] sliding scale with meals and nightly with ofqdp-yd-vdme glucose monitoring 4 times daily -Constant carbohydrate [...] below and neurology consult. Case discussed with [facility] neurology acute stroke team. Note reviewed with [...] -TTE, telemetry, 30 day heart monitor at [place] and neuro follow up Immunizations Immunization Administration [...] End Date Used to work in a [employer], now retired Not on file Not on [...] 07/19/2024 12:50 PM EDT Plan of Treatment Health Maintenance Due Date [...] VACCINE (#1) 2024 05/27/2022 COVID-19 VACCINE ( - season) 2024 HEMOGLOBIN A1C 01/15/2025 07/16/2024, 12/16, 05/27/2022, Additional history exists BLOOD PRESSURE 01/18/2025 [...] (ABNORMAL) Hemoglobin A1c (07/16/2024 3:16 PM EDT) [facility] HEMOGLOBIN A1C 7.0(H) 4.3 - 5.8 % [facility] Blood 07/16/2024 3:16 PM EDT 07/16/2024 3:20 PM EDT us Radha Hay DNP LAB BLOOD BKR ORDERABLES F inal Result [address] [address] from Last 3 Months or Most Recently Relevant to Health Maintenance Insurance [employer] MEDICARE PART A & B Member Subscriber Plan / Payer (Ef fective 2023-Present) Name:Lynne Power Member ID:[id number] Relation to Subscriber:Self Name:Lynne Power Subscriber ID:[id number] Payer ID:[id number] Group ID:Not on file Type:Medicare Address: [employer] [address] [place] [address] B MEDICARE PART A & B Member Subscriber Plan / Payer (Ef fective 2023-Present) Name:Tono Lynne Member ID:[id number] Relation to Subscriber:Self Name:Power, Lynne Subscriber ID:[id number] Payer ID:[id number] Group ID:Not on file Type:Medicare Address: [employer] [address] [place] [address] [facility] A & B Member Subscriber Plan / Payer (Ef fective 2023-Present) Name:Lynne Power Member ID:[id number] Relation to Subscriber:Self Name:Lynne Power Subscriber ID:[id number] Payer ID:[id number] Group ID:Not on file Type:Medicare Address: [employer] [address] [facility] MEDICARE PART A & B Member Subscriber Plan / Payer (Ef fective 2023-Present) Name:Lynne Power Member ID:[id number] Relation to Subscriber:Self Name:Lynne Power Subscriber ID:[id number] Payer ID:[id number] Group ID:Not on file Type:Medicare Address: [employer] [address] [place], [place] [id number] [facility] PART A & B Member Subscriber Plan / Payer (Ef fective 2023-) Name:Lynne Power Member ID:[id number] Relation to Subscriber:Self Name:Lynne Power Subscriber ID:[id number] Payer ID:[id number] Group ID:Not on file Type:Medicare Address: [employer] [address] [address] [place] [address] [facility] MEDICARE PART A & B Member Subscriber Plan / Payer (Ef fective 2023-Present) Name:Lynne Power Member ID:[id number] Relation to Subscriber:Self Name:Lynne Power Subscriber ID:[id number] Payer ID:[id number] Group ID:Not on file Type:Medicare Address: [employer] [address] [place] [address] Advance Directives For more information, please contact: [phone] (9AM - 5PM [facility], Monday-Monday) * Full Code (Latest Code Status on File) Date Activated Date Inactivated Comments 05/26/2022 6:57 PM Question Answer Comments Code Status Confirmed With: Patient Care Teams Air Tucker Relationship Specialty Start Date End Date Nicholas Dunlap MD [address] [place] [address] [place] [address] PCP - General Internal Medicine 11/22/23 Additional Source Comments The information contained in this document represents components of the legal health record. It is not the complete legal health record.[facility]
--- OUTSIDE RECORDS SUMMARY | 2025-02-11 08:38 | XMS_ITS | Encounter Summary ---
Author Organization [facility] Address [address] [facility] [address] [place] [address] Phone Care Team Providers Care Boatbuilder Apprentice Wood Name Role Phone Pcp, Unknown Primary Care Provider Larisa Guidry SURFACE SUPPLY BREATHING APPARATUS Primary Care Prov ider Nicholas Dunlap MD Primary Care Provider [phone] [phone] Encounter Details Date Type Department Care Team (Late st Contact Info) Description 12/01/2022 Procedure Pass [facility] [address] [place] [address] Social History Tobacco Use Types Packs/Day Years [...] End Date Used to work in a [employer], now retired Not on file Not on file Not on file documented as of this encounter Plan of Treatment Not on file documented as of this encounter Visit Diagnoses Not on filedocumented in this encounter Care Teams Boatbuilder Apprentice Wood Relationship Specialty Start Date End Date Pcp, Unknown PCP - General 05/26/22 12/01/22 Larisa Amato FNP [address] [place] [address] Dr [address] [place] [address] PCP - General Family Medicine 01/13/23 11/21/23 Nicholas Dunlap MD [address] [place] [address] Dr [address] [place] [address] PCP - General Internal Medicine 11/22/23 documented as of this encounter Additional Source Comments The information contained in this document represents components of the legal health record. It is not the complete legal health record.[facility]
--- OUTSIDE RECORDS SUMMARY | 2025-02-11 08:38 | XMS_ITS | Encounter Summary ---
Author Organization [facility] Address [address] [place] [address] Phone Care Team Providers Care Camera Operator Name Role Phone Pcp, Unknown Primary Care Provider Larisa Guidry Primary Care Prov ider Nicholas Dunlap MD Primary Care Provider +1 [phone] Encounter Details Date Type Department Care Team (Late st Contact Info) Description 05/26/2022 Procedure Pass [facility], Ct Scan - [address] [address] Social History Tobacco Use Types Packs/Day Years [...] End Date Used to work in a [employer], now retired Not on file Not on file Not on file documented as of this encounter Plan of Treatment Not on file documented as of this encounter Visit Diagnoses Not on filedocumented in this encounter Care Teams Camera Operator Relationship Specialty Start Date End Date Pcp, Unknown PCP - General 05/26/22 12/01/22 Larisa Amato FNP [address] [place] [address] [address] [place] [address] PCP - General Family Medicine 01/13/23 11/21/23 Nicholas Dunlap MD [address] [place] [address] [place] [address] PCP - General Internal Medicine 11/22/23 documented as of this encounter Additional Source Comments The information contained in this document represents components of the legal health record. It is not the complete legal health record.[facility]
--- OUTSIDE RECORDS SUMMARY | 2025-02-11 08:38 | XMS_ITS | Encounter Summary ---
Author Organization [facility] Address [address] [facility] [address] [place] [address] Phone Care Team Providers Care Multi Township Assessor Name Role Phone Pcp, Unknown Primary Care Provider Larisa Guidry Primary Care Prov ider Nicholas Dunlap MD Primary Care Provider +1 [phone] Encounter Details Date Type Department Care Team (Late st Contact Info) Description 05/26/2022 Procedure Pass [facility] [address] [place] [address] Social History Tobacco Use Types Packs/Day Years [...] End Date Used to work in a [employer], now retired Not on file Not on file Not on file documented as of this encounter Plan of Treatment Not on file documented as of this encounter Visit Diagnoses Not on filedocumented in this encounter Care Teams Multi Township Assessor Relationship Specialty Start Date End Date Pcp, Unknown PCP - General 05/26/22 12/01/22 Larisa Amato FNP [address] [place] [address] [address] [place] [address] PCP - General Family Medicine 01/13/23 11/21/23 Nicholas Dunlap MD [address] [place] [address] [place] [address] PCP - General Internal Medicine 11/22/23 documented as of this encounter Additional Source Comments The information contained in this document represents components of the legal health record. It is not the complete legal health record.[facility]
--- OUTSIDE RECORDS SUMMARY | 2025-02-11 08:38 | XMS_ITS | Encounter Summary ---
Author Organization [facility] Address [address] [place] [address] Phone Care Team Providers Care Stock Transfer Clerk Name Role Phone Pcp, Unknown Primary Care Provider Larisa Guidry Primary Care Prov ider Nicholas Dunlap MD Primary Care Provider [phone] [phone] Encounter Details Date Type Department Care Team (Late st Contact Info) Description 05/26/2022 Procedure Pass [facility], Ct Scan - [address] [address] Social History Tobacco Use Types Packs/Day Years [...] End Date Used to work in a [employer], now retired Not on file Not on file Not on file documented as of this encounter Plan of Treatment Not on file documented as of this encounter Visit Diagnoses Not on filedocumented in this encounter Care Teams Stock Transfer Clerk Relationship Specialty Start Date End Date Pcp, Unknown PCP - General 05/26/22 12/01/22 Larisa Amato FNP [address] [place] [address] [address] [place] [address] PCP - General Family Medicine 01/13/23 11/21/23 Nicholas Dunlap MD [address] [place] [address] [place] [address] PCP - General Internal Medicine 11/22/23 documented as of this encounter Additional Source Comments The information contained in this document represents components of the legal health record. It is not the complete legal health record.[facility]
== END 2025-02-11 06:56 | disposition home or self-care (01) ==
LOC: CF 06:55
PROVIDERS: Visit Provider Anesthesiology
DX: M47.817 Spondylosis without myelopathy or radiculopathy, lumbosacral region (principal)
CPT/HCPCS: 64493; 64494; J2003; J2795; Q9967

== ENCOUNTER 2025-02-11 09:43 | Outpatient (AMB) | payer MEDICARE, MEDICAID, SELFPAY ==
[2025-02-11 09:44] VITALS: BP 114/68; PULSE 71; RESP 16; O2SAT 91; BMI 34.5
--- NOTE | 2025-02-11 09:44 | MHC.OFFVIS ---
Vital Signs 02/11/25 09:44 02/11/25 10:12 Height 5 ft 3 in Weight 195 lb BMI 34.5 BP 114/68 140/63 H Blood Pressure Location Lt brachial Lt brachial Position Sitting Sitting Respiration 16 16 Pulse 71 68 Pulse Source Pulse Oximeter Pulse Oximeter Pulse Oximetry (%) 91 L 95 Oxygen Delivery Method Room Air Room Air Intake Visit Reasons: Bilateral Diagnostic L3-L4-DR L5 MBB Allergies No Known Allergies Allergy (Verified 01/13/25 17:32) PFSH Medical History Former smoker CVA (cerebral vascular accident) Primary osteoarthritis of left hip Chronic kidney disease, stage III (moderate) Obesity (BMI 30-39.9) GERD without esophagitis Peripheral neuropathy Vitamin D deficiency Mixed hyperlipidemia Essential hypertension Diabetes mellitus Coronary artery disease Gout Myocardial infarction Surgical History Hx of section History of coronary angioplasty with insertion of stent H/O removal of cyst Family History Mother No problems noted. Father Alzheimer disease Brother No problems noted. Daughter No problems noted. Son No problems noted. Son No problems noted. Social History Household Members: Other Housing: Apartment Alcohol intake: never Patient Tobacco Use Status: Former Tobacco user Tobacco use type: Cigarette e-Cigarette/Vaping Use: Former Use Second Hand Smoke Exposure: No Current occupational status: unemployed Cognitive needs: No Hearing needs: No Vision needs: Yes Physical Exam Vital Signs: Last Vital Signs Pulse 68 02/11/25 10:12 Resp 16 02/11/25 10:12 BP 140/63 H 02/11/25 10:12 Pulse Ox 95 02/11/25 10:12 Oxygen Delivery Method Room Air 02/11/25 10:12 BMI result Body Mass Index 34.5 Assessment & Plan Assessment & Plan (1) Lumbosacral spondylosis: Code(s): M47.817 - Spondylosis without myelopathy or radiculopathy, lumbosacral region Category: Medical Plan Diagnostic medial branch block L3,L4 dorsal ramus L5 bilateral.? ? ?Informed consent was explained to the patient. All questions were explained and? answered.? The patient was taken inside the operating room where he was positioned prone on the operating table. Time-out was performed delineating correct site, side, the nature of the procedure, patient's allergy, . All operating room staff was participating in OR time-out procedure. ? ? The lower back was prepped with ChloraPrep and draped with sterile utility towels.? C-arm was brought over the operating field and sq picture of L4-, L5 vertebra and S1 AREA were delineated on the screen.? Point of interest were delineated as confluence of superior articular process of L4 and L5 vertebra bilaterally with corresponding transverse processes as well as confluence of the sacral alae bilaterally with superior articular process of S1.? The projection of the point of interest to the skin were injected with the small amount of local anesthetic lidocaine 2% mixed with ropivacaine 0.5% 1-1 approximately 1 cc.? After that 22 gauge 3.5 inch spinal needle was driven sequentially to the points of interest in tunnel vision fashion. After needles gently contacted the bone at the point of interests the needle was injected with small amount of the contrast.? The injection of the contrast did not demonstrate any intravascular or intrathecal spread of the contrast.? After that injection of the? ropivacaine 0.5%-1cc was performed at each needle location.?After that the needles were removed and Bandaids were applied. Orders: Orders FL guidance in treatment room Today M47.817 - Spondylosis without myelopathy or radiculopathy, lumbosacral region Coding Level of Care Code Procedure Only Diagnoses Lumbosacral spondylosis M47.817
[2025-02-11 10:12] VITALS: BP 140/63; PULSE 68; RESP 16; O2SAT 95
== END 2025-02-11 10:29 | disposition home or self-care (01) ==
LOC: HO.PMCPRC 09:43
PROVIDERS: PCP Internal Medicine; Visit Provider Anesthesiology
DX: M47.817 Spondylosis without myelopathy or radiculopathy, lumbosacral region (principal)
CPT/HCPCS: 64493; 64494